=== PATIENT | female | born 1980 | race Caucasian/White ===

== ENCOUNTER → 2021-06-06 11:05 | Outpatient (CLI) | payer BC, SELFPAY ==
[2021-06-06 11:35] LABS: Basophils # 0.1 K/mm3 (0-0.2); Eosinophils % 0.7 % (0.1-12.0); Hematocrit 39.4 % (37.0-47.0); Hemoglobin 12.5 g/dL (12.2-16.2); Lymphocytes # 1.6 K/mm3 (0.7-4.5); Lymphocytes % 28.2 % (10-50); Mean Corpuscular HGB Conc 31.7 g/dL (31.8-35.4); Mean Corpuscular Hemoglobin 26.2 pg (27.0-31.2); Mean Corpuscular Volume 82.6 fl (81-99); Mean Platelet Volume 7.8 fl (7.4-10.4); Monocytes # 0.2 K/mm3 (0.1-1.0); Monocytes % 3.8 % (1.7-9.3); Neutrophils # 3.8 K/mm3 (1.8-7.8); Neutrophils % 66.3 % (37.0-80.0); Platelet Count 358 K/mm3 (142-424); Red Blood Count 4.78 M/mm3 (4.20-5.40); Red Cell Distribution Width 15.1 % (11.5-17.5); White Blood Count 5.7 K/mm3 (4.8-10.8)
[2021-06-06 11:51] LABS: Alanine Aminotransferase 10 U/L (12-78); Albumin Level 4.1 g/dl (3.5-5.0); Albumin/Globulin Ratio 1.3 (1.1-1.8); Alkaline Phosphatase 80 U/L (38-126); Anion Gap 11.6 mEq/L (5-15); Aspartate Amino Transferase 17 U/L (14-36); Bilirubin,Total 0.3 mg/dl (0.2-1.3); Blood Urea Nitrogen 9 mg/dl (7-17); Calcium 9.1 mg/dl (8.4-10.2); Carbon Dioxide 27 mmol/L (22.0-30.0); Chloride 103 mmol/L (98-107); Chol/HDL Ratio 5.8 (1-3.5); Cholesterol 280 mg/dl (140-200); Estimated Glomerular Filt Rate 93 ml/min (>60); GFR (African American) 112 ML/MIN (>60); Globulin 3.1 g/dL (1.3-3.2); Glucose 93 mg/dl (74-100); HDL Cholesterol 48 mg/dl (40-60); Potassium 4.6 mmoL/L (3.5-5.1); Sodium 137 mmol/L (136-145); Total Protein,Serum 7.2 g/dl (6.3-8.2); Triglycerides 147 mg/dl (30-150); Uric Acid 3.4 mg/dl (2.5-6.2); VLDL Cholesterol 29 mg/dL (0-40)
[2021-06-06 12:03] LABS: Direct LDL Cholesterol 209.84 mg/dL (100-129)
[2021-06-06 12:07] LABS: 25-OH Vitamin D, Total 29.3 ng/mL (30-100)
[2021-06-06 12:22] LABS: Erythrocyte Sedimentation Rate 26 mm/hr (0-20); Thyroid Stimulating Hormone 0.84 uIU/mL (0.465-4.68)
[2021-06-06 12:40] LABS: Vitamin B12 239 pg/mL (239-931)
[2021-06-07 12:20] LABS: RA Latex Turbid. 13.7 IU/mL (<14.0)
[2021-06-07 21:08] LABS: Antinuclear Antibodies, IFA Negative (.)
== END ==
PROVIDERS: PCP Physician Assistant; Visit Provider Physician Assistant
DX: M25.542 Pain in joints of left hand (principal); M25.541 Pain in joints of right hand; R53.83 Other fatigue
CPT/HCPCS: 36415; 80053; 80061; 82306; 82607; 84443; 84550; 85025; 85651; 86038; 86431

== ENCOUNTER → 2021-06-19 14:40 | Outpatient (CLI) | payer BC, SELFPAY ==
[2021-06-19 15:03] LABS: Adenovirus,PCR Not Detected (NotDetected); Bordetella Pertussis Not Detected (NotDetected); Chlamydophila Pneumoniae, PCR Not Detected (NotDetected); Coronavirus 19, PCR Not Detected (NotDetected); Coronavirus 229E Not Detected (NotDetected); Coronavirus NL63 Not Detected (NotDetected); Coronavirus OC43 Not Detected (NotDetected); Coronovirus HKU1,PCR Not Detected (NotDetected); Human Metapneumovirus Not Detected (NotDetected); Influenza A, PCR Not Detected (NotDetected); Influenza AH1, 2009 Not Detected (NotDetected); Influenza AH1, PCR Not Detected (NotDetected); Influenza AH3,PCR Not Detected (NotDetected); Influenza B, PCR Not Detected (NotDetected); Mycoplasma Pneumoniae, PCR Not Detected (NotDetected); Parainfluenza 1, PCR Not Detected (NotDetected); Parainfluenza 2, PCR Not Detected (NotDetected); Parainfluenza 3, PCR Not Detected (NotDetected); Parainfluenza 4, PCR Not Detected (NotDetected); Respiratory Syncytial Virus Not Detected (NotDetected); Rhinovirus/Enterovirus Not Detected (NotDetected)
[2021-06-19 16:48] LABS: Basophils # 0.1 K/mm3 (0-0.2); Basophils % 0.9 % (0.1-2.0); Eosinophils # 0.1 K/mm3 (0.0-0.4); Hemoglobin 12.4 g/dL (12.2-16.2); Lymphocytes # 1.8 K/mm3 (0.7-4.5); Lymphocytes % 25.4 % (10-50); Mean Corpuscular HGB Conc 31.7 g/dL (31.8-35.4); Mean Corpuscular Volume 85.2 fl (81-99); Mean Platelet Volume 7.8 fl (7.4-10.4); Monocytes # 0.4 K/mm3 (0.1-1.0); Neutrophils # 4.8 K/mm3 (1.8-7.8); Neutrophils % 67.7 % (37.0-80.0); Platelet Count 362 K/mm3 (142-424); Red Blood Count 4.58 M/mm3 (4.20-5.40); Red Cell Distribution Width 15.9 % (11.5-17.5); White Blood Count 7.1 K/mm3 (4.8-10.8)
== END ==
PROVIDERS: PCP Physician Assistant; Visit Provider Physician Assistant
DX: Z20.822 Contact with and (suspected) exposure to COVID-19 (principal)
CPT/HCPCS: 36415; 85025; 87581; 87632; 87798; C9803; U0003; U0005

== ENCOUNTER → 2021-07-14 10:42 | Outpatient (CLI) | payer BC, SELFPAY | PROVIDERS: Visit Provider Nurse Practitioner | DX: U07.1 COVID-19 (principal) | CPT/HCPCS: C9803; U0003; U0005 ==

== ENCOUNTER → 2021-10-15 11:23 | Outpatient (CLI) | payer BC, SELFPAY ==
[2021-10-15 12:05] LABS: Basophils # 0.1 K/mm3 (0-0.2); Basophils % 1.6 % (0.1-2.0); Eosinophils # 0.1 K/mm3 (0.0-0.4); Hematocrit 39.8 % (37.0-47.0); Lymphocytes # 1.6 K/mm3 (0.7-4.5); Lymphocytes % 34.5 % (10-50); Mean Corpuscular HGB Conc 32.6 g/dL (31.8-35.4); Mean Corpuscular Hemoglobin 27.8 pg (27.0-31.2); Mean Corpuscular Volume 85.3 fl (81-99); Mean Platelet Volume 7.8 fl (7.4-10.4); Monocytes # 0.2 K/mm3 (0.1-1.0); Monocytes % 3.6 % (1.7-9.3); Neutrophils # 2.7 K/mm3 (1.8-7.8); Neutrophils % 59.4 % (37.0-80.0); Platelet Count 334 K/mm3 (142-424); Red Blood Count 4.67 M/mm3 (4.20-5.40); Red Cell Distribution Width 14.4 % (11.5-17.5); White Blood Count 4.6 K/mm3 (4.8-10.8)
[2021-10-15 13:00] LABS: Alanine Aminotransferase 11 U/L (12-78); Albumin Level 3.8 g/dl (3.5-5.0); Albumin/Globulin Ratio 1.4 (1.1-1.8); Alkaline Phosphatase 77 U/L (38-126); Anion Gap 12.5 mEq/L (5-15); Aspartate Amino Transferase 18 U/L (14-36); Blood Urea Nitrogen 8 mg/dl (7-17); Calcium 9.2 mg/dl (8.4-10.2); Carbon Dioxide 26 mmol/L (22.0-30.0); Chloride 103 mmol/L (98-107); Chol/HDL Ratio 6.8 (1-3.5); Cholesterol 285 mg/dl (140-200); Estimated Glomerular Filt Rate 93 ml/min (>60); GFR (African American) 112 ML/MIN (>60); Globulin 2.7 g/dL (1.3-3.2); Glucose 90 mg/dl (74-100); HDL Cholesterol 42 mg/dl (40-60); Magnesium 1.9 mg/dl (1.6-2.3); Potassium 4.5 mmoL/L (3.5-5.1); Sodium 137 mmol/L (136-145); Total Protein,Serum 6.5 g/dl (6.3-8.2); Triglycerides 206 mg/dl (30-150); VLDL Cholesterol 41 mg/dL (0-40)
[2021-10-15 13:01] LABS: Bilirubin,Total < 0.1 mg/dl (0.2-1.3)
[2021-10-15 13:11] LABS: Direct LDL Cholesterol 200.88 mg/dL (100-129)
[2021-10-15 13:20] LABS: 25-OH Vitamin D, Total 36.8 ng/mL (30-100)
[2021-10-15 13:48] LABS: Vitamin B12 596 pg/mL (239-931)
== END ==
PROVIDERS: Visit Provider Nurse Practitioner Family
DX: R53.83 Other fatigue (principal); E78.5 Hyperlipidemia, unspecified; E53.8 Deficiency of other specified B group vitamins; E55.9 Vitamin D deficiency, unspecified
CPT/HCPCS: 36415; 80053; 80061; 82306; 82607; 83735; 85025

== ENCOUNTER 2021-10-26 05:40 | Emergency (ER) | payer BC, SELFPAY ==
[2021-10-26 05:42] VITALS: BP 171/105; PULSE 86; RESP 18; TEMP 36.9; O2SAT 98; BMI 29.9
--- NOTE | 2021-10-26 05:57 | CT_ITS ---
PROCEDURE INFORMATION: Exam: CT Head Without Contrast Exam date and time: 10/26/2021 6:17 AM Age: 41 years old Clinical indication: Other: Headache; Additional info: HALE x 5 days TECHNIQUE: Imaging protocol: Computed tomography of the head without contrast. Radiation optimization: All CT scans at this facility use at least one of these dose optimization techniques: automated exposure control; mA and/or kV adjustment per patient size (includes targeted exams where dose is matched to clinical indication); or iterative reconstruction. COMPARISON: No prior studies were available at the time of this dictation. FINDINGS: Brain: Normal. No evidence of acute intracranial hemorrhage or acute ischemia demonstrated on the examination. Normal alberts white matter differentiation. No mass effect or midline shift. Cortical sulci and subarachnoid cisterns are unremarkable. Cerebral ventricles: No ventriculomegaly. Paranasal sinuses: Right maxillary sinus mucous retention cyst. Sphenoid sinus mucoperiosteal thickening. Mastoid air cells: Visualized mastoid air cells are well aerated. Bones/joints: Unremarkable. No acute calvarial fracture. Soft tissues: Unremarkable. IMPRESSION: 1. No acute intracranial hemorrhage or ischemia. 2. Sinus disease.
--- NOTE | 2021-10-26 05:59 | HMH.EDHA ---
ED Disposition Clinical Impression: Headache Qualifiers: Headache type: unspecified Headache chronicity pattern: acute headache Intractability: not intractable Qualified Code(s): R51.9 - Headache, unspecified Disposition: Home, Self-Care Condition on Discharge: Good Instructions: DI for Headache Additional Instructions: call pcp for follow up Referrals: April Ayala PA [Primary Care Provider] - - Critical Care Critical Care Time: No Attestation: On , the high probability of a clinically significant, sudden or life threatening deterioration of the following system(s) required my full and direct attention, intervention and personal management. The time I documented below is in addition to time spent performing reported procedures but includes the following listed in this critical care notation. Medical Decision Making - Medical Records Medical records reviewed: Yes: I reviewed the patient's medical records. - Benny Inquiry Pt receiving controlled substance: No Vital Signs: 10/26/21 05:42 Temperature 98.4 F Temperature Source Oral Pulse Rate [Right] 86 Respiratory Rate 18 Blood Pressure [Right Arm] 171/105 H Blood Pressure Mean [Right Arm] 127 02 Sat by Pulse Oximetry 98 - Lab Data Lab results reviewed: Yes: I reviewed the patient's lab results. Lab Results 10/26/21 05:44: Urine HCG, Qual Negative 10/26/21 05:44: Urine Color Yellow, Urine Appearance Clear, Urine pH 5.5, Ur Specific [place] 1.015, Urine Protein Negative, Urine Glucose (UA) Negative, Urine Ketones Negative, Urine Blood 3+, Urine Nitrate Negative, Urine Bilirubin Negative, Urine Urobilinogen 0.2, Ur Leukocyte Esterase 2+ A, Urine RBC 5-10, Urine WBC 3-5, Ur Squamous Epith Cells 5-10, Urine Bacteria Trace 10/26/21 06:03: WBC 10.7, RBC 4.93, Hgb 13.5, Hct 41.6, MCV 84.4, MCH 27.4, MCHC 32.4, RDW 14.0, Plt Count 387, MPV 8.3, Neut % (Auto) 87.3 H, Lymph % (Auto) 10.2, [place] % (Auto) 1.5 L, Eos % (Auto) 0.1, Baso % (Auto) 0.9, Neut # (Auto) 9.4 H, Lymph # (Auto) 1.1, [place] # (Auto) 0.2, Eos # (Auto) 0.0, Baso # (Auto) 0.1, Total Counted 100, Neutrophils % (Manual) 81 H, Band Neutrophils % 9.0 H, Lymphocytes % (Manual) 8 L, Monocytes % (Manual) 2, Platelet Estimate Normal, RBC Morphology Normal, ESR 32 H 10/26/21 06:03: Sodium 136, Potassium 4.3, Chloride 104, Carbon Dioxide 24, Anion Gap 12.3, BUN 7, Creatinine 0.70, Estimated Creat Clear 138, Estimated GFR 93, Est GFR ( Amer) 112, Glucose 133 H, Calcium 9.2, Total Bilirubin < 0.1 L, AST 23, ALT 19, Alkaline Phosphatase 79, C-Reactive Protein 13.4 H, Total Protein 7.5, Albumin 4.1, Globulin 3.4 H, Albumin/Globulin Ratio 1.2, Procalcitonin 0.043 10/26/21 06:03: Magnesium 1.9 Result diagrams: 10/26/21 06:03 10/26/21 06:03 Orders (Tests/Meds): ED MEDICATIONS Generic Name Dose Route Start Last Admin Trade Name Freq PRN Reason Stop Dose Admin Sodium Chloride 1,000 mls @ 999 mls/hr 10/26/21 06:15 10/26/21 06:11 Sod Chlor 0.9% 1000ml Bag IV 10/26/21 07:15 999 mls/hr .Q1H1M SHARLENE Administration Sodium Chloride 8 ml 10/26/21 05:57 Sodium Chloride 0.9% 10ml Vial IV 11/25/21 05:56 NEEDED PRN dilute pepcid Discontinued Medications Generic Name Dose Route Start Last Admin Trade Name Freq PRN Reason Stop Dose Admin Diphenhydramine HCl 50 mg 10/26/21 05:57 10/26/21 06:11 Diphenhydramine 50mg/Ml Vial IV 10/26/21 05:58 50 mg ONCE ONE Administration Famotidine 20 mg 10/26/21 05:57 10/26/21 06:11 Famotidine 20mg/2ml Vial IV 10/26/21 05:58 20 mg ONCE ONE Administration Ketorolac Tromethamine 30 mg 10/26/21 05:57 10/26/21 06:11 Ketorolac 30mg/Ml Vial IV 10/26/21 05:58 30 mg ONCE ONE Administration Prochlorperazine Edisylate 10 mg 10/26/21 05:57 10/26/21 06:11 Prochlorperazine 10mg/2ml Vial IV 10/26/21 05:58 10 mg ONCE ONE Administration ORDERS Category Date Time Status Urine Culture Stat Micro 10/26/21 05:44 R
[2021-10-26 06:10] LABS: Urine Pregnancy, HCG Qual. Negative (Negative)
[2021-10-26 06:11] LABS: Microscopic, Urine URINE MICROSCOPIC (MICROSCOPIC)
[2021-10-26 06:11] LABS: Basophils # 0.1 K/mm3 (0-0.2); Basophils % 0.9 % (0.1-2.0); Eosinophils % 0.1 % (0.1-12.0); Hematocrit 41.6 % (37.0-47.0); Hemoglobin 13.5 g/dL (12.2-16.2); Lymphocytes # 1.1 K/mm3 (0.7-4.5); Lymphocytes % 10.2 % (10-50); MANUAL DIFFERENTIAL MANUAL DIFFERENTIAL (MANUAL DIFF); Mean Corpuscular HGB Conc 32.4 g/dL (31.8-35.4); Mean Corpuscular Hemoglobin 27.4 pg (27.0-31.2); Mean Corpuscular Volume 84.4 fl (81-99); Mean Platelet Volume 8.3 fl (7.4-10.4); Monocytes # 0.2 K/mm3 (0.1-1.0); Monocytes % 1.5 % (1.7-9.3); Neutrophils # 9.4 K/mm3 (1.8-7.8); Neutrophils % 87.3 % (37.0-80.0); Platelet Count 387 K/mm3 (142-424); Red Blood Count 4.93 M/mm3 (4.20-5.40); White Blood Count 10.7 K/mm3 (4.8-10.8)
[2021-10-26 06:15] LABS: Appearance,Urine CLEAR (Clear); Bilirubin,Urine Negative (Negative); Blood, Urine 3+ (Negative); Color,Urine YELLOW (Yellow); Glucose,Urine (UA) Negative (Negative); Ketones,Urine Negative (Negative); Leukocyte Esterase,Urine 2+ (Negative); Nitrate,Urine Negative (Negative); PH,Urine 5.5 (5.0-8.5); Protein,Urine Negative (Negative); Specific Gravity, Urine 1.015 (1.005-1.030); Urobilinogen,Urine 0.2 EU/dl (0.2)
[2021-10-26 06:22] LABS: Alanine Aminotransferase 19 U/L (12-78); Albumin Level 4.1 g/dl (3.5-5.0); Albumin/Globulin Ratio 1.2 (1.1-1.8); Alkaline Phosphatase 79 U/L (38-126); Anion Gap 12.3 mEq/L (5-15); Aspartate Amino Transferase 23 U/L (14-36); Blood Urea Nitrogen 7 mg/dl (7-17); Calcium 9.2 mg/dl (8.4-10.2); Carbon Dioxide 24 mmol/L (22.0-30.0); Chloride 104 mmol/L (98-107); Creatinine Clearance Estimated 138 mL/min (50-200); Estimated Glomerular Filt Rate 93 ml/min (>60); GFR (African American) 112 ML/MIN (>60); Globulin 3.4 g/dL (1.3-3.2); Glucose 133 mg/dl (74-100); Magnesium 1.9 mg/dl (1.6-2.3); Potassium 4.3 mmoL/L (3.5-5.1); Sodium 136 mmol/L (136-145); Total Protein,Serum 7.5 g/dl (6.3-8.2)
[2021-10-26 06:23] LABS: Lymphocytes % 8 % (10-50); Monocytes % 2 % (2-9); Neutrophils % 81 % (42-76); Platelet Estimate Normal; RBC Morphology Normal; Total Cells Counted 100
[2021-10-26 06:24] LABS: Bilirubin,Total < 0.1 mg/dl (0.2-1.3)
[2021-10-26 06:27] LABS: C-Reactive Protein 13.4 mg/L (0-4)
[2021-10-26 06:31] LABS: Bacteria,Urine Trace /lpf
[2021-10-26 06:40] LABS: Erythrocyte Sedimentation Rate 32 mm/hr (0-20)
[2021-10-26 06:41] LABS: Procalcitonin 0.043 ng/mL (0.0-2.0)
[2021-10-26 07:35] VITALS: BP 152/78; PULSE 78; RESP 16; TEMP 36.6; O2SAT 98
== END 2021-10-26 07:37 | disposition home or self-care (01) ==
PROVIDERS: Emergency Provider Emergency Medicine; PCP Physician Assistant
DX: R51.9 Headache, unspecified (principal); Z86.69 Personal history of other diseases of the nervous system and sense organs; Z88.1 Allergy status to other antibiotic agents
CPT/HCPCS: 70450; 80053; 81001; 81025; 83735; 84145; 85007; 85025; 85651; 86140; 87086; 96365; 96375; 99284

== ENCOUNTER → 2022-07-14 10:22 | Outpatient (CLI) | payer BC, SELFPAY ==
--- NOTE | 2022-07-14 10:36 | US_ITS ---
FINAL REPORT CLINICAL HISTORY: IRREGULAR MENSTRUAL BLEEDING FINDINGS: Transvaginal sonographic images of the pelvis were obtained. The uterus measures 7.6 x 2.7 x 3.6 cm. The endometrium measures 3 mm. There is a 4 mm hyperechoic focus adjacent to the endometrium of uncertain etiology, could represent a small cyst. The left ovary is not visualized consistent with surgical resection. The right ovary measures 3.0 cm in length. There is a small cyst or follicle in the right ovary measuring 11 mm. No free fluid is identified. IMPRESSION: Hyperechoic focus adjacent to the endometrium, could represent a small mass. Follow-up ultrasound or MRI may be helpful. Reviewed, Interpreted and Dictated by Armand Barboza III, MD Transcribed by Yoly Rivero Authenticated and [facility]
== END ==
LOC: RAD 10:22
PROVIDERS: PCP Physician Assistant; Visit Provider Physician Assistant
DX: N92.6 Irregular menstruation, unspecified (principal)
CPT/HCPCS: 76830

== ENCOUNTER → 2022-09-30 12:51 | Outpatient (CLI) | payer BC, SELFPAY ==
--- NOTE | 2022-09-30 12:58 | MM_ITS ---
PROCEDURE INFORMATION: Exam: MG Bilateral Screening 3D Mammography Exam date and time: 09/30/2022 12:53 PM Age: 42 years old Clinical indication: Screening examination; Additional info: Routine screening mammogram TECHNIQUE: Imaging protocol: Bilateral Screening tomosynthesis and 2D mammography including computer-aided detection (CAD) when performed. COMPARISON: 1. MG SCREENING DG MAMMOGRAM 05/06/2021 9:17 AM 2. MG ANTHONY DIAG DG MAMMOGRAM 05/01/2020 10:50 AM 3. US BREAST BILAT LIMITED 05/01/2020 11:08 AM FINDINGS: MAMMOGRAPHY: Breast composition: The breasts are heterogeneously dense, which may obscure small masses. Mass: No suspicious masses. Architectural distortion: No suspicious distortion. Calcifications: No suspicious calcifications. Asymmetric density: None. Skin thickening: None. Axillary adenopathy: None. IMPRESSION: No mammographic evidence of malignancy. Annual screening is recommended unless otherwise clinically indicated. ASSESSMENT: BI-RADS Category 1: Negative
--- NOTE | 2022-09-30 12:58 | US_ITS ---
FINAL REPORT CLINICAL HISTORY: followup hyperechoic focus adjacent to endometrium COMPARISON: July 14, 2022 FINDINGS: PELVIC ULTRASOUND Transvaginal pelvic exam: Uterus shows normal size and morphology. Endometrial stripe measures 2 mm. Ovoid hyperechoic subendometrial lesion near the anterior uterine fundus measuring 3 mm. No new subendometrial lesion. Right ovary shows normal and size morphology. Normal flow is seen by Doppler exam There is no free fluid. IMPRESSION: 3 mm hyperechoic ovoid sub endometrial lesion may represent adenomyosis or less likely a small polyp. Reviewed, Interpreted and Dictated by Dhiraj Cleaning MD Transcribed by Link Dozier Authenticated and [facility]
== END ==
LOC: RAD 12:54
PROVIDERS: PCP Physician Assistant; Visit Provider Obstetrics & Gynecology
DX: N93.9 Abnormal uterine and vaginal bleeding, unspecified (principal); R93.89 Abnormal findings on diagnostic imaging of other specified body structures; Z12.31 Encounter for screening mammogram for malignant neoplasm of breast
CPT/HCPCS: 76830; 77063; 77067

== ENCOUNTER → 2022-09-30 14:48 | Outpatient (POV) | payer BC, SELFPAY | PROVIDERS: Visit Provider Dermatology | DX: Z00.00 Encounter for general adult medical examination without abnormal findings (principal) ==

== ENCOUNTER 2023-11-06 09:47 | Outpatient (CLI) | payer BC, SELFPAY ==
--- NOTE | 2023-11-06 09:52 | MM_ITS ---
PROCEDURE INFORMATION: Exam: MG Bilateral Screening 3D Mammography Exam date and time: 11/06/2023 9:47 AM Age: 43 years old Clinical indication: Screening examination TECHNIQUE: Imaging protocol: Bilateral Screening tomosynthesis and 2D mammography including computer-aided detection (CAD) when performed. COMPARISON: 1. MG MM DIG SCREENING MAMM BI W/CAD 09/30/2022 12:53 PM 2. MG SCREENING DG MAMMOGRAM 05/06/2021 9:17 AM FINDINGS: MAMMOGRAPHY: Breast composition: The breasts are heterogeneously dense, which may obscure small masses. Mass: None. Architectural distortion: None. Calcifications: No suspicious calcifications. Asymmetric density: None. Skin thickening: None. Axillary adenopathy: None. IMPRESSION: No mammographic evidence of malignancy. Annual screening is recommended unless otherwise clinically indicated. ASSESSMENT: BI-RADS Category 1: Negative
== END 2023-11-06 23:59 | disposition home or self-care (01) ==
LOC: RAD 09:49
PROVIDERS: PCP Physician Assistant; Visit Provider Obstetrics & Gynecology
DX: Z12.31 Encounter for screening mammogram for malignant neoplasm of breast (principal)
CPT/HCPCS: 77063; 77067

== ENCOUNTER 2024-04-14 12:42 | Outpatient (RCR) | payer BC, SELFPAY | END 2024-04-14 23:59 | disposition home or self-care (01) | LOC: OT 12:42 | PROVIDERS: PCP Physician Assistant; Visit Provider Physician Assistant | DX: M62.838 Other muscle spasm (principal) ==

== ENCOUNTER 2024-04-14 13:52 | Outpatient (RCR) | payer BC, SELFPAY ==
--- NOTE | 2024-04-14 16:17 | HMH.PTOPEV ---
PT Outpatient Evaluation Rehab PT Outpatient Evaluation Start: 04/14/24 15:56 Freq: Status: Active Protocol: Document 04/14/24 15:56 TAMARA (Rec: 04/14/24 16:16 TAMARA [id number]) E-signed By Francis Aleman, PT Outpatient Therapy Subjective History Subjective History The patient is a 44 yof who presents to OP therapy with complaints of bilateral neck pain that is in her neck and down to her shoulders and between her scapulae. She reports this has been going on for about a year, but became more severe approximately 3-4 months ago. She reports that she recently underwent a divorce, in which she felt she was in an unsafe environment. She reports that she spent lots of time lying in the bedroom alone with her neck in an awkward position. She believes this, along with the stress could be the cause. She reports she has difficulty turning her head to the right. She reports her neck pain is much worse at the conclusion of the day and sometimes feels like she can barely hold her head up. She reports one episode of bilateral tingling into the hands which was over a month ago and only last for a few seconds. She reports difficulty with deskwork due to the position that she must keep her head. She reports that she was recently prescribed prednisone, which seems to have helped some. New diagnosis of cancer in past 12 No months? Chief Complaint Pain,Stiff,Gives out/Unstable Symptom Type Ache,Throb Symptoms Relieved By Rest/Positioning,Heat, Prescription Meds Symptoms Aggravated By Sitting,Twisting Prior Functional Limitations None Current Functional Limitations Lifting,Desk Work/Reading, Driving,Sleeping Level of pain today (0-10) 3 Pain scale - at its best (0-10) 9 Pain scale - at its worst (0-10) 2 Cervical Eval Palpation Cervical Muscles R Cervical Paraspinal,L Cervical Paraspinal,R CT Junction,L CT Junction,R Upper Trapezius,L Upper Trapezius,R Thoracic Paraspinals,L Thoracic Paraspinals Cervical/Thoracic Palpation Findings Tenderness,Spasm Posture Head/C-Spine Posture Sitting Position Neutral Position Head/C-Spine Posture Standing Position Neutral Position Flexibility Deficits Upper Trapezius Muscle Length (R) Moderate Tightness,(L) Moderate Tightness Levaetor Scapulae Muscle Length (R) Moderate Tightness,(L) Moderate Tightness Pectoralis Minor Muscle Length (R) Moderate Tightness,(L) Moderate Tightness Passive Joint Mobility Cervical PIVM Dec: R C5/6 L C5/6 R C6/7 L C6/7 R C7/T1 L C7/T1 WNL: R OA L OA R AA L AA R C2/3 L C2/3 R C3/4 L C3/4 R C4/5 L C4/5 AROM Cervical Spine Extension Active Range of 12 Motion (degrees) Cervical Spine Flexion Active Range of 34 Motion (degrees) Cervical Spine Right Lateral Flexion 18 Active Range of Motion (degrees) Cervical Spine Left Lateral Flexion 15 Active Range of Motion (degrees) Cervical Spine Right Rotation Active 20 Range of Motion (degrees) Cervical Spine Left Rotation Active 28 Range of Motion (degrees) MMT Bilateral Deltoid (C5) 5 Normal Biceps Brachii Strength Grade 5 Normal Wrist Extension Strength Grade 5 Normal Triceps Brachii Strength Grade 5 Normal Wrist Flexion Strength Grade 5 Normal Extensor Pollicis Longus Strength Grade 5 Normal Finger Abduction Strength Grade 5 Normal DTR Rt Biceps 2+ Lt Biceps 2+ Rt Brachioradialis 2+ Lt Brachioradialis 2+ Rt Triceps 2+ Lt Triceps 2+ Special Test C-Spine Foraminal Compression ([place]) Negative Left,Negative Right Test C-spine Verterbral Accessory Movements Central P/A [place],Right P/A that Elicit Symptoms [place] C-Spine Foraminal Distraction Test Negative C-Spine Compression Test Negative Left,Negative Right Neck Disability Index Neck Disability Index Section 1: Pain Intensity The pain is moderate at the moment Section 2: Personal Care (washing, It is painful to look after dressing, etc.) myself and I am slow and careful Section 3: Lifting I can lift heavy weights but it gives extra pain Section 4: Reading I can't read as much as I want because of moderate pain in my neck Section 5: Headaches I have slight headaches, which come infrequently Section 6: Concentration I can concentrate fully when I want to with slight difficulty Section 7: Work I can do most of my usual work , but no more Section 8: Driving I can drive my car as long as I want with moderate pain in my neck Section 9: Sleeping My sleep is moderately disturbed (2-3 hrs. sleepless) Section 10: Recreation I am able to engage in a few of my usual recreation activities because NDI Score 20 Miscellaneous Dx PT Eval Objective Objective Rhomboid B: 3/5 Lower Trap B: 3/5 TTP 2/4: B T1-T4 Deep Cervical Neck Flexor Endurance: 4 seconds Outpatient Therapy Assessment Impairments Problems/Impairmments Palpation Tenderness,Impaired Range of Motion,Impaired Strength,Impaired Endurance, Impaired Desk/Computer Activities,Subjective C/O Pain Prognosis Rehab Potential Good Comment Pt demonstrates impairments in deep cervical neck flexor endurance, accompanied with subjective reports of cervical instability. The pt also demonstrates impaired ROM of the cervical spine along with a kyphotic and hypomobile thoracic spine. These signs and symptoms are consistent with neck pain with movement coordination impairments. Clinical Impression Consistent with Diagnosis Yes Short Term Goals Number of Weeks 4 Decreased Palpation Tenderness Yes: 1/4 to cervical spine and thoracic spine Increase Range of Motion Yes: 75% WNL Increase Strength Yes: 4/5 to Lower trap and Rhomboids BL Increase Endurance Yes: DCNF: 15s Increase Ability to Drive/Ride in Car Yes: 1 hour with minimal difficulty Improve Tolerance to Desk/Computer Yes: Normal days work with 3/ Activities 10 pain Improve Neck Disability Index Score Yes: to 13 Decrease Subjective C/O Pain Yes: 5/10 at worst Patient to be Ind w/ HEP Yes Fdc Goals Number of Weeks 8 Decreased Palpation Tenderness Yes: 0/4 to C and T spine Increase Range of Motion Yes: WNL Increase Strength Yes: 5/5 to rhomboids and lower trap Increase Endurance Yes: DCNF to 30s Increase Ability to Drive/Ride in Car Yes: 2 hours no difficulty Improve Tolerance to Desk/Computer Yes: Normal days work with no Activities pain or symptoms Improve Neck Disability Index Score Yes: to 5 Decrease Subjective C/O Pain Yes: 2/10 at worst Patient to be Ind w/ Advanced HEP Yes Outpatient Therapy Plan of Care Treatment Plan May Include Therapeutic Exercise Including Home Yes Exercise Program Manual Therapy Techniques Yes Neuromuscular Re-education Yes Therapeutic Activities to Return to Yes Previous Functional/Work Level Gait Training Yes ADL/Self Care Education Yes Mechanical Traction Yes Dry Needling Yes Thermal Modalities Yes Electrical Stimulation Yes Ultrasound/Phonophoresis Yes Massage Yes Manual Lymphatic Drainage Yes Eval/Re-Eval Yes Frequency Times per week 2 Duration Number of Weeks 8 Addendums This patient is a candidate for social No or vocational rehab? Patient/Guardian verbally acknowledges Yes understanding of treatment program and consents to further treatment? Patient/Guardian verbally acknowledges Yes understanding of diagnosis, prognosis and goals for treatment? Eval Complexity PT Charges 57230 - Moderate Complexity Shoulder/Elbow Eval Shoulder Objective Measurements Elbow Objective Measurements PHYSICIAN CERTIFICATION: I certify the specified therapy services for Jacqui Pedro are required, authorized, and reviewed every 30 days.
== END 2024-04-14 23:59 | disposition home or self-care (01) ==
LOC: PT 13:52
PROVIDERS: Visit Provider Physician Assistant
DX: M62.838 Other muscle spasm (principal)
CPT/HCPCS: 97163

== ENCOUNTER 2024-06-01 09:54 | Outpatient (CLI) | payer BC, SELFPAY ==
[2024-06-01 10:34] LABS: Magnesium 1.8 mg/dl (1.6-2.3)
[2024-06-01 10:53] LABS: Free Thyroxine Index 3.5 ug/dL (5.93-13.13); T4 (Thyroxine) 15.4 ug/dl (5.53-11.0); Triiodothryronine (T3) Uptake 23 % (23.5-40.5)
[2024-06-01 10:55] LABS: HCG,Quantitative < 2 mIU/ml (0-5.42)
[2024-06-01 11:07] LABS: Thyroid Stimulating Hormone 2.48 uIU/mL (0.465-4.68)
[2024-06-01 11:31] LABS: Ferritin 11.3 ng/ml (6.24-137)
[2024-06-01 11:55] LABS: Folate > 20.00 ng/mL
[2024-06-02 03:41] LABS: Estradiol 11.2 pg/mL (.); FSH 3.2 mIU/mL (.); Testosterone,Total 44 ng/dL (4-50)
[2024-06-02 05:08] LABS: Thyroid Peroxidase Antibodies 14 IU/mL (0-34)
[2024-06-02 08:14] LABS: LH 3.4 mIU/mL (.)
== END 2024-06-01 23:59 | disposition home or self-care (01) ==
PROVIDERS: PCP Physician Assistant; Visit Provider Obstetrics & Gynecology
DX: R53.83 Other fatigue (principal); F33.9 Major depressive disorder, recurrent, unspecified; F41.1 Generalized anxiety disorder
CPT/HCPCS: 36415; 82670; 82728; 82746; 83001; 83002; 83735; 84403; 84436; 84443; 84479; 84702; 86376

== ENCOUNTER 2024-06-21 11:05 | Outpatient (CLI) | payer BC, SELFPAY | END 2024-06-21 23:59 | disposition home or self-care (01) | LOC: RT 11:06 | PROVIDERS: PCP Physician Assistant; Visit Provider Internal Medicine | DX: R00.2 Palpitations (principal) | CPT/HCPCS: 93270 ==

== ENCOUNTER 2024-07-01 10:40 | Outpatient (CLI) | payer BC, SELFPAY ==
--- NOTE | 2024-07-01 10:43 | CA_ITS ---
APPROVED REPORT EXAM: Comprehensive 2D, Doppler, and color-flow Echocardiogram Analysis Director: Janis Mclean RT(R) Ht: 5 ft 5 in Wt: 184lbs BSA: 1.91 BP: 150/93 mmHg Indications: abn EKG, dyspnea, chest tightness, CP, HTN, hyperlipidemia, SRINIVASAN, ALY. 2D Dimensions Left Atrium 2.65 cm F: 2.7 - 3.8 LVEF (Lopez's) 56.30 % F: 54 - 74 LVOT 1.80 cm (M/F) 1.5-2.5 LV Volume 87.00 mL F: 46 - 106 LV Volume Index 45.5 mL/m2 F: 29 - 61 LA Volume 19.40 mL LA Volume Index 10.16 mL/m2 (M/F) 16-34 EF AP4 60.50 % EF AP2 43.2 % EF BP 56.3 % GL Strain -13.6 % M-Mode Dimensions RVDd 1.93 cm (0.9-2.6) LVDd 4.65 cm (3.5-5.7) Ao Diam 2.83 cm (2.0-3.7) LVDs 3.40 cm (3.5-5.7) IVSd 0.54 cm (0.6-1.1) PWd 0.75 cm (0.6-1.1) EF (Teich) 52.50% FS 26.90% EDV (Teich) 99.80 mL ESV (Teich) 47.40 mL LV Diastology E Decel Time 153 (160-240 msec) E/A Ratio 0.8 MED E' 7.2 (>= 7 cm/sec) E'/MED E' Ratio 8.42 (<= 14) LAT E' 8.9 (>= 10 cm/sec) E/LAT E' Ratio 6.81 (<= 14) Mitral Valve MV E Max Ace. 61.0 (40-130 cm/s) MV A Velocity 73.0 (40-130 cm/s) E/A Ratio 0.83 MV Decel. Time 153 (160-240 ms) Left Ventricle The left ventricle is normal size. The left ventricular systolic function is normal. The left ventricular ejection fraction is within the normal range. There is normal left ventricular wall thickness. There is normal LV segmental wall motion. The left ventricular diastolic function is normal. LVEF is 60%. Right Ventricle The right ventricle is normal size. The right ventricular systolic function is normal. Atria The left atrium size is normal. The right atrium size is normal. There is no Doppler evidence of interatrial shunt. Aortic Valve The aortic valve opens well. There is no aortic valvular stenosis. No aortic regurgitation is present. Mitral Valve The mitral valve is normal in structure. No evidence of mitral valve stenosis. There is no mitral valve regurgitation noted. Tricuspid Valve Tricuspid valve is grossly normal in structure and function. Trace tricuspid regurgitation. There is insufficient TR jet to estimate RVSP. Pulmonic Valve The pulmonary valve is normal in structure. Trace pulmonic regurgitation. Great Vessels The aortic root is normal in size. IVC is normal in size and collapses >50% with inspiration. Pericardium There is no pericardial effusion. Other Information Study Quality: Adequate Conclusion Normal biventricular systolic function. No significant valvular stenosis or regurgitation. Electronically signed by : Licha Flynn MD 07/09/2024 23:58:35
--- NOTE | 2024-07-01 10:44 | CT_ITS ---
APPROVED REPORT Client Consultant: CLINICAL INDICATION Chest Pain TECHNIQUE Image Acquisition: A 128 slice MDCT scanner ([employer] View) was used for data acquisition. A noncontrast coronary calcium scan was performed. A CT attenuation threshold of 130 Hounsfield units (HU) was used for the detection of calcium in contiguous voxels of 1 sq mm in area to be counted as individual lesions. Bolus tracking in the ascending aorta with a threshold of 180 HU was performed. Immediately afterwards, ECG synchronized cardiac CT was then performed from the cardiac base to apex using retrospective gating with ECG tube current modulation. A total of 85 mL of Isovue 370 mg/mL contrast medium was administered at 5 mL/sec followed by a saline flush using a biphasic injection protocol. A tube voltage of 120 KVp was used. The patient received the following medications prior to the cardiac CT. 75 mg of oral metoprolol 15 mg of oral ivabradine The average heart rate at the time of acquisition was 55 bpm and regular. Image Reconstruction Transaxial images were reconstructed at 0.67 mm slide thickness. Data was reviewed interactively on an advanced workstation capable of 2 and 3-dimensional displays in all conventional reconstruction formats, including multiplanar reformations, maximum intensity projections, curved multiplanar reformations, and volume rendered reconstructions. When applicable, selected routine images describing the relevant coronary anatomy and pathology were saved and sent to PACS. Complications None Technical Quality Overall image quality was good. Coronary artery opacification was adequate. Total DLP (Dose-Length Product) is 1757.4 mGy-cm. The reported value represents the total of one or more individual components during the CT acquisition of this date and at this time, and as such, the same value may appear in more than one CT report depending on the interpreting/reporting physicians. COMPARISON None FINDINGS CT Coronary Calcium Scoring LMA (Left Main Artery) = 0 LAD (Left Anterior Descending) = 8 LCX (Left Coronary Circumflex) = 0 RCA (Right Coronary Artery) = 0 Total Calcium Score = 8 using the AJ-130 method. The observed calcium score of 8 is at 96th percentile for subjects of the same age, sex, and race/ethnicity. The interpretation of the calcium heart score is based on the following continuum*: 0 = no calcified plaque detected (risk of coronary artery disease is very low ??? less than 5%) 1-10 = calcium detected in extremely minimal levels (risk of coronary diseases is still low ??? less than 10%) 11-100 = mild levels of plaque detected with certainty (mild or minimal narrowing of heart arteries is likely) 101-400 = definite,at least moderate levels of plaque detected (relatively high risk of a heart attack within 3-5 years) >401-999 = extensive levels of plaque detected (high risk of heart attack, high levels of vascular disease are present, high likelihood of at least one significant coronary narrowing) *The calcium heart score quantifies the burden of coronary calcification/plaque in the coronary arteries. The calcium heart score is not able to evaluate the presence or burden of non-calcified (i.e. soft) plaque. There is no identifiable calcification in the aortic valve, mitral annulus or mitral valve, pericardium, or myocardium. Coronary CT Angiography The coronary arterial system is right dominant. Quantitative Stenosis Grading: Left Main (LM): The left main originates normally from the left sinus of Valsalva. The LM bifurcates into the left anterior descending artery and left circumflex artery. The LM is patent with no evidence of atherosclerosis. Left Anterior Descending (LAD) and Diagonal Branches: The LAD gives off 3 diagonal branch(es). There is mixed calcified/non-calcified plaque in proximal LAD segment, with 25-49% luminal stenosis. There is no evidence of LAD-myocardial bridge. Left Circumflex (LCX) and Obtuse Marginals (OM): The LCX gives off 1 Obtuse Marginal (OM) branch(es). The LCX and its branches are patent with no evidence of atherosclerosis. Right Coronary Artery (RCA): The RCA originates normally from the right sinus of Valsalva. The RCA gives off a posterior descending artery (PDA) and posterolateral (PL) branches. The RCA and its branches are patent with no evidence of atherosclerosis. Non-Coronary Cardiac Findings: Analysis of the left ventricular (LV) structure and function was performed after 3-D reconstruction of the LV from axial images, with user-corrected automatic contouring for assessment of LV volumes and user-defined reconstruction from oblique planes for measurement of 3-D cardiac structure and function. -The left ventricle systolic function is normal. -There is no left atrial appendage filling defect. Two right pulmonary veins and two left pulmonary veins drain normally into the left atrium. -No pericardial thickening or calcification. -Central and branch pulmonary arteries in the qplom-rv-hoec are unremarkable. -Thoracic aorta within the visualized thoracic aortic-branches in the lhsvd-xi-vhpf is unremarkable. Extracardiac Structures No significant extra-cardiac findings. Note, however, that this study is focused on the cardiac findings. IMPRESSION -Presence of coronary calcification with an Agatston score = 8 using the AJ-130 method. -The observed calcium score of 8 is at 96th percentile for subjects of the same age, sex, and race/ethnicity. -Mild non-obstructive atherosclerosis in the proximal LAD segment, with no evidence of significant flow-limiting atherosclerosis of the coronary arteries. -CAD-RADS 2. Management recommendations per ACC/AHA guidelines*, as clinically appropriate. *Recommendations: CAD RADS 0: Reassurance. Consider non-atherosclerotic causes of chest pain. CAD RADS 1: Consider non-atherosclerotic causes of chest pain. Consider preventive therapy and risk factor modification. CAD RADS 2: Consider non-atherosclerotic causes of chest pain. Consider preventive therapy and risk factor modification, particularly for patients with nonobstructive plaque in multiple segments. CAD RADS 3: Consider further functional testing. Consider symptom-guided anti-ischemic and preventive pharmacotherapy as well as risk factor modification per published guideline statements. CAD RADS 4A: Consider further functional testing or invasive coronary angiography with revascularization per published guideline statements. Consider symptom-guided anti-ischemic and preventive pharmacotherapy as well as risk factor modification per published guideline statements. CAD RADS 4B: Invasive coronary angiography recommended with revascularization per published guideline statements. Consider symptom-guided anti-ischemic and preventive pharmacotherapy as well as risk factor modification per published guideline statements. CAD RADS 5: Consider invasive angiography and/or viability assessment with revascularization per published guideline statements. Consider symptom-guided anti-ischemic and preventive pharmacotherapy as well as risk factor modification per published guideline statements. CRITICAL RESULT None COMMUNICATION Per this written report The coronary and cardiac findings of this CCTA were reviewed, reported, and signed by Rakesh Flynn MD (Blueprint Tracer) Conclusion Electronically signed by : Licha Flynn MD 07/04/2024 11:19:43
[2024-07-01 11:34] VITALS: BMI 30.6
[2024-07-01] MEDS: METOPROLOL TARTRATE 50MG TABLET PO (11:49)
[2024-07-01] MEDS: IVABRADINE HCL 7.5MG TABLET PO (11:49)
[2024-07-01 11:53] LABS: Urine Pregnancy, HCG Qual. Negative (Negative)
[2024-07-01 11:55] LABS: Chloride 100 mmol/L (98-107); Sodium 137 mmol/L (136-145)
[2024-07-01 11:56] LABS: Potassium 4.1 mmoL/L (3.5-5.1)
[2024-07-01 11:58] LABS: Blood Urea Nitrogen 11 mg/dl (7-17); Creatinine Clearance Estimated 137 mL/min (50-200); Estimated Glomerular Filt Rate 91 ml/min (>60); GFR (African American) 111 ML/MIN (>60)
[2024-07-01 11:59] LABS: Anion Gap 10.1 mEq/L (5-15); Calcium 9.1 mg/dl (8.4-10.2); Carbon Dioxide 31 mmol/L (22.0-30.0); Glucose 98 mg/dl (74-100)
[2024-07-01 12:48] VITALS: BP 184/100; PULSE 65; RESP 16; O2SAT 99
[2024-07-01 12:51] VITALS: BP 160/96; PULSE 62; RESP 16; O2SAT 99
[2024-07-01 12:54] VITALS: BP 131/90; PULSE 61; RESP 16; O2SAT 99
[2024-07-01] MEDS: SODIUM CHLORIDE 0.9% 10ML SYR (RAD ONLY) 10 ML IV (13:01)
[2024-07-01] MEDS: IOPAMIDOL-370 (76%);100ML BOTTLE 85 ML IV (13:01)
[2024-07-01] MEDS: 0.9 % SODIUM CHLORIDE 50 ML VIAL IV (13:01)
[2024-07-01 13:05] VITALS: BP 135/81; PULSE 60; RESP 16; O2SAT 99
== END 2024-07-01 13:10 | disposition home or self-care (01) ==
LOC: RT 10:41 → RAD 11:33
PROVIDERS: PCP Physician Assistant; Visit Provider Internal Medicine
DX: R94.31 Abnormal electrocardiogram [ECG] [EKG] (principal); R06.00 Dyspnea, unspecified; I10 Essential (primary) hypertension; R40.0 Somnolence; R07.89 Other chest pain
CPT/HCPCS: 75574; 80048; 81025; 93306; Q9967

== ENCOUNTER → 2024-07-18 06:16 | Outpatient (CLI) | payer BC, SELFPAY | LOC: SL 06:16 | PROVIDERS: PCP Internal Medicine; Visit Provider Internal Medicine | DX: G47.33 Obstructive sleep apnea (adult) (pediatric) (principal); G47.9 Sleep disorder, unspecified; R06.83 Snoring; R40.0 Somnolence; G47.00 Insomnia, unspecified; R00.2 Palpitations | CPT/HCPCS: G0399 ==

== ENCOUNTER 2024-11-14 14:54 | Outpatient (CLI) | payer BC, SELFPAY ==
--- OUTSIDE RECORDS SUMMARY | 2024-06-08 05:00 | XMS_ITS ---
[facility] Address [address] [facility] [address] [place] [id number] Care Team Providers Care Pilot Control Operator Name Role Phone April Ayala Primary [...] 7.3 Performing Lab: Notes/Report: Test performed by [facility] [address] [place] [address] , [address], [place] [address] Santy Lee MD, Tool Repairer CLIA: [id number] Erythrocyte Sedimentation Rate (ESR), Automated 31 <26 mm/hr Rheumatoid Factor 16.0 <14.1 IU/mL C-Reactive Protein (CRP) 0.73 <0.50 mg/dL Antinuclear Antibodies (JOSH) Screen, Reflex JOSH 9 Panel Negative Negative This test is performed by Multiplex Bead Immunoassay methodology. Antinuclear Antibodies (JOSH) Result Note SEE COMMENT For positive Autoantibodies, please refer to the interpretive chart here: [email or web address] CCP Antibodies 7.3 <0.5-3.0 U/mL P-T4 Free (thyroxine) Reviewed date:06/12/2024 10:07:14 PM Interpretation:Normal Performing Lab: Notes/Report: Test performed by [facility], [facility] [address] [facility] , [address], [place] [address] Santy Lee MD, Tool Repairer CLIA: [id number] Thyroxine Free (free T4) 1.06 0.86-1.76 ng/dL Reason For Referral Diagnosis 1 Shortness of breath (R06.02) Diagnosis 2 Other fatigue (R53.8 3) [facility] Referring Provider First Name April Referring Provider Last Name Lucy Referring Provider Speciality Physician Irrigation Service Technician Referred Provider Cardiology, . Referred Provider Specialty Cardiovascul ar Disease General Notes April Ayala 06/08 9:51:12 AM > Pt needs to see cardiology at [facility], Celina Cook 06/08/2024 11:20:46 AM > faxed to [facility] Cardiology Referral Priority Routine REASON FOR VISIT discuss blood work done by OB on thyroid Medications Medication SIG (Take, Route, Frequency, Duration) Notes Start Date End Date Status Lisinopril 5 MG 1 tab(s) orally once a day for 90 days Active Escitalopram Oxalate 20 MG Take 1 tablet by mouth once daily for 90 days for 90 Active Cyclobenzaprine HCl 5 MG 1 tablet Orally three times a day as needed Active Omeprazole 20 MG Take 1 capsule by [facility] once daily for 90 days Active Rosuvastatin Calcium 10 MG 1 tablet Oral ly Once a day for 90 days Active Richa Allergy 180 MG 1 tablet Swallow whole with water; do not take with fruit juices. Orally Once a day for 30 day(s) Active Flonase Allergy Relief 50 MCG/ACT 1 spray in each nostril Nasally Once a day for 30 day(s) 05/13/2023 Active Multivitamin - 1 tablet Orally Once a day for 30 day(s) Active Junel FE 06/13 1-20 MG-MCG 1 tab(s) orall y once a day Active Vital Signs Blood pressure systolic 124 mm Hg 06/08/19 25 Blood pressure diastolic 68 mm Hg 025 Heart Rate 90 /min 06/08/2024 Height 65.50 in 06/08/2024 Weight 186.2 lbs 06/08/2024 BMI 30.51 kg/m2 06/08/2024 Encounters Encounter Location Date Provider Diagnosis [facility] [address] [place] [id number] 06/08/2024 April Ayala Other fatigue R53.83 ; [...] rt test results, Reason: Progress Notes * CHICASPATRICIADOB:[birth year] (44 yo F)Acc No.[id number]:06/08/2024 Progress Notes Patient: PATRICIA CHOU Provider: MARIANA Knight :1980 A ge:44 Y S ex:Female Date:06/08/2024 Address:[address] [place] [address] [id number] Subjective: * Chief Complaints: [...] right ovary with removal. * Surgical History: [facility] -Removal of right ovary 07/2019. * Family [...] ome smoke detector use: yes. 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 * Medications: T aking Richa Allergy 180 [...] * Vitals: W t:186.2, Temp:98.2, BP:124/68, HR:90, Nurse:MMArlen, Ht: 65.50, BMI:30.51. * Examination: G eneral Examination: General Appearance: D epressed, tearful. HEENT: u nremarkable. Oral cavity: n o lesions, mucosa moist and WNL, no erythema. Neck: s upple, no lymphadenopathy. Chest: n ormal shape and expansion. Heart: R SR. Lungs: c lear to auscultation. Abdomen: bowel sounds present, soft and nontender, no organomegaly or masses, no guarding or rigidity. Neurologic Exam: I ntact, gait normal. Skin: n ormal, no rash. Peripheral pulses: n ormal (2+) bilaterally. Extremities: n o leg edema. Assessment: * Assessment: [...] T4) 1.06 0.86-1.76 - ng/d L * April Ayala S 06/12/2024 10 :06:56 PM > see TE 4.?Shortness of breath? Notes: Will make cardiology referral.? Referral To:. Cardiology??Cardiovascular Disease ?Reason: * Follow Up: v ia phone to report test results * Billing Information: * Visit Code: 23145 Office Visit, Est Pt., Level 4. * Procedure Codes: * Electronic signature of MARIANA Preciado on 11/14/2024 at 02:56 PM EDT Sign off status: Pending * Provider: MARIANA Knight Date: 0 06/08/2024 Generated for Pedro tovar/Alexander/eTransmitting on: 0 11/14/2024 02:56 PM EDT History and Physical Notes * [...]
--- OUTSIDE RECORDS SUMMARY | 2024-07-28 10:30 | XMS_ITS ---
Author Organization [facility] Address [address] [facility] [address] [place] [id number] Care Team Providers Care Precision Machine Operator Name Role Phone April Ayala Primary Care Provider Allergies Allergen (clinical drug ingredient) Drug/Non Drug Allergy documented on EMR Reaction Allergy Type Onset Date Status amoxicillin Amoxicillin Unknown Drug Allergy Act ezio cephalexin Cephalexin Unknown Drug Allergy Activ e clindamycin Clindamycin Unknown Drug Allergy Act ezio Results Component Value Reference Range Notes Influenza Screen (in house) Reviewed date:07/29/2024 08:37:25 AM Interpretation:Negative Performing Lab: Notes/Report: Negative results neg CBC Fingerstick (in house) Reviewed date:07/29/2024 08:37:36 AM Interpretation: Performing Lab: Notes/Report: wbc 6.7 3.5 - 10 lym 21.7 15 - 50 mid 6.6 2 - 15 gran 71.7 35 - 80 rbc 4.40 3.5 - 5.5 hgb 13.0 11.5 - 16.5 hct 38.9 35 - 55 mcv 88.3 75 - 100 mch 29.6 25 - 35 mchc 33.5 31 - 38 plat 220 100 - 400 REASON FOR VISIT congestion Medications Medication SIG (Take, Route, Frequency, Duration) Notes Start Date End Date Status Flonase Allergy Relief 50 MCG/ACT 1 spray in each nostril Nasally Once a day for 30 day(s) 05/13/2023 Active Multivitamin - 1 tablet Orally Once a day for 30 day(s) Active Junel FE 06/13 1-20 MG-MCG 1 tab(s) orall y once a day Active Richa Allergy 180 MG 1 tablet Swallow whole with water; do not take with fruit juices. Orally Once a day for 30 day(s) Active Hioncoubi-Morakkoy-KN 30-2-1 0 MG/5ML 5-10 ml Orally 4 times a day, prn 07/28/2024 Active Rosuvastatin Calcium 10 MG 1 tablet Oral ly Once a day for 90 days Active Lisinopril 5 MG 1 tab(s) orally once a day for 90 days Active Escitalopram Oxalate 20 MG Take 1 tablet by mouth once daily for 90 Active Cyclobenzaprine HCl 5 MG 1 tablet Orally three times a day as needed Active Omeprazole 20 MG Take 1 capsule by [facility] once daily for 90 days Active Vital Signs Blood pressure systolic 122 mm Hg 07/29/19 25 Blood pressure diastolic 72 mm Hg 025 Heart Rate 80 /min 07/28/2024 Height 65.50 in 07/28/2024 Weight 190.6 lbs 07/28/2024 BMI 31.23 kg/m2 07/28/2024 Encounters Encounter Location Date Provider Diagnosis [facility] [address], [place] [id number] 07/28/2024 April Ayala Acute URI J06.9 Assessments Encounter Date Diagnosis (ICD Code) Assessment Notes Treatment Notes Treatment Clinical Notes Section Notes 07/28/2024 Acute URI (ICD-10 - J06.9) fluids, rest, supportive measures for fever/symptom relief Plan Of Treatment Medication Medication Name Sig Start Date Stop Date Notes Dyvbodwfc-Wcebvvgi-ZT 30-2-1 0 MG/5ML 5-10 ml Orally 4 times a day, prn 07/28/2024 Treatment Notes Assessment Notes Acute URI fluids, rest, suppor tive measures for fever/symptom relief Next Appt Details Follow Up: prn, Reason: Progress Notes * PATRICIA CHICASDOB:[birth year] (44 yo F)Acc No.[id number]:07/28/2024 Progress Notes Patient: JG CHOUICA Provider: MARIANA Knight :1980 A ge:44 Y S ex:Female Date:07/28/2024 Address:[address] [place] [address] [place], [id number] Subjective: * Chief Complaints: * 1 . Congestion. * HPI: E NT/respiratory: 44 year old female presents with c/o cough P t complains of dry without any sputum production cough for a couple days. Associated with bodyaches and nasal congestion. * ROS: D ERMATOLOGY: no R guy. n o H shweta. G ASTROENTEROLOGY: no N ausea. n o V omiting. U ROLOGY: no D ifficulty urinating. n o B lood in urine. * Medical History: H ypertension, Esophageal reflux, Interstitial cystitis - follows with urology, Allergic rhinitis, Endometrioma of right ovary with removal. * Surgical History: L [facility] -Removal of right ovary 07/2019. * Hospitalization/Major Diagno stic Procedure: D enies Past Hospitalization. * Family History: F ather: alive 65 [...] ome smoke detector use: yes. 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 * Medications: T aking Richa Allergy 180 [...] Take 1 tablet by mouth once daily , Medication List reviewed and reconciled with the patient * Allergies: C ephalexin, Amoxicillin, Clindamycin. Objective: * Vitals: W t:190.6, Temp:97.4, BP:122/72, HR:80, O2 Sat:98% on RA, Nurse:chantell, Ht: 65.50, BMI:31.23. * Examination: E NT/Respiratory: General Appearance: N AD. Ears: a uditory canals normal bilaterally, TM's WNL. Nose : turbinates red, congested. Sinuses : tender maxillary sinuses bilaterally. Oral cavity : erythema without exudate on pharynx, PND present. Neck : n o cervical lymphadenopathy. Heart : R RR, normal S1 S2, no murmurs. Lungs: c lear to auscultation bilaterally. Assessment: * Assessment: 1. Shara wild URI - J06.9 (Primary) Plan: * Treatment: Value Reference Range r esults neg * April Ayala 07/29/2024 8:3 7:20 AM > ?LAB: CBC Fingerstick (in house) (Collection Date & Time - 07/28/2024)* Value Reference Range w bc 6.7 3.5 - 10 * l ym 21.7 15 - 50 * m id 6.6 2 - 15 * g ran 71.7 35 - 80 * r bc 4.40 3.5 - 5.5 * h gb 13.0 11.5 - 16.5 * h ct 38.9 35 - 55 * m cv 88.3 75 - 100 * m ch 29.6 25 - 35 * m chc 33.5 31 - 38 * p lat 220 100 - 400 * April Ayala 07/29/2024 8:3 7:32 AM > Notes: fluids, rest, supportive measures for fever/symptom relief?? * Procedure Codes: 9 47[address] [place], [address] Flu Test- Nasal Swab, Modifiers: QW , 07468 CAPILLARY BLOOD DRAW, 50290 CBC WITH AUTO DIFF * Follow Up: p rn * Billing Information: * Visit Code: 71990 Office Visit, Est Pt., Level 3. * Procedure Codes: [address] [place]. [address] Flu Test- Nasal Swab. Modifiers: QW 54333 CAPILLARY BLOOD DRAW. 61743 CBC WITH AUTO DIFF. * Electronic signature of MARIANA Preciado on 11/14/2024 at 02:56 PM EDT Sign off status: Pending * Provider: MARIANA Knight Date: 0 07/28/2024 Generated for Pedro tovar/Alexander/eTjimsmitting on: 0 11/14/2024 02:56 PM EDT History and Physical Notes * HPI (History of Present Illness) Category Sub-Category Detail Notes Category Not es ENT/respiratory cough Pt complains of dry without any sputum production cough for a couple days. Associated with bodyaches and nasal congestion Examination Category Sub-Category Detail Notes Category Not es ENT/Respiratory Oral cavity : erythema without exudate on pharynx, PND present Sinuses : tender maxillary sin uses bilaterally Ears: auditory canals norm al bilaterally, TM's WNL Neck : no cervical lymphade nopathy Heart : RRR, normal S1 S2, n o murmurs Lungs: clear to auscultatio n bilaterally General Appearance: NAD Nose : turbinates red, eli ested
--- OUTSIDE RECORDS SUMMARY | 2024-08-16 09:45 | XMS_ITS ---
Author Organization [facility] Address [address] [facility] [address] [place] [id number] Care Team Providers Care Optoelectronic Technician Name Role Phone April Ayala Primary Care Provider Veronika Duran Joce Unavailable [phone] Allergies Allergen (clinical drug ingredient) Drug/Non Drug [...] Omeprazole 20 MG Take 1 capsule by [facility] once daily for 90 days Active Lisinopril 5 MG 1 tab(s) orally once a day for 90 days Active Escitalopram Oxalate 20 MG Take 1 tablet by mouth once daily for 90 Active Rosuvastatin Calcium 10 MG 1 tablet Oral ly Once a day for 90 days Active Richa Allergy 180 MG 1 tablet Swallow whole with water; do not take with fruit juices. Orally Once a day for 30 day(s) Active ALPRAZolam 0.5 MG 1 tablet Orally 1 ho ur before flying 08/16/2024 Active Multivitamin - 1 tablet Orally Once a day for 30 day(s) Active Junel FE 06/13 1-20 MG-MCG 1 tab(s) orall y once a day Active Flonase Allergy Relief 50 MCG/ACT 1 spray in each nostril Nasally Once a day for 30 day(s) 05/13/2023 Active Ciprofloxacin HCl 500 MG 1 tablet Orally Two times a day 08/16/2024 Active Diflucan 150 MG 1 tablet Orally once 08/16/2024 Active Problems Problem Type SNOMED Code ICD Code Onset Dates Problem Status W/U Status Risk Notes Problem Fear of flying (985726599) 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 :1980 A ge:44 Y S ex:Female Date:08/16/2024 Address:[address] [place], [place] [address] [id number] Pcp:April Ayala Subjective: * Chief Complaints: * 1 . Going on a trip wants something for anxiety. * HPI: H PI: 44 year old female presents with c/o Patient is here today for?Pt sts she is here today for anxiety medication. She is flying to [place] in a couple weeks and is requesting [...] right ovary with removal. * Surgical History: [facility] -Removal of right ovary 07/2019. * Family [...] ome smoke detector use: yes. 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 * Medications: T aking Richa Allergy [...] Temp: 97.9, BP: 120/60, HR: 83, Nurse: [facility], Ht: 65.50, BMI:30.81. * Examination: G eneral Examination: General Appearance: N AD. Abdomen: n o suprapubic tenderness, no CVA tenderness. [...] HG * Follow Up: p rn * Billing Information: * Visit Code: 91813 Office Visit, Est Pt., Level 3. * Procedure Codes: 54944 Urinalysis, no micro. 3074F SYST BP LT 130 MM HG. 3078F DIAST BP < 80 MM HG. * Electronic signature of Veronika Duran MD on 11/14/2024 at 02:56 PM EDT Sign off status: Pending * Provider: Veronika Duran M.D. Date: 0 08/16/2024 Generated for Pedro tovar/Alexander/Cortez on: 0 11/14/2024 02:56 PM EDT History [...]
--- OUTSIDE RECORDS SUMMARY | 2024-11-14 14:57 | XMS_ITS | Patient Health Record ---
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 Name Role Phone April Ayala Primary Care Provider [phone] Veronika Duran Joce Unavailable [phone] Allergies Allergen (clinical drug ingredient) Drug/Non Drug [...] 7.3 Performing Lab: Notes/Report: Test performed by [facility], [facility] [address] [place] [address] , [address], [place] [address] Santy Lee MD, Clinical Laboratory Science Professor CLIA: [id number] Erythrocyte Sedimentation Rate (ESR), Automated 31 <26 mm/hr Rheumatoid Factor 16.0 <14.1 IU/mL C-Reactive Protein (CRP) 0.73 <0.50 mg/dL Antinuclear Antibodies (JOSH) Screen, Reflex JOSH 9 Panel Negative Negative This test is perform ed by Multiplex Bead Immunoassay methodology. Antinuclear Antibodies (JOSH) Result Note SEE COMMENT For positive Autoantibodies, please refer to the interpretive chart here: [email or web address] CCP Antibodies 7.3 <0.5-3.0 U/mL P-T4 Free (thyroxine) Reviewed date:06/12/2024 10:07:14 PM Interpretation:Normal Performing Lab: Notes/Report: Test performed by [facility] [address] [place] [address] [address] C, [place] [address] Santy Lee MD, Clinical Laboratory Science Professor CLIA: [id number] Thyroxine Free (free T4) 1.06 0.86-1.76 ng/dL Influenza Screen (in house) Reviewed date:07/29/2024 08:37:25 [...] - 38 plat 220 100 - 400 Urinalysis - Inhouse Reviewed date:08/19/2024 11:22:18 AM Interpretation: Performing Lab: Notes/Report: Color/Clarity yellow/cloudy Leuk 1+ Nitrite neg Urobili 3.2 Protein neg pH 5.5 Blood 1+ Sp. Gr. 1.005 Ketone neg Bili neg Gluc neg P-Vitamin D 25-Hydroxy Reviewed date:02/03/2024 09:08:52 AM Interpretation: Performing Lab: Notes/Report: Test performed by [facility] [address] [place] [address] [address], [place] [address] Santy Lee MD, Clinical Laboratory Science Professor CLIA: [id number] Vitamin D 25-Hydroxy 32.5 30.0-100.0 ng/mL Interpretation of Vitamin D 25 OH: < 20 ng/mL - Deficiency 20 - 29 ng/mL - Insufficiency 30 - 100 ng/mL - Sufficiency > 100 ng/mL - Super-therapeutic- toxicity may occur above this level. Clinical correlation required. P-TSH reflex to FT4 Reviewed date:02/03/2024 09:08:52 AM Interpretation: Performing Lab: Notes/Report: Test performed by [facility], [address]ai Echeverria C, [place] [address] Santy Lee MD, Clinical Laboratory Science Professor CLIA: [id number] TSH reflex to FT4 1.60 0.43-5.25 mU/L P-Lipid Panel Reviewed date:02/03/2024 09:08:52 AM Interpretation: Performing Lab: Notes/Report: Test performed by [facility], [address] [place] [address] Santy Lee MD, Clinical Laboratory Science Professor CLIA: [id number] Cholesterol 219 <200 mg/dL Triglycerides 155 <150 mg/dL HDL Cholesterol 44 >39 mg/dL Cholesterol / HDL Ratio 4.98 0.00-4.44 Ratio Non-HDL Cholesterol 175 <130 mg/dL LDL Cholesterol (Calculation) 144 <130 mg/dL LDL Cholesterol Levels* Less than 100 mg/dL Optimal 100 to 129 mg/dL Near Optimal/ Above Optimal 130 to 159 mg/dL Borderline High 160 to 189 mg/dL High 190 mg/dL and above Very High * Categories as recommended by the 2004 ATPIII guidelines LDL/HDL Ratio 3.3 <3.3 Ratio LDL Cholesterol Patient History Test Date: 01/29/2024 LDL Results: 144 Units: mg/dL % Change: - P-Comprehensive Metabolic Pa trey (CMP) Reviewed date:02/03/2024 09:08:52 AM Interpretation: Performing Lab: Notes/Report: Test performed by [facility] [address] [place] [address] , [address], [place] [address] Santy Lee MD, Clinical Laboratory Science Professor CLIA: [id number] Sodium 139 135-145 mmol/L Potassium 4.5 3.5-5.3 mmol/L Chloride 104 97-108 mmol/L CO2 27 22-32 mmol/L Glucose 85 65-99 mg/dL BUN 8 6-20 mg/dL Creatinine 0.63 0.50-1.00 mg/dL Calcium 9.3 8.6-10.4 mg/dL eGFR by Creatinine 113 >59 mL/min/1.73m2 Protein 6.8 6.0-8.3 g/dL Albumin 4.1 3.5-5.3 g/dL Alkaline Phosphatase 71 35-121 IU/L ALT (SGPT) 7 <5-47 IU/L AST (SGOT) 12 <5-40 IU/L Bilirubin, Total 0.3 <0.2-1.2 mg/dL A/G Ratio 1.5 1.1-2.5 P-Vitamin B12 Reviewed date:02/03/2024 09:08:52 AM Interpretation: Performing Lab: Notes/Report: Test performed by [facility] [address] [place] [address] , [address], [place] [address] Santy Lee MD, Clinical Laboratory Science Professor CLIA: [id number] Vitamin B12 >2000 232-1245 pg/mL CBC Venipuncture (in house) Reviewed date:01/29/2024 12:59:45 PM Interpretation: Performing Lab: Notes/Report: wbc 5.4 3.5 - 10 lymph 29.6% 15 - 50 mid 5.9% 2 - 15 gran 64.5% 35 - 80 rbc 4.40 3.5 - 5.5 hgb 13.2 11.5 - 16.5 hct 39.2 35 - 55 mcv 89.1 75 - 100 mch 30.0 25 - 35 mchc 33.7 31 - 38 platlet 318 100 - 400 Reason For Referral Diagnosis 1 Plantar wart, right foot (B07.0) Referral Organization [facility] Referring Provider First Name April Referring Provider Last Name Lucy Referring Provider 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 Referred Provider Specialty Cardiovascul ar Disease General Notes April Ayala 06/08 9:51:12 AM > Pt needs to see cardiology at [facility], Celina Cook 06/08/2024 11:20:46 AM > faxed to [facility] Cardiology Referral Priority Routine Medications Medication SIG (Take, Route, Frequency, Duration) Notes Start Date End Date Status Ciprofloxacin HCl 500 MG 1 tablet Orally Two times a day 08/16/2024 Active Diflucan 150 MG 1 tablet Orally once 08/16/2024 Active Richa Allergy 180 MG 1 tablet Swallow whole with water; do not take with fruit juices. Orally Once a day for 30 day(s) Active Lisinopril 5 MG Take 1 tablet by ayaz once daily for 90 Active Cyclobenzaprine HCl 5 MG 1 tablet Orally three times a day as needed Active Escitalopram Oxalate 20 MG Take 1 tablet by mouth once daily for 90 Active ALPRAZolam 0.5 MG 1 tablet Orally 1 ho ur before flying 08/16/2024 Active Multivitamin - 1 tablet Orally Once a day for 30 day(s) Active Omeprazole 20 MG 1 capsule 1/2 to 1 h our before morning meal Orally Once a day for 90 days Active Junel FE 06/13 1-20 MG-MCG 1 tab(s) orall y once a day Active Flonase Allergy Relief 50 MCG/ACT 1 spray in each nostril Nasally Once a day for 30 day(s) 05/13/2023 Active Rosuvastatin Calcium 10 MG 1 tablet Oral ly Once a day for 90 days Active Immunizations Vaccine Route Administration Date Status Comme nts COVID 19 Pfizer Unknown 02/05/2021 Administered COVID 19 Pfizer Unknown 02/28/2021 Administered Problems Problem Type SNOMED Code ICD Code Onset Dates Problem Status W/U Status Risk Notes Problem Hyperlipidemia (33187279) Hyperlipidemia (E78.5) Active confirmed Problem 021511793 Depression with anxiety (F41.8) Active confirmed Problem Vitamin D deficiency (24082292) Vitamin D deficiency disease (E55.9) Active confirmed Problem 998633205 Mixed hyperlipidemia (E78.2) Active confirmed Problem Fear of flying (012776722) 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) Active confirmed Problem Allergic rhinitis (70195879) Allergic rhinitis, unspecified (J30.9) Active confirmed Problem 987874793 Panic attacks (F41.0) Active confirmed Problem 28671273121127220 Plantar wart, right foot (B07.0) Active confirmed Problem 23592176 Allergic rhiniti s (J30.9) Active confirmed Problem 052581345 Perimenopausal symptoms (N95.1) Active confirmed Problem 399678388 Intractable migraine without status migrainosus, unspecified migraine type (G43.919) Active confirmed Problem 19816294 Hypertension, unspecified type (I10) Active confirmed Problem 316559734 Gastroesophageal reflux disease, unspecified whether esophagitis present (K21.9) Active confirmed Problem 49259242 Allergic rhiniti s due to other allergic trigger, unspecified seasonality (J30.89) Active confirmed Problem 47038306 Irregular menstrual bleeding (N92.6) Active confirmed Vital Signs Heart Rate 83 /min 08/16/2024 Blood pressure diastolic 60 mm Hg 08/16/2024 Height 65.50 in 08/16/2024 Blood pressure systolic 120 mm Hg 08/16/2024 Weight 188 lbs 08/16/2024 BMI 30.81 kg/m2 08/16/2024 Encounters Encounter Location Date Provider Diagnosis [facility] [address] [facility] [address] [place] [id number] 12/04/2023 April Lucy [facility] J3 0.9 [facility] [address] [place] [id number] 01/27/2024 April Lucy [facility]3 0.9 [facility] [address] [place] [id number] 01/29/2024 April Lucy Plantar wart, right foot B07.0 ; Depression with anxiety F41.8 ; Mixed hyperlipidemia E78.2 ; Hypertension, unspecified type I10 ; Vitamin D deficiency disease E55.9 and Vitamin B 12 deficiency E53.8 [facility] [address] [place] [facility] [address] [place] [id number] 03/08/2024 April Dereckrenetta Allergic rhinitis du e to other allergic trigger, unspecified seasonality J30.89 [facility] [address] [place] [id number] 04/07/2024 April Crowdy Trapezius muscle spa sm M62.838 and Depression with anxiety F41.8 [facility] [address] [facility] [address] [place] [id number] 04/28/2024 April Crowdy Trapezius muscle spa sm M62.838 ; Depression with anxiety F41.8 and Perimenopausal symptoms N95.1 [facility] [address] [place] [facility] [address] [place] [id number] 06/08/2024 April Lucy Other fatigue R53.83 ; Polyarthralgia M25.50 ; Abnormal thyroid blood test R79.89 and Shortness of breath R06.02 [facility] [address] [place] [facility] [address] [place] [id number] 07/28/2024 April Lucy Acute URI J06.9 [facility] [address] [place] [id number] 08/16/2024 R Joce Duran UTI (lower urinary t ract infection) N39.0 and Fear of flying F40.243 [facility] [address] [place] [id number] 02/01/2024 April Ayala [facility] [address] [place], [place] [id number] 02/03/2024 April Ayala [facility] [address] [facility] [address] [place] [id number] 06/12/2024 April Ayala Assessments Encounter Date Diagnosis (ICD Code) Assessment Notes Treatment Notes Treatment Clinical Notes Section Notes 12/04/2023 Allergic rhinitis (ICD-10 - J30.9) 01/27/2024 Allergic rhinitis (ICD-10 - J30.9) 01/29/2024 Depression with anxiety (ICD-10 - F41.8) Patient has tried numerous medications and had reactions to many of them. She did do the genetic testing and had f/u with Linda Matthews. I will call Linda to discuss a favorable option based on her genetic testing. 01/29/2024 Plantar wart, right foot (ICD-10 - B07.0) 03/08/2024 Allergic rhinitis due to other allergic trigger, unspecified seasonality (ICD-10 - J30.89) 04/07/2024 Depression with anxiety (ICD-10 - F41.8) Patient has tried numerous medications and had reactions to many of them. I sent the vraylar at her last visit and she never got it filled because she was nervous to take another medication. She is willing to try it now and will need another rx sent. 04/07/2024 Trapezius muscle spasm (ICD-10 - M62.838) 04/28/2024 Depression with anxiety (ICD-10 - F41.8) Patient does not want to start any other medications at this time. 04/28/2024 Trapezius muscle spasm (ICD-10 - M62.838) Will continue physical therapy and muscle relaxants prn. 06/08/2024 Polyarthralgia (ICD-10 - M25.50) 06/08/2024 Other fatigue (ICD-10 - R53.83) The patient is concerned about her heart. She is very fatigued and has SOA. She has a strong family history of heart disease. Will make referral to cardiology. If labs are normal may need referral to endocrinology. 07/28/2024 Acute URI (ICD-10 - J06.9) fluids, rest, supportive measures for fever/symptom relief 08/16/2024 UTI (lower urinary tract infection) (ICD-10 - N39.0) 08/16/2024 Fear of flying (ICD-10 - F40.243) 06/08/2024 Abnormal thyroid blood test (ICD-10 - R79.89) 04/28/2024 Perimenopausal symptoms (ICD-10 - N95.1) I discussed going to see Dr. Gonzalez and having more testing done. Patient is agreeable. She will let me know when she is going to the labs so I can recheck some labs as well. 01/29/2024 Mixed hyperlipidemia (ICD-10 - E78.2) 01/29/2024 Hypertension, unspecified type (ICD-10 - I10) 06/08/2024 Shortness of breath (ICD-10 - R06.02) Will make cardiology referral. 01/29/2024 Vitamin D deficiency disease (ICD-10 - E55.9) 01/29/2024 Vitamin B 12 deficiency (ICD-10 - E53.8) Plan Of Treatment No Information Insurance Providers Payer Name Payer Address Payer Phone Subscriber Number Group Number Insured Name Patient Relationship to Insured Coverage Start Date Coverage End Date [facility] [id number] [place] [address] [id number] PATRICIA ROBIN Self - patient is the insured Medications Administered Medication Instructions Date of Administration Dosage Notes allergy 09/20/2015 0.30 mL allergy 09/20/2015 0.30 mL allergy 10/05/2015 0.35 mL allergy 10/05/2015 0.35 mL allergy 10/19/2015 0.35 mg allergy 10/19/2015 0.35 mg allergy 11/09/2015 0.35 mL allergy 11/09/2015 0.35 mL allergy 11/23/2015 0.40 mL allergy 11/23/2015 0.40 mL allergy 12/06/2015 0.35 mL allergy 12/06/2015 0.35 mL allergy 12/24/2015 .40 allergy 12/24/2015 .40 allergy 01/07/2016 0.15 mL allergy 01/07/2016 0.15 mL allergy 02/04/2016 0.20 mL allergy 02/04/2016 0.20 mL allergy 02/28/2016 0.20 mL allergy 02/28/2016 0.20 mL allergy 03/12/2016 0.25 mL allergy 03/12/2016 0.25 mL allergy 03/28/2016 0.30 mL allergy 03/28/2016 0.30 mL allergy 04/14/2016 .35 mL allergy 04/14/2016 .35 mL allergy 04/30/2016 0.40 mL allergy 04/30/2016 0.40 mL allergy 05/14/2016 0.35 mL allergy 05/14/2016 0.35 mL allergy 06/04/2016 0.15 mL allergy 06/04/2016 0.15 mL allergy 06/20/2016 0.20 mL allergy 06/20/2016 0.20 mL allergy 07/04/2016 0.25 mL allergy 07/04/2016 0.25 mL allergy 07/21/2016 0.30 mL allergy 07/21/2016 0.30 mL allergy 08/12/2016 0.35 mL allergy 08/12/2016 0.35 mL allergy 08/26/2016 0.35 mL allergy 08/26/2016 0.35 mL allergy 09/11/2016 0.35 mL allergy 09/11/2016 0.35 mL allergy 10/09/2016 0.15 mL allergy 10/09/2016 0.15 mL allergy 11/20/2016 0.15 mL allergy 11/20/2016 0.15 mL allergy 12/12/2016 0.15 mL allergy 12/12/2016 0.15 mL allergy 12/30/2016 0.15 mL allergy 12/30/2016 0.15 mL allergy 01/16/2017 0.15 mL allergy 01/16/2017 0.15 mL allergy 02/09/2017 0.30 mL allergy 02/09/2017 0.30 mL allergy 02/27/2017 0.15 mL allergy 02/27/2017 0.15 mL allergy 03/11/2017 0.20 mL allergy 03/11/2017 0.20 mL allergy 03/30/2017 0.25 mL allergy 03/30/2017 0.25 mL allergy 04/13/2017 0.30 mL allergy 04/13/2017 0.30 mL allergy 04/28/2017 0.30 mL allergy 04/28/2017 0.30 mL allergy 05/13/2017 0.35 mg allergy 05/13/2017 0.35 mg allergy 05/28/2017 0.35 mL allergy 05/28/2017 0.35 mL allergy 06/15/2017 0.15 mL allergy 06/15/2017 0.15 mL allergy 06/30/2017 0.20 mL allergy 06/30/2017 0.20 mL allergy 07/17/2017 0.25 mL allergy 07/17/2017 0.25 mL allergy 08/03/2017 0.30 mL allergy 08/03/2017 0.30 mL allergy 08/27/2017 allergy 08/27/2017 allergy 09/16/2017 0.35 mL allergy 09/16/2017 0.35 mL allergy 10/02/2017 0.35 ng allergy 10/02/2017 0.35 mL allergy 10/21/2017 0.35 mL allergy 10/21/2017 0.35 mL allergy 11/11/2017 0.35 mL allergy 11/11/2017 0.35 mL allergy 12/01/2017 0.35 mL allergy 12/01/2017 0.35 mL allergy 12/18/2017 0.15 vial 2 allergy 12/18/2017 0.15 vial 1 allergy 01/07/2018 0.15 mL allergy 01/07/2018 0.15 mL allergy 01/29/2018 0.25 mL allergy 01/29/2018 0.25 mL allergy 02/23/2018 0.25 mL allergy 02/23/2018 0.25 mL allergy 03/15/2018 0.30 mL given by MP allergy 03/15/2018 0.30 mL given by MP allergy 04/05/2018 0.35 mL allergy 04/05/2018 0.35 mL allergy 04/26/2018 0.35 mL allergy 04/26/2018 0.35 mL allergy 05/13/2018 0.15 mg allergy 05/13/2018 0.15 mg allergy 06/07/2018 0.20 mL allergy 06/07/2018 0.20 mL allergy 07/06/2018 0.25 mL allergy 07/06/2018 0.25 mL allergy 08/12/2018 0.30 mL allergy 08/12/2018 0.5 mL allergy 09/09/2018 0.35 mL allergy 09/09/2018 0.35 mL allergy 10/07/2018 0.35 mg allergy 10/07/2018 0.35 mg allergy 11/03/2018 0.15 mg allergy 11/03/2018 0.15 mg allergy 11/23/2018 0.20 mL allergy 11/23/2018 0.20 mL allergy 12/17/2018 0.25 allergy 12/17/2018 0.25 allergy 01/05/[address]Kari lee office in regards to how to give injections due to Pt. missing injections. allergy 01/05/[address]Kari lee office in regards to how to give injection due to Pt. missing injections. allergy 01/27/2019 0.20 mg allergy 01/27/2019 0.20 mg allergy 02/23/2019 allergy 02/23/2019 allergy 03/16/2019 0.35 allergy 03/16/2019 0.35 allergy 04/13/2019 0.15 allergy 04/13/2019 0.15 allergy 05/13/2019 0.20 mL allergy 05/13/2019 0.20 mL allergy 06/10/2019 0.25 mL allergy 06/10/2019 0.25 mL allergy 07/12/2019 0.30 allergy 07/12/2019 allergy 08/16/2019 0.35 mL allergy 08/16/2019 0.35 mL allergy 09/19/2019 allergy 09/19/2019 allergy 10/24/2019 0.15 mg allergy 10/24/2019 0.15 mg allergy 11/23/2019 0.20 mL allergy 11/23/2019 0.20 mL allergy 12/27/2019 0.25 mL allergy 12/27/2019 0.25 mL allergy 02/02/2020 0.30 mL allergy 02/02/2020 0.30 mL allergy 03/01/2020 0.15 mg allergy 03/01/2020 0.15 mg allergy 04/06/2020 0.2 mL allergy 04/06/2020 0.2 mL allergy 05/16/2020 0.25 mL allergy 05/16/2020 0.25 mL allergy 06/19/2020 0.30 mL allergy 06/19/2020 0.30 mL allergy 07/20/2020 0.35 mL allergy 07/20/2020 0.35 mL allergy 08/17/2020 0.15 mL allergy 08/17/2020 0.15 mL allergy 09/18/2020 0.25 mL allergy 09/18/2020 0.25 mL allergy 10/19/2020 0.2 mL allergy 10/19/2020 0.2 mL allergy 11/23/2020 0.20 mL allergy 11/23/2020 0.20 mL allergy 12/21/2020 0.25 mL allergy 12/21/2020 0.25 mL allergy 01/23/2021 0.33 mL allergy 01/23/2021 allergy 02/20/2021 0.15 mL allergy 02/20/2021 0.15 mL allergy 03/27/2021 0.5 mL allergy 03/27/2021 0.5 mL allergy 04/27/2021 0.5 mg allergy 04/27/2021 0.5 mg allergy 06/05/2021 0.50 mL Vial #1 SQ in R arm. Pt tolerated well allergy 06/05/2021 0.50 mL Vial # 2 SQ Le ft arm pt tolerated well allergy 07/22/2021 0.05 mL allergy 07/22/2021 0.05 mL allergy 08/28/2021 0.1 mL allergy 08/28/2021 0.1 mL allergy 10/15/2021 0.15 mL allergy 10/15/2021 0.15 mL allergy 11/21/2021 0.2 mL allergy 11/21/2021 0.2 mL allergy 12/30/2021 0.25 mL allergy 12/30/2021 0.25 mL allergy 02/03/2022 0.30 mL allergy 02/03/2022 0.30 mL allergy 03/13/2022 0.35 mL allergy 03/13/2022 0.35 mL allergy 04/25/2022 0.4 mL right arm allergy 04/25/2022 0.4 mL Left arm allergy 06/03/2022 .45 mL Right arm allergy 06/03/2022 .45 mL Left arm allergy 07/23/2022 0.05 mL allergy 07/23/2022 0.05 mL allergy 09/30/2022 0.1 mL allergy 09/30/2022 0.1 mL allergy 11/06/2022 0.10 mL allergy 11/06/2022 0.10 mL allergy 12/12/2022 allergy 12/12/2022 .15 allergy 01/22/2023 allergy 01/22/2023 allergy 02/16/2023 allergy 02/16/2023 allergy 03/30/2023 allergy 03/30/2023 allergy 05/22/2023 allergy 05/22/2023 allergy 06/23/2023 0.10 mL Right arm allergy 06/23/2023 0.10 mL Left arm allergy 08/04/2023 .15 mL Vial 1 right u pper arm allergy 08/04/2023 .15 mL Vial 2 left up per arm allergy 09/07/2023 allergy 09/07/2023 allergy 10/08/2023 allergy 10/08/2023 allergy 11/04/2023 0.20 mL Rt arm allergy 11/04/2023 0.20 mL Lt arm allergy 12/04/2023 Right arm allergy 12/04/2023 Left arm allergy 01/27/2024 .15 mL #2 RA allergy 01/27/2024 .15 mL #1 LA allergy 03/08/2024 0.2 mL allergy 03/08/2024 0.2 mL Medical (General) History Medical History History ICD Code hypertension Esophageal reflux interstitial cystitis - follows with uro logy allergic rhinitis Endometrioma of right ovary with removal Surgical History Surgery Date(Month/Year) [facility] -Removal of right ovary 07/2019
--- NOTE | 2024-11-14 15:00 | MM_ITS ---
PROCEDURE INFORMATION: Exam: MG Bilateral Screening 3D Mammography Exam date and time: 11/14/2024 3:09 PM Age: 44 years old Clinical indication: Screening examination; Additional info: Routine screening TECHNIQUE: Imaging protocol: Bilateral Screening tomosynthesis and 2D mammography including computer-aided detection (CAD) when performed. COMPARISON: 1. MG MM DIG SCREENING MAMM BI W/CAD 11/06/2023 9:47 AM 2. MG MM DIG SCREENING MAMM BI W/CAD 09/30/2022 12:53 PM FINDINGS: MAMMOGRAPHY: Breast composition: The breasts are heterogeneously dense, which may obscure small masses. Mass: None. Architectural distortion: None. Calcifications: No suspicious calcifications. Asymmetric density: None. Skin thickening: None. Axillary adenopathy: None. IMPRESSION: No mammographic evidence of malignancy. Annual screening is recommended unless otherwise clinically indicated. ASSESSMENT: BI-RADS Category 1: Negative.
== END 2024-11-14 23:59 | disposition home or self-care (01) ==
LOC: RAD 14:54
PROVIDERS: PCP Physician Assistant; Visit Provider Obstetrics & Gynecology
DX: Z12.31 Encounter for screening mammogram for malignant neoplasm of breast (principal); R92.333 Mammographic heterogeneous density, bilateral breasts
CPT/HCPCS: 77063; 77067

== ENCOUNTER → 2024-12-15 14:06 | Outpatient (CLI) | payer BC, SELFPAY ==
--- OUTSIDE RECORDS SUMMARY | 2024-08-16 09:45 | XMS_ITS ---
Author [facility] Address [address] [facility] [address] [place] [id number] Care Team Providers Care Senior Sales Administrator Name Role Phone April Ayala Primary Care Provider Veronika Duran Joce Unavailable [phone] Allergies Allergen (clinical drug ingredient) Drug/Non Drug Allergy documented on EMR Reaction Allergy Type Onset Date Status amoxicillin Amoxicillin Unknown Drug Allergy Act ezio cephalexin Cephalexin Unknown Drug Allergy Activ e clindamycin Clindamycin Unknown Drug Allergy Act ezio Results Component Value Reference Range Notes Urinalysis - Inhouse Reviewed date:08/19/2024 11:22:18 AM Interpretation: Performing Lab: Notes/Report: Color/Clarity yellow/cloudy Leuk 1+ Nitrite neg Urobili 3.2 Protein neg pH 5.5 Blood 1+ Sp. Gr. 1.005 Ketone neg Bili neg Gluc neg REASON FOR VISIT going on a trip wants something for anxiety Medications Medication SIG (Take, Route, Frequency, Duration) Notes Start Date End Date Status Cyclobenzaprine HCl 5 MG 1 tablet Orally three times a day as needed Active Omeprazole 20 MG Take 1 capsule by [facility] once daily; Duration: 90 days Active Lisinopril 5 MG 1 tab(s) orally once a day; Duration: 90 days Active Escitalopram Oxalate 20 MG Take 1 tablet by mouth once daily; Duration: 90 Active Rosuvastatin Calcium 10 MG 1 tablet Oral ly Once a day; Duration: 90 days Active Richa Allergy 180 MG 1 tablet Swallow whole with water; do not take with fruit juices. 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 Vital Signs Weight 188 lbs 08/16/2024 Blood pressure systolic 120 mm Hg 08/17/19 Blood pressure diastolic 60 mm Hg 025 Heart Rate 83 /min 08/16/2024 Height 65.50 in 08/16/2024 BMI 30.81 kg/m2 08/16/2024 Encounters Encounter Location Date Provider Diagnosis [facility] [address] [facility] [address] [place], [place] [id number] 08/16/2024 Veronika Duran UTI (lower urinary tract infection) N39.0 and Fear of flying F40.243 Assessments Encounter Date Diagnosis (ICD Code) Assessment Notes Treatment Notes Treatment Clinical Notes Section Notes 08/16/2024 UTI (lower urinary tract infection) (ICD-10 - N39.0) 08/16/2024 Fear of flying (ICD-10 - F40.243) Plan Of Treatment Medication Medication Name Sig Start Date Stop Date Notes ALPRAZolam 0.5 MG 1 tablet Orally 1 ho ur before flying 08/16/2024 Ciprofloxacin HCl 500 MG 1 tablet Orally Two times a day 0 08/16/2024 Diflucan 150 MG 1 tablet Orally once 08/16/2024 Next Appt Details Follow Up: prn, Reason: Progress Notes * PATRICIA CHICASDOB:[birth year] (44 yo F)Acc No.[id number]:08/16/2024 Progress Notes Patient: Arlen PATRICIA MILTON Provider: Veronika Duran M.D. :1980 A ge:44 Y S ex:Female Date:08/16/2024 Address:[address] [place], [place] [id number] Pcp:April Ayala Subjective: * Chief Complaints: * 1 . Going on a trip wants something for anxiety. * HPI: H PI: 44 year old female presents with c/o Patient is here today for?Pt sts she is here today for anxiety medication. She is flying to [place] in a couple weeks and is requesting medication to take prior to flying. She has used Xanax for this purpose in the past.. U rology: c/o frequent urination. c/o burning sensation P t sts 3-4 days ago she started with a lot of burning and pressure while urinating and would like to be tested for a uti today as well. c/o Pressure. * ROS: D ERMATOLOGY: no R guy. n o H shweta. G ASTROENTEROLOGY: no N ausea. n o V omiting. U ROLOGY: no D ifficulty urinating. n o B lood in urine. * Medical History: H ypertension, Esophageal reflux, Interstitial cystitis - follows with urology, Allergic rhinitis, Endometrioma of right ovary with removal. * Surgical History: [facility] -Removal of right ovary 07/2019. * Family [...] ome smoke detector use: yes. 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 * Medications: T aking Richa Allergy 180 [...] ephalexin, Amoxicillin, Clindamycin. Objective: * Vitals: W t: 188, Temp: 97.9, BP: 120/60, HR: 83, Nurse: gorge, Ht: 65.50, BMI:30.81. * Examination: G eneral Examination: General Appearance: N AD. A bdomen: n o suprapubic tenderness, no CVA tenderness. Assessment: * Assessment: 1. U TI (lower urinary tract infection) - N39.0 (Primary) 2 . 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 F ear of flying Start ALPRAZolam Tablet, 0.5 MG, 1 tablet, Orally, 1 hour before flying, 4. * Labs: * L ab: Urinalysis - Inhouse (Collection Date & Time - 08/16/2024) Value Reference Range C olor/Clarity yellow/cloudy * L euk 1+ * N itrite neg * U robili 3.2 * P rotein neg * p H 5.5 * B lood 1+ * S p. Gr. 1.005 * K etone neg * B cristobal neg * G jeremie neg * Marielos Crespo 08/16/2024 01:4 6:11 PM > Provider reviewed results while patient in office. * Procedure Codes: 8 1002 Urinalysis, no micro, 3074F SYST BP LT 130 MM HG, 3078F DIAST BP < 80 MM HG * Follow Up: p rn * Images: Billing Information: * Visit Code: 31251 Office Visit, Est Pt., Level 3. * Procedure Codes: 55450 Urinalysis, no micro. 3074F SYST BP LT 130 MM HG. 3078F DIAST BP < 80 MM HG. * Electronic signature of Veronika Duran MD on 12/15/2024 at 02:12 PM EDT Sign off status: Pending * Provider: Veronika Duran M.D. Date: 08/16/2024 Generated for Pedro tovar/Alexander/Daljititting on: 0 12/15/2024 02:12 PM EDT History and Physical Notes * HPI (History of Present Illness) Category Sub-Category Detail Notes Category Not es Urology frequent urination burning sensation Pt sts 3-4 days ago she started with a lot of burning and pressure while urinating and would like to be tested for a uti today as well Pressure HPI Patient is here today for Pt sts she is here today for anxiety medication. She is flying to [place] in a couple weeks and is requesting medication to take prior to flying. She has used Xanax for this purpose in the past. Examination Category Sub-Category Detail Notes Category Not es General Examination Abdomen: no suprapubi c tenderness, no CVA tenderness General Appearance: NAD
--- OUTSIDE RECORDS SUMMARY | 2024-11-18 10:00 | XMS_ITS ---
Author Organization [facility] Address [address] [facility] [address] [place] [phone] Care Team Providers Care Slurry Control Tender Name Role Phone April Ayala Primary Care [...] Interpretation: Performing Lab: Notes/Report: Test performed by [facility] [address] [place] [address] , [address], [place] [address] Santy Lee MD, Jigsawyer CLIA: [id number] Specimen Source Urine - Void Culture, Urine [...] 11/18/2024 Encounters Encounter Location Date Provider Diagnosis [facility] [address] [facility] [address] [place], [place] [phone] 11/18/2024 April Ayala Dysuria R30.0 Assessments Encounter [...] * PATRICIA CHICASDOB:[birth year] (44 yo F)Acc No.[id number]:11/18/2024 Progress Notes Patient: PATRICIA CHOU Provider: MARIANA Knight :1980 A ge:44 Y S ex:Female Date:11/18/2024 Address:[address] [place] [address] FARHANA Guerrero [id number] Subjective: * Chief Complaints: * 1 . [...] right ovary with removal. * Surgical History: [facility] -Removal of right ovary 07/2019. * [...] ome smoke detector use: yes. 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 * Medications: T aking methylPREDNISolone 4 MG [...] * Images: Billing Information: * Visit Code: 05861 Office Visit, Est Pt., Level 3. * Procedure Codes: 48299 Urinalysis, no micro. 1036F TOBACCO NON-USER. G8783 BP SCR PRFRM RCMDD DEFIND SCR INTVL. G8752 MOST RECENT SYSTOLIC BP < 140MM HG. G8754 MOST RECENT DIASTOLIC BP < 90MM HG. * Electronic signature of MARIANA Preciado on 12/15/2024 at 02:13 PM EDT Sign off status: Pending * Provider: MARIANA Knight Date: 0 11/18/2024 Generated for Pedro tovar/Alexander/eTransmitting on: 0 12/15/2024 02:13 PM EDT History and Physical Notes * [...]
--- OUTSIDE RECORDS SUMMARY | 2024-12-08 10:00 | XMS_ITS ---
Author Organization [facility] Address [address] [facility] [address] [place] [phone] Care Team Providers Care Assembly Line Driver Name Role Phone April Ayala Primary Care Provider Allergies Allergen (clinical drug ingredient) Drug/Non Drug Allergy documented on EMR Reaction Allergy Type Onset Date Status amoxicillin Amoxicillin Unknown Drug Allergy Act ezio cephalexin Cephalexin Unknown Drug Allergy Activ e clindamycin Clindamycin Unknown Drug Allergy Act ezio Results Component Value Reference Range Notes Urinalysis - Inhouse Reviewed date:12/09/2024 12:56:13 PM Interpretation: Performing Lab: Notes/Report: Color/Clarity yellow/cloudy Leuk 1+ Nitrite neg Urobili 1.6 Protein neg pH 6.0 Blood trace-intact Sp. Gr. 1.020` Ketone neg Bili neg Gluc neg P-Culture, Urine Reviewed date:12/13/2024 02:42:02 PM Interpretation:No growth Performing Lab: Notes/Report: Test performed by [facility] [address] [place] [address] , [address], [place] [address] Santy Lee MD, Marine Animal Trainer CLIA: [id number] Specimen Source Urine - Void Culture, Urine See Below Final Report : No growth REASON FOR VISIT poss bladder infection Medications Medication SIG (Take, Route, Frequency, Duration) Notes Start Date End Date Status ALPRAZolam 0.5 MG 1 tablet Orally 1 ho ur before flying 08/16/2024 Active Diflucan 150 MG 1 tablet Orally once 08/16/2024 Active Escitalopram Oxalate 20 MG Take 1 tablet by mouth once daily; Duration: 90 Active Lisinopril 5 MG Take 1 tablet by ayaz once daily; Duration: 90 Active Omeprazole 20 MG 1 capsule 1/2 to 1 h our before morning meal Orally Once a day; Duration: 90 days Active Cyclobenzaprine HCl 5 MG 1 tablet Orally three times a day as needed Active Rosuvastatin Calcium 10 MG 1 tablet Oral ly Once a day; Duration: 90 days Active Junel FE 06/13 1-20 MG-MCG 1 tab(s) orall y once a day Active Multivitamin - 1 tablet Orally Once a day; Duration: 30 day(s) Active Flonase Allergy Relief 50 MCG/ACT 1 spray in each nostril Nasally Once a day; Duration: 30 day(s) 05/13/2023 Active Richa Allergy 180 MG 1 tablet Swallow whole with water; do not take with fruit juices. Orally Once a day; Duration: 30 day(s) Active Cipro 250 MG 1 tablet Orally ever y 12 hrs; Duration: 7 days 12/08/2024 Active Vital Signs Weight 191 lbs 12/08/2024 Blood pressure systolic 124 mm Hg 12/09/19 25 Blood pressure diastolic 70 mm Hg 025 Heart Rate 81 /min 12/08/2024 Height 65.50 in 12/08/2024 BMI 31.3 kg/m2 12/08/2024 Encounters Encounter Location Date Provider Diagnosis [facility] [facility] [address] [phone] 12/08/2024 April Ayala UTI (lower urinary tract infection) N39.0 Assessments Encounter Date Diagnosis (ICD Code) Assessment Notes Treatment Notes Treatment Clinical Notes Section Notes 12/08/2024 UTI (lower urinary tract infection) (ICD-10 - N39.0) Plan Of Treatment Medication Medication Name Sig Start Date Stop Date Notes Cipro 250 MG 1 tablet Orally ever y 12 hrs; Duration: 7 days 12/08/2024 Next Appt Details Follow Up: via phone to repo rt test results, Reason: Progress Notes * PATRICIA CHICASDOB:[birth year] (44 yo F)Acc No.[id number]:12/08/2024 Progress Notes Patient: Arlen MILTON PATRICIA Provider: MARIANA Knight :1980 A ge:44 Y S ex:Female Date:12/08/2024 Address:[place] [id number] Subjective: * Chief Complaints: * 1 . Poss bladder infection. * HPI: U rology: Pt here today for c/o of bladder infection Pt states that she had a UTI 3 weeks ago and she was here and it got a little better but now its off and on. 44 year old female presents with c/o frequent urination. c/o burning sensation P t states she burning all the time. c/o flank pain b ilateral.? Denies : hematuria. * ROS: D ERMATOLOGY: no R guy. n o H shweta. G ASTROENTEROLOGY: no N ausea. n o V omiting. n o D iarrhea.? U ROLOGY: no D ifficulty urinating. n o B lood in urine. * Medical History: H ypertension, Esophageal reflux, Interstitial cystitis - follows with urology, Allergic rhinitis, Endometrioma of right ovary with removal. * Surgical History: [facility] -Removal of right ovary 07/2019. * [...] ome smoke detector use: yes. 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 * Medications: T aking Richa Allergy 180 [...] times a day as needed , Taking Diflucan 150 MG Tablet 1 [...] Amoxicillin, Clindamycin. Objective: * Vitals: W t: 191, Temp: 97.4, BP: 124/70, HR: 81, Nurse: pe, Ht: 65.50, BMI:31.3. * Examination: G eneral Examination: General Appearance: N AD. C hest: n ormal shape and expansion. H eart: R SR. L ungs: c lear to auscultation. A bdomen: b owel sounds present, soft, nontender. B ack: n o CVA tenderness. Assessment: * Assessment: 1. U TI (lower urinary tract infection) - N39.0 (Primary) Plan: * Treatment: Value Reference Range C ulture, Urine See Below - * S pecimen Source Urine - Void - * April Ayala 12/13/2024 0 1:49:15 PM EDT >Please let patient know there was no growth, if she is feeling better, should finish Spring Suárez 12/13/2024 02:41:36 PM EDT > pt informed ?LAB: Urinalysis - Inhouse (Collection Date & Time - 12/08/2024)* Value Reference Range C olor/Clarity yellow/cloudy * L euk 1+ * N itrite neg * U robili 1.6 * P rotein neg * p H 6.0 * B lood trace-intact * S p. Gr. 1.020` * K etone neg * B cristobal neg * G jeremie neg * Marielos Crespo 12/08/2024 02:0 8:24 PM EDT > Provider reviewed results while patient in office.Spring Patel 12/09/2024 12:56:06 PM EDT > culture ordered * Procedure Codes: 8 1002 Urinalysis, no micro * Follow Up: v ia phone to report test results * Images: Billing Information: * Visit Code: 68281 Office Visit, Est Pt., Level 3. * Procedure Codes: 67938 Urinalysis, no micro. * Electronic signature of MARIANA Preciado on 12/15/2024 at 02:12 PM EDT Sign off status: Pending * Provider: MARIANA Knight Date: 12/08/2024 Generated for Pedro tovar/Alexander/eTransmitting on: 12/15/2024 02:12 PM EDT History and Physical Notes * HPI (History of Present Illness) Category Sub-Category Detail Notes Category Not es Urology frequent urination burning sensation Pt states she burnin g all the time flank pain bilateral hematuria Examination Category Sub-Category Detail Notes Category Not es General Examination Heart: RSR Lungs: clear to auscultatio n Abdomen: bowel sounds present , soft, nontender General Appearance: NAD Back: no CVA tenderness Chest: normal shape and exp ansion
--- OUTSIDE RECORDS SUMMARY | 2024-12-15 14:13 | XMS_ITS | Data Portability ---
Author Organization [facility] ALEXANDREA Clay LOVELAND CLOSED Address [address] [address] [place] [address] Care Team Providers Care Coremaker Machine Name Role Phone REAVESARSLAN Primary Care Provider [phone] Assessment Encounter Date Assessment Date Assessment LastModified by Organization Details LastModified Time 05/12/2019 05/12/2019 Urine for culture and sensitivity. Pyridium for dysuria. Continue current treatment for interstitial cystitis with medications and dietary modifications. [email or web address] Not available 05/15/2019 15:06:11 06/20/2022 06/20/2022 patient called and rescheduled to [facility] on 08/29/22 [email or web address] Not available 06/23/2022 08:29:57 Plan of Treatment Reminders Order Date Submit Date Provider Last Modified By Organization Details Last Modified Time Details Appointments None recorded. Lab cytology, vaginal/ce rvical 2020 021 [facility], [address] [place] [address], [phone], 09:35:48 HPV DNA, high-risk 2020 021 [facility], [facility] [place], [address], 16:10:43 urinalysis , dipstick, auto 2018 019 [email or web address] 14 [facility] [place] [facility], [address] [place] [address] Dr Han, [place], [address], 9 16:44:26 culture, urine 2018 019 [facility], [address] [place] [address], [address], 9 14:46:54 Referral physical therapist referral 2019 020 [email or web address] Nga Bishop PT, [address] [place], [address], 0 14:22:41 Procedures None recorded. Surgeries None recorded. Imaging MAMMO, screening, tomosynthe sis, bilateral, w/ CAD 2020 021 [facility], [address] [place] [address], [address], 11:40:10 Medication Orders Diflucan 150 mg tablet 2020 021 [facility], [address], [place], [address], 09:23:58 Junel Fe 24 1 mg-20 mcg (24)/75 mg (4) tablet 2020 021 [facility] #[id number], [address], [id number], 2 11:35:38 Bhavani 0.35 mg tablet 2019 020 [email or web address] [id number], [address], [id number], 1 16:13:33 Junel Fe 24 1 mg-20 mcg (24)/75 mg (4) tablet 2019 020 [facility] #[id number], [address], [id number], 2 11:35:38 Pyridium 200 mg tablet 2018 019 [email or web address] [facility] #[id number], [address] [facility] [address] Far[address], [id number], 0 13:42:27 Patient TargetsNo targets recorded. Patient Instructions Encounter Date Encounter Id Patient Instructions Last Modified By Organization Details Last Modified Time 05/12/2019 [id number] Urinary Tract Infection (UTI) in Women: Care Instructions [email or web address] Not available 05/12/2019 16:44:26 painful urinatio n (dysuria): care instructions [email or web address] Not available 05/12/2019 16:39:19 Bladder Pain Syndrome (BPS): Care Instructions [email or web address] Not available 05/15/2019 15:06:11 12/05/2019 [id number] Bladder Pain Syndrome (BPS): Care Instructions [email or web address] Not available 12/05/2019 14:30:28 vaginismus: care instructions [email or web address] Not available 12/05/2019 14:28:37 03/29/2020 [id number] vaginismus: care instructions [email or web address] Not available 03/29/2020 11:34:47 Reason for Referral Physical Therapist Referral for Vaginospasm Referring Physician: Layne Pierce, Gynecology, Encounter Date: 12/05/2019 Results Created Date Observation Date Name Description Value Unit Range Abnormal Flag Note LastModifiedBy Organization Detail LastModifiedTime 05/12/2005/12/2019 urina lysis , dipst ick, auto Unknown Analyte Claudia Not Available [facility] [place] [facility] With [address] [place], [address], 05/12/2019 13:48:30 05/12/20 19 05/12/2019 urina lysis , dipst ick, auto Unknown Analyte Clear Not Available [facility] [address] [place], [address], 05/12/2019 13:48:30 05/12/20 19 05/12/2019 urina lysis , dipst ick, auto Unknown Analyte 1.010 Not Available [facility] Services With [address] Han, [place], [address], 05/12/2019 13:48:30 05/12/20 19 05/12/2019 urina lysis , dipst ick, auto Unknown Analyte 1.003 - 1.035 Not Available [facility] With [address] [place], [address], 05/12/2019 13:48:30 05/12/20 19 05/12/2019 urina lysis , dipst ick, auto Unknown Analyte 5.0 Not Available [facility] With [address] [place], [address], 05/12/2019 13:48:30 05/12/20 19 05/12/2019 urina lysis , dipst ick, auto Unknown Analyte 5.0 - 8.0 Not Available [facility] With [address] [place], [address], 05/12/2019 13:48:30 05/12/20 19 05/12/2019 urina lysis , dipst ick, auto Unknown Analyte 500 Rupert/ul (++) Not Available [facility] With [address] [place], [address], 05/12/2019 13:48:30 05/12/20 19 05/12/2019 urina lysis , dipst ick, auto Unknown Analyte Negati ve Not Available [facility] With [address] [place], [address], 05/12/2019 13:48:30 05/12/20 19 05/12/2019 urina lysis , dipst ick, auto Unknown Analyte Negati ve Not Available [facility] With [address] [place], [address], 05/12/2019 13:48:30 05/12/2005/12/2019 urina lysis , dipst ick, auto Unknown Analyte Negati ve Not Available [facility] With [address] [place], [address], 05/12/2019 13:48:30 05/12/2005/12/2019 urina lysis , dipst ick, auto Unknown Analyte Trace Not Available [facility] With [address] [place], [address], 05/12/2019 13:48:30 05/12/20 19 05/12/2019 urina lysis , dipst ick, auto Unknown Analyte Negati ve - Trace Not Available [facility] With [address] [place], [address], 05/12/2019 13:48:30 05/12/20 19 05/12/2019 urina lysis , dipst ick, auto Unknown Analyte Normal Not Available [facility] With [address] [place], [address], 05/12/2019 13:48:30 05/12/2005/12/2019 urina lysis , dipst ick, auto Unknown Analyte Normal Not Available [facility] With [address] [place], [address], 05/12/2019 13:48:30 05/12/20 19 05/12/2019 urina lysis , dipst ick, auto Unknown Analyte Negati ve Not Available [facility] With [address] [place], [address], 05/12/2019 13:48:30 05/12/20 19 05/12/2019 urina lysis , dipst ick, auto Unknown Analyte Negati ve Not Available [facility] With [address] [place], [address], 05/12/2019 13:48:30 05/12/2005/12/2019 urina lysis , dipst ick, auto Unknown Analyte Normal Not Available [facility] With [address] [place], [address], 05/12/2019 13:48:30 05/12/2005/12/2019 urina lysis , dipst ick, auto Unknown Analyte Normal - 1mg/dl Not Available [facility] With [address] [place], [address], 05/12/2019 13:48:30 05/12/20 19 05/12/2019 urina lysis , dipst ick, auto Unknown Analyte Negati ve Not Available [facility] With [address] [place], [address], 05/12/2019 13:48:30 05/12/20 19 05/12/2019 urina lysis , dipst ick, auto Unknown Analyte Negati ve Not Available [facility] With [address] [place], [address], 05/12/2019 13:48:30 05/12/2005/12/2019 urina lysis , dipst ick, auto Unknown Analyte 50 Osbaldo/ul Not Available [facility] With [address] [place], [address], 05/12/2019 13:48:30 05/12/20 19 05/12/2019 urina lysis , dipst ick, auto Unknown Analyte Negati ve Not Available [facility] [place] [facility] With [address], [place], [address], 05/12/2019 13:48:30 05/12/20 19 05/12/2019 urina lysis , dipst ick, auto Unknown Analyte Clean Catch Not Available [facility] [place] [facility] With [address], [place], [address], 05/12/2019 13:48:30 05/12/20 19 05/12/2019 urina lysis , dipst ick, auto Unknown Analyte Automa razia Not Available [facility] With [address], [place], [address], 05/12/2019 13:48:30 05/12/20 19 05/12/2019 cultu re, urine results [facility] e: CCUR Colle cted: 05/12 13:51 Site: Recei cheryl : 05/12 20:14 URINE SCREE N(CUL TURE) FINAL 05/16 10:43 05/16 No signi fican t growt h. Not Available [facility] [address] [place] [address], [address], 05/16/2019 10:44:02 07/13/19 20 07/13/2019 ca 125, serum Ca 125 81.9 U/mL 0.0-34 .0 high This test was perfo rmed using the Farzana E170 elect farzana milum inesc ent metho d. Value s obtai flip from diffe rent assay metho ds canno t be used inter estrada eably . CA 125 level s, regar dless of value , shoul d not be inter prete d as absol comanche evide nce of the prese nce or absen ce of disea se. Not Available [facility] [address] [place] [address], [address], 07/13/2019 11:52:30 04/02/20 21 04/04/2021 HPV, HIGH RISK high risk HPV Detect ed not detect ed abnormal Metho dolog y: Trans cript ion-M ediat ed Ampli ficat ion This assay detec ts E6/E7 viral messe nger RNA (mRNA ) from 14 high- risk HPV types (16,1 8,31, 33,35 ,39,4 5,51, 52,56 ,58,5 9,66, 68). The j luis tical perfo rmanc e diane cteri stics of this assay have been deter mined by [employer] [facility]. The modif icati ons have not been clear ed or appro cheryl by the FDA. This assay has been valid ated pursu ant to the CLIA regul ation s and is used for clini miguel angel purpo ses. For addit ional infor bianca shankar e refer to http: //[facility] oliveira.que stdia gnost ics.c om/fa q/FAQ 129v1 (This link if provi ded for infor aditi oliveira/ educa juliann l purpo ses only. ) TEST PERFO RMED AT: [facility] [address] [address] ANTIONE Maharaj MD Not Available [facility] [address] [place], [address], 04/04/2021 16:10:43 04/02/20 21 04/02/2021 PAP SMEAR Pap smear SEE BELOW Depar tment of Patho logy GYNEC OLOGI MIGUEL ANGEL CYTOL OGY REPOR T NAME: JOLEEN EUCEDA PATHO LOGY NO.: [id number] Copy to: SOURC E OF SPECI MEN: CERVI MIGUEL ANGEL/E NDOCE RVICA L-THI N PREP RELEV ANT HISTO RY: No LMP given . Menop ause: Y Comme nt: HPV CO-TE STING REPEA T IN 3 YRS IF DIDI L SPECI MEN ADEQU ACY SATIS FACTO RY FOR EVALU ATION . ENDOC ERVIC AL/TR ANSFO RMATI ON ZONE COMPO NENT PRESE NT PARTI ALLY OBSCU RING INFLA MMATI ON GENER AL CATEG ORIZA TION NEGAT CARROLL FOR INTRA EPITH ELIAL LESIO N OR MALIG CALE RELAT ED LABOR ATORY RESUL TS Test Name Resul t Colle cted D and T HIGH RISK HPV Detec razia 2020 9:35 THIERNO A L DINGE SS, CT (ASCP ) Erinn d Out Date: 04/05 09:34 Cervi miguel angel/v agina l cytol ogy is a scree prema test with a recog nized false negat carroll rate. New techn ologi es may decre ase, but will not elimi yoselin false negat carroll resul ts. Regul ar cytol ogy scree prema is recom carolynn d to minim ize false negat carroll resul ts. The ThinP rep(R ) Imagi ng syste m is used to vineet t in prima ry cervi miguel angel cance r scree prema of ThinP rep(R ) Pap test slide s. Page 1 of 1 Not Available [facility] [address] [place] [address], [address], 04/05/2021 09:35:47 07/04/19 20 07/04/2019 US, trans vagin al [facility] [address] [place] [address] Gustavo henriquez Name: DAGOBERTO henriquez : [address] Patikathryn henriquez Orderi ng Provid er: JULITOCUBA SMITH G EXAM DATE: 2019 EXAM: US PELVIS TRANSACTIONAL PARALEGAL TRANSV AGINAL CLINIC AL INFORM ATION: Follow -up cystic struct ure in the left ovary. TECHNI QUE: Multip le sonogr aphic images of the pelvis were obtain ed throug h transv aginal route. COMPAR ERLINDA: None. FINDIN GS: UTERUS : Size = 8 x 4 x 3.5 cm. EMS thickn ess = 10 mm. Anteve rted, antefl exed, normal in size. No myomet rial abnorm ality seen. RIGHT ADNEXA : Ovary size = 2.9 x 3.4 x 2.3 cm. Normal in size and appear ance. There is a 2.3 cm diamet er physio logic follic le in the right ovary. No adnexa l mass. LEFT ADNEXA : Ovary size = 4.6 x 4.6 x 3.7 cm. The ovary is enlarg ed due to the presen ce of the previo usly seen comple x cystic struct ure. On today' s examin ation, it measur es 4 x 3.7 x 3.6 cm. The measur ement is somewh at larger as compar ed to the previo us examin ation. CUL-DE -SAC: No fluid or mass IMPRES TREMAYNE: 1. The cyst in the left adnexa has not decrea sed in size. It measur es somewh at larger . The comple xity has also increa sed. Theref ore furthe r evalua tion with MR pelvis with and withou t contra st is recomm ended. 2. Physio logic follic le in the right ovary. No clinic al signif icance . 3. No other signif icant abnorm ality is seen. Interp reted By: Jesus Clay MD Electr onical ly Signed By: Jesus Clay MD on 020 12:51 PM [facility] [address], [address], 07/11/2019 12:39:21 07/13/19 20 07/13/2019 MRI, pelvi s, w/wo contr ast [address] [address] Gustavo henriquez Name: DAGOBERTO henriquez : [address] Patikathryn t Orderi ng Provid er: LISA CORONA EXAM DATE: 2019 EXAM: MR PELVIS W/WO CONTRA ST CLINIC AL INFORM ATION: The patien t did not requir e sedati on for this exam. TECHNI QUE: Multip le multia xial MR images of the pelvis were obtain ed in T1 and T2 weight ed sequen dianne before and in T1 weight ed sequen dianne after inject ion of 7.5 mL (1 x 7.5 mL bottle of NDC 61774- 325-01 ) IV. COMPAR ERLINDA: None. FINDIN GS: UTERUS : Size = 6.4 x 2.1 x 2.9 cm. EMS thickn ess = 7.8 mm. Partia l bicorn uate uterus . Anteve rted, antefl exed, normal in size. The juncti onal zone is normal in thickn ess. No myomet rial abnorm ality seen. RIGHT ADNEXA : Right ovary is normal in size and appear ance. No adnexa l mass. LEFT ADNEXA : There is a 3.3 x 3.6 cm mass involv ing the left adnexa likely arisin g from the ovary. This is T1 hyperi ntense with hypoin tense areas along the inferi or aspect . This is interm ediate signal intens ity on T2. This is most in keepin g with ovaria n dermoi d cyst or mature terato ma. VAGINA , URETHR A AND ANAL CANAL: Urethr a, vagina and anal canal appear ed normal . OTHER PELVIC STRUCT URES: Rectos igmoid and urinar y bladde r are normal . No lympha denopa thy is seen. Small amount of free fluid in the tree feller operator ior cul-de -sac IMPRES TREMAYNE: 1. Benign -appea ring mass involv ing the left ovary likely ovaria n dermoi d cyst 2. Partia l bicorn uate uterus Interp reted By: Otto Cintron MD Electr onical ly Signed By: Otto Cintron MD on 020 10:49 AM cbeiting [facility] [address], [address], 07/14/2019 14:46:30 10/06/19 20 10/06/2019 US, leslie henriquez, biljody eral [address] [address] Gustavo henriquez Name: DAGOBERTO henriquez : [address] Gustavo henriquez Orderi ng Provid er: JULITO SA BEITIN G EXAM DATE: 2019 EXAM: US BREAST BILAT LIMITE D INDICA TION: This is a 39-yea r-old woman referr ed for follow -up diagno stic imagin g of the breast s for masses and cysts discov ered previo usly in both breast s. PROCED URE: Bilate ral breast ultras ound. COMPAR ERLINDA: This was compar ed with previo us mammog danica and breast ultras ound images dated 2018. FINDIN GS: Left breast ultras ound demons trates a 16 x 13 x 5 mm hypoec hoic oval mass at the 12:00 positi on 5 cm from the nipple . This has no tree feller operator ior featur es or associ ated distor tion. This is not signif icantl y change d in size or shape compar ed with the previo us ultras ound. Right breast ultras ound was perfor med. This demons trates a 10 mm cyst with a thin septat ion at the 11:00 positi on 4 cm from the nipple . There is a 9 x 7 x 4 mm compli cated cyst with low level homoge neous nutrition internship al echoes at the 10:00 positi on 6 cm from the nipple . There is a 7 x 7 x 3 mm hypoec hoic oval mass at the 10:00 positi on 8 cm from the nipple . This has no tree feller operator ior featur es or associ ated distor tion. No nutrition internship al blood flow is detect ed with color Dopple r interr ogatio n. IMPRES TREMAYNE: BI-RAD S catego ry 3, Probab ly Benign . There is no suspic ious change in small masses and cysts discov ered previo usly in both breast s. The morpho logy, stabil ity and scatte red bilate ral distri bution of these findin gs favors a benign etiolo gy such as fibroc ystic change s and/or fibroa denoma s. Follow -up diagno stic mammog danica and ultras ound of the breast s are recomm ended in 6 months to confir m one-ye ar stabil ity. COMMEN T: Findin gs and recomm endati ons were discus sed with the patien t. Interp reted By: Buzz oliveira MD Electr onical ly Signed By: Buzz oliveira MD on 020 11:41 AM cbeiting [facility] [address] [place] [address], [address], 10/06/2019 14:09:59 05/01/20 20 05/01/2020 MAMMO , diagn ostic , tomos ynthe sis, bilat eral, w/ CAD [facility] [address] [place] [address], [place] [address] Gustavo henriquez Name: DAGOBERTO henriquez : 981 Gustavo henriquez Orderi ng Provid er: JULITO SA BEITIN G EXAM DATE: 2019 EXAM: MG ANTHONY DIAG DG MAMMOG MARIA INDICA TION: This is a 40-yea r-old woman referr ed for follow -up diagno stic imagin g of the breast s for small masses and cysts discov ered previo usly in both breast s. PROCED URE: Multis lice imagin g of both breast s was perfor med includ ing standa rd views using Hologi c Seleni a Dimens ions tomosy nthesi s equipm ent (3D mammog mary) . 2D images were create d from the 3D datase t using C-View softwa re. Bilate ral breast ultras ound was perfor med. COMPAR ERLINDA: This is compar ed with prior mammog danica dated er 2018. This compar ed with previo us breast ultras ound examin ations from October 06, 2019 and er 2018. FINDIN GS: Breast tissue is extrem speedy dense. This reduce s sensit ivity of mammog mary. There is no mass, distor tion or cluste r of calcif icatio ns. Masses and cysts may be obscur ed by extrem speedy dense tissue . There is no suspic ious change in the fibrog landul ar parenc hymal patter n. Left breast ultras ound was perfor med. This demons trates a 12 x 11 x 5 mm circum scribe d oval hypoec hoic mass at the 12:00 positi on 5 cm from the nipple . The mass has a thin echoge angel septat ion. There are no tree feller operator ior acoust ic featur es. No nutrition internship al blood flow is visibl e with color Dopple r. This is dimini shed in size compar ed with the previo us ultras ound. Right breast ultras ound was perfor med and demons trates a 6 mm simple cyst at the 10:00 positi on 8 cm from the nipple . There is a 6 x 5 x 5 mm benign -appea ring cyst with low level homoge neous nutrition internship al echoes at the 10:00 positi on 6 cm from the nipple . There is a 4 mm cyst at the 11:00 positi on. There is no suspic ious solid mass. IMPRES TREMAYNE: BI-RAD S catego ry 2, Benign . 1. A mass docume nted previo usly in the left upper breast is dimini shing in size. This improv ement confir ms a benign etiolo gy such as resolv ing focal fibroc ystic change . 2. Ultras ound of the right breast demons trates severa l small benign -appea ring cysts. There is no suspic ious mass. 3. No eviden ce of malign elian. Screen ing mammog danica are recomm ended in one year. Findin gs and recomm endati ons were discus sed with the gustavo henriquez. Interp reted By: Buzz oliveira MD Electr onical ly Signed By: Bzuz oliveira MD on 020 11:27 AM cbeiting [facility] [address], [address], 05/01/2020 12:49:42 05/01/20 20 05/01/2020 US, leslie henriquez, bilat eral [address] [address] Gustavo henriquez Name: DAGOBERTO Mckinley JESSICA Gustavo henriquez : 9[address] Patikathryn t Orderi ng Provid er: JULITO Shirley EXAM DATE: 2019 EXAM: US BREAST BILAT LIMITE D INDICA TION: This is a 40-yea r-old woman referr ed for follow -up diagno stic imagin g of the breast s for small masses and cysts discov ered previo usly in both breast s. PROCED URE: Multis lice imagin g of both breast s was perfor med includ ing standa rd views using Hologi c Seleni a Dimens ions tomosy nthesi s equipm ent (3D mammog mary) . 2D images were create d from the 3D datase t using C-View softwa re. Bilate ral breast ultras ound was perfor med. COMPAR ERLINDA: This is compar ed with prior mammog danica dated er 2018. This compar ed with previo us breast ultras ound examin ations from October 06, 2019 and er 2018. FINDIN GS: Breast tissue is extrem speedy dense. This reduce s sensit ivity of mammog mary. There is no mass, distor tion or cluste r of calcif icatio ns. Masses and cysts may be obscur ed by extrem speedy dense tissue . There is no suspic ious change in the fibrog landul ar parenc hymal patter n. Left breast ultras ound was perfor med. This demons trates a 12 x 11 x 5 mm circum scribe d oval hypoec hoic mass at the 12:00 positi on 5 cm from the nipple . The mass has a thin echoge angel septat ion. There are no tree feller operator ior acoust ic featur es. No nutrition internship al blood flow is visibl e with color Dopple r. This is dimini shed in size compar ed with the previo us ultras ound. Right breast ultras ound was perfor med and demons trates a 6 mm simple cyst at the 10:00 positi on 8 cm from the nipple . There is a 6 x 5 x 5 mm benign -appea ring cyst with low level homoge neous nutrition internship al echoes at the 10:00 positi on 6 cm from the nipple . There is a 4 mm cyst at the 11:00 positi on. There is no suspic ious solid mass. IMPRES TREMAYNE: BI-RAD S catego ry 2, Benign . 1. A mass docume nted previo usly in the left upper breast is dimini shing in size. This improv ement confir ms a benign etiolo gy such as resolv ing focal fibroc ystic change . 2. Ultras ound of the right breast demons trates severa l small benign -appea ring cysts. There is no suspic ious mass. 3. No eviden ce of malign elian. Screen ing mammog danica are recomm ended in one year. Findin gs and recomm endati ons were discus sed with the patien martinez. Interp reted By: Buzz oliveira MD Electr onical ly Signed By: Buzz oliveira MD on 020 11:27 AM cbeiting [facility] [address], [address], 05/01/2020 12:49:42 05/06/20 21 05/06/2021 MAMMO , scree prema, tomos ynthe sis, bilat eral, w/ CAD [address] [address] Patikathryn t Name: DAGOBERTO henriquez : [phone] Age: 41 years Patien t Orderi ng Provid er: JULITO SA BEITIN G EXAM DATE: 2020 EXAM: MG SCREEN ING DG MAMMOG MARIA INDICA TION: Routin e screen ing. PROCED URE: Multis lice imagin g of both breast s was perfor med in standa rd projec tions using Hologi c Seleni a Dimens ions tomosy nthesi s equipm ent (3D mammog mary) . 2D images were create d from the 3D datase t using C-View softwa re. The study was read with the assist ance of Comput er Aided Detect ion (CAD) softwa re. COMPAR ERLINDA: This was compar ed with previo us mammog danica dated 2019, 2018 FINDIN GS: The breast s are extrem speedy dense. This reduce s the sensit ivity of mammog mary. There is no suspic ious mass or cluste r of calcif icatio ns. No rosalee ectura l distor tion. Multip le asymme tries are presen t with few scatte red benign calcif icatio ns, stable patter n IMPRES TREMAYNE: BI-RAD S catego ry 2, Benign . There is no eviden ce of malign elian. Screen ing mammog danica are recomm ended in one year. Consid er contra st-enh anced mammog mary at that time due to dense nodula r breast parenc hyma Result s were mailed or given to the patien deejay Espitia reted By: Otto Cintron MD Electr onical ly Signed By: Otto Cintron MD on 2020 11:35 AM [email or web address] [facility] [address] [place], [address], 05/29/2021 10:35:18 Result Notes Documentation Provider Name and Address Organization Details Recorded Time Mri, Pelvis, W/wo Contrast : [address] [address] Patient Name: JACQUI EUCEDA Patient : 1980 Patient Ordering Provider: SANDRA CORONA EXAM DATE: 07/13/2019 EXAM: MR PELVIS W/WO CONTRAST CLINICAL INFORMATION: The patient did not require sedation for this exam. TECHNIQUE: Multiple multiaxial MR images of the pelvis were obtained in T1 and T2 weighted sequences before and in T1 weighted sequences after injection of 7.5 mL (1 x 7.5 mL bottle of [facility] [id number]) IV. COMPARISON: None. FINDINGS: UTERUS: Size = 6.4 x 2.1 x 2.9 cm. EMS thickness = 7.8 mm. Partial bicornuate uterus. Anteverted, anteflexed, normal in size. The junctional zone is normal in thickness. No myometrial abnormality seen. RIGHT ADNEXA: Right ovary is normal in size and appearance. No adnexal mass. LEFT ADNEXA: There is a 3.3 x 3.6 cm mass involving the left adnexa likely arising from the ovary. This is T1 hyperintense with hypointense areas along the inferior aspect. This is intermediate signal intensity on T2. This is most in keeping with ovarian dermoid cyst or mature teratoma. VAGINA, URETHRA AND ANAL CANAL: Urethra, vagina and anal canal appeared normal. OTHER PELVIC STRUCTURES: Rectosigmoid and urinary bladder are normal. No lymphadenopathy is seen. Small amount of free fluid in the posterior cul-de-sac IMPRESSION: 1. Benign-appearing mass involving the left ovary likely ovarian dermoid cyst 2. Partial bicornuate uterus Interpreted By: Otto Cintron MD E PIERCE MD [address] [place] [address], [phone], [facility] 07/14/2019 14:46:31 Mammo, Diagnostic, Tomosynthesis, Bilateral, W/ Cad : [address] [address] Patient Name: JACQUI EUCEDA Patient : 1980 Patient Ordering Provider: LAYNE PIERCE EXAM DATE: 05/01/2020 EXAM: MG ANTHONY DIAG DG MAMMOGRAM INDICATION: This is a 40-year-old woman referred for follow-up diagnostic imaging of the breasts for small masses and cysts discovered previously in both breasts. PROCEDURE: Multislice imaging of both breasts was performed including standard views using [employer] tomosynthesis equipment (3D mammography). 2D images were created from the 3D dataset using C-View software. Bilateral breast ultrasound was performed. COMPARISON: This is compared with prior mammograms dated April 01, 2019. This compared with previous breast ultrasound examinations from October 06, 2019 and April 01, 2019. FINDINGS: Breast tissue is extremely dense. This reduces sensitivity of mammography. There is no mass, distortion or cluster of calcifications. Masses and cysts may be obscured by extremely dense tissue. There is no suspicious change in the fibroglandular parenchymal pattern. Left breast ultrasound was performed. This demonstrates a 12 x 11 x 5 mm circumscribed oval hypoechoic mass at the 12:00 position 5 cm from the nipple. The mass has a thin echogenic septation. There are no posterior acoustic features. No internal blood flow is visible with color Doppler. This is diminished in size compared with the previous ultrasound. Right breast ultrasound was performed and demonstrates a 6 mm simple cyst at the 10:00 position 8 cm from the nipple. There is a 6 x 5 x 5 mm benign-appearing cyst with low level homogeneous internal echoes at the 10:00 position 6 cm from the nipple. There is a 4 mm cyst at the 11:00 position. There is no suspicious solid mass. IMPRESSION: BI-RADS category 2, Benign. 1. A mass documented previously in the left upper breast is diminishing in size. This improvement confirms a benign etiology such as resolving focal fibrocystic change. 2. Ultrasound of the right breast demonstrates several small benign-appearing cysts. There is no suspicious mass. 3. No evidence of malignancy. Screening mammograms are recommended in one year. Findings and recommendations were discussed with the patient. Interpreted By: Buzz Baltazar MD E PIERCE MD [address] [place] [address], [phone] [place] [address] 05/01/2020 12:49:42 Mammo, Screening, Tomosynthesis, Bilateral, W/ Cad : [address] [address] Patient Name: JACQUI EUCEDA Patient : 1980 Age: 41 years Patient Ordering Provider: LAYNE PIERCE EXAM DATE: 05/06/2021 EXAM: MG SCREENING DG MAMMOGRAM INDICATION: Routine screening. PROCEDURE: Multislice imaging of both breasts was performed in standard projections using [employer] tomosynthesis equipment (3D mammography). 2D images were created from the 3D dataset using C-View software. The study was read with the assistance of Computer Aided Detection (CAD) software. COMPARISON: This was compared with previous mammograms dated 05/01/2020, 04/01/2019 FINDINGS: The breasts are extremely dense. This reduces the sensitivity of mammography. There is no suspicious mass or cluster of calcifications. No architectural distortion. Multiple asymmetries are present with few scattered benign calcifications, stable pattern IMPRESSION: BI-RADS category 2, Benign. There is no evidence of malignancy. Screening mammograms are recommended in one year. Consider contrast-enhanced mammography at that time due to dense nodular breast parenchyma Results were mailed or given to the patient. Interpreted By: Otto Cintron MD Adriana Tomlin [facility] 05/29/2021 10:35:18 Problems Name Problem SNOMED Code Status Onset Date Resolution Date Notes Provider Name and Address Organization Details Recorded Time Chronic interstit ial cystitis 144952262 Active 2014 From Automated Load;Provi willy: Raffi Rubio;Shannan tus: Active Not Available [facility] 6 12:51:18 Gastroint estinal tract finding Active 2014 From Automated Load;Provi willy: Rachna Amor;Sta tus: Active Not Available [facility] 6 12:51:18 Constipat ion 94451991 Active 2014 From Automated Load;Provi willy: Rachna Amor;Sta tus: Active Not Available [facility] 6 12:51:18 Chronic cystitis 53722865 Active 2015 From Automated Load;Provi willy: Raffi Rubio;Sta tus: Active Not Available [facility] 6 12:51:18 Urinary tract infectiou s disease 24350882 Active 2015 From Automated Load;Provi willy: Raffi Rubio;Sta tus: Active Not Available [facility] 6 12:51:18 Pelvic and perineal pain 535917506 Active 2015 From Automated Load;Provi willy: Heather Diego;Statu s: Active Not Available [facility] 6 12:51:18 Bleeding 835575316 Active 2015 From Automated Load;Provi willy: Heather Diego;Statu s: Active Not Available [facility] 6 12:51:18 Abdominal pain 13567262 Active 2015 From Automated Load;Provi willy: Rachna Amor;Sta tus: Active Not Available [facility] 6 12:51:18 Screening for malignant neoplasm of breast Active 2018 [facility] 11:13:12 Problem Notes None recorded. Procedures Surgical History Date Name Laterality Status Provider Name and Address Organization Details Recorded Time 05/06/20 21 Date of Last Mammogram completed [facility] 04/03/2022 13:32:46 04/02/20 21 Pap Smear collection completed LAYNE PIERCE MD [address] [place] [address], [phone], [facility] 04/02/2021 09:20:00 04/02/20 21 Date of Last Pap Smear completed Sandra Patrick [facility] 04/02/2021 08:57:41 08/08/19 20 Oophorectomy completed [facility] 03/29/2020 11:13:31 03/16/20 18 Pap Smear collection completed LAYNE PIERCE MD [address] [place] [address], [phone], [facility] 03/16/2018 15:42:57 01/23/20 16 Date of Last Colonoscopy completed [facility] 03/16/2018 14:58:11 cystoscopy completed [facility] 03/16/2018 14:56:31 Imaging Results None recorded. Procedure Notes None recorded. Medical Equipment None Reported. Allergies Allergen ID Allergen Name Allergen Category Reaction Reaction Severity Criticality Documentation Date Start Date Code Code System Note Provider Name and Address Organization Details Recorded Time 148494 Keflex medicatio n Not available Not available Not available 04/18/2016201316 7 RxNorm Comme nt: Creat ed By: Cecilia randle Date: 03/09 4:16: 03 PM; Not Available [facility] 6 04:45:59 174821 amoxicill in trihydrat e medicatio n rash Not available Not available 04/18/20162008 16093 8 RxNorm React ion: RASH; Comme nt: Creat ed By: Heaven owen Date: 2008 11:37 :30 AM; Not Available [facility] 6 05:06:39 Medications Name Sig Start Date Stop Date Status Note LastModified by Organization Details LastModified Time terconazo le 0.4 % vaginal cream Insert 1 applicat orful every day by vaginal route for 7 days. active Not Available Not Available No t Available fluconazo le 150 mg tablet TAKE 1 TABLET BY MOUTH ONCE DAILY FOR 3 DAYS active Not Available Not Available No t Available prednison e 20 mg tablet TAKE 1 TABLET BY MOUTH THREE TIMES DAILY FOR 7 DAYS THEN TAKE 1 TWICE DAILY FOR 7 DAYS active Not Available Not Available No t Available Pyridium 200 mg tablet Take 1 tablet 3 times a day by oral route as needed. 12/04 completed Not Available Not Available Not Available Elmiron 100 mg capsule TAKE 1 CAPSULE BY MOUTH THREE TIMES A DAY 04/02 completed Not Available Not Available Not Available sulfameth oxazole 800 mg-trimet hoprim 160 mg tablet TAKE 1 TABLET BY MOUTH EVERY 12 HOURS FOR 7 DAYS active Not Available Not Available No t Available FiberCon 625 mg tablet Daily 03/16 completed Frequenc y: daily;Me dication Descript ion: polycarb ophil; Dosage:2 ; Route:or al; refills: 0 Not Available Not Available Not Available amitripty line 25 mg tablet TAKE 1 TABLET BY MOUTH ONCE DAILY AT BEDTIME active Not Available Not Available No t Available famciclov ir 500 mg tablet TAKE 1 TABLET BY MOUTH THREE TIMES DAILY FOR 7 DAYS active Not Available Not Available No t Available mometason e 50 mcg/actua tion nasal spray USE 2 SPRAY(S) IN EACH NOSTRIL ONCE DAILY TO TWICE DAILY NEEDED active Not Available Not Available No t Available omeprazol e 20 mg capsule,d elayed release TAKE 1 CAPSULE BY MOUTH ONCE DAILY active Not Available Not Available No t Available lisinopri l 5 mg tablet TAKE 1 TABLET BY MOUTH ONCE DAILY active Not Available Not Available No t Available methylpre dnisolone 4 mg tablets in a dose pack TAKE BY MOUTH DIRECTED ON INSIDE OF PACKAGE active Not Available Not Available No t Available escitalop maria 10 mg tablet TAKE 1 TABLET BY MOUTH ONCE DAILY active Not Available Not Available No t Available escitalop maria 20 mg tablet TAKE 1 TABLET BY MOUTH ONCE DAILY FOR 90 DAYS active Not Available Not Available No t Available metaxalon e 800 mg tablet TAKE 1 TABLET BY MOUTH THREE TIMES DAILY NEEDED active Not Available Not Available No t Available Bhavani 0.35 mg tablet Take 1 tablet every day by oral route. active Not Available Not Available No t Available rosuvasta tin 5 mg tablet TAKE 1 TABLET BY MOUTH ONCE DAILY active Not Available Not Available No t Available Lexapro 5 mg tablet Take 1 tablet every day by oral route. active Not Available Not Available No t Available lisinopri l Bedtime 03/17 completed Duration : 30 days;Gabriele quency: hs;Medic ation Descript ion: lisinopr il; Dosage:1 ; Route:or al; refills: 5; Quantity :30 tablet Not Available Not Available Not Available Miralax Daily 03/16 completed Instruct ions: 17gm in 8oz fluids QTY QS;Frequ ency: daily;Me dication Descript ion: polyethy jenni glycol 3350; Dosage:a s directed ; Route:or al; refills: 0; Quantity :1 powder for reconsti tution Not Available Not Available Not Available Xyzal 03/16 completed Medicati on Descript ion: levoceti rizine; Route:or al; refills: 0 Not Available Not Available Not Available omeprazol e 20 mg tablet,de layed release Daily 03/16 completed Frequenc y: daily;Me dication Descript ion: omeprazo le; Dosage:1 ; Route:or al; refills: 2; Quantity :60 delayed release tablet Not Available Not Available Not Available desvenlaf axine succinate ER 50 mg tablet,ex tended release 24 hr TAKE 1 TABLET BY MOUTH ONCE DAILY active Not Available Not Available No t Available Zyrtec 10 mg capsule Take by oral route. active Not Available Not Available No t Available desvenlaf axine succinate ER 25 mg tablet,ex tended release 24 hr TAKE 1 TABLET BY MOUTH ONCE DAILY active Not Available Not Available No t Available Chantell 24 Fe 1 mg-20 mcg (24)/75 mg (4) tablet Take 1 tablet every day by oral route. active Not Available Not Available No t Available 03/29 completed Not Available Not Available Not Available Ubrelvy 100 mg tablet TAKE 1 TABLET BY MOUTH ONCE DIRECTED NEEDED active Not Available Not Available No t Available Vitals Date Recorded Body height Body mass index (BMI) Body weight Systolic And Diastolic Provider Name and Address Organization Details Last Updated DateTime 12/05/2019 165.1 cm 26.6 kg/m2 42771.78 g 118/88 mm[Hg] Joel [facility] 12/05/2019 13:41:53 Date Recorded Body height Body mass index (BMI) Body weight Systolic And Diastolic Provider Name and Address Organization Details Last Updated DateTime 03/29/2020 165.1 cm 27.6 kg/m2 00944.33 g 122/76 mm[Hg] Sue Coughlin [facility] 03/29/2020 11:16:57 Date Recorded Body weight Systolic And Diastolic Provider Name and Address Organization Details Last Updated DateTime 04/02/2021 35112.66 g 123/84 mm[Hg] Sandra Patrick [facility] 04/02/2021 09:00:38 Date Recorded Body height Body mass index (BMI) Body weight Systolic And Diastolic Provider Name and Address Organization Details Last Updated DateTime 05/12/2019 165.1 cm 24.8 kg/m2 32383.26 g 110/80 mm[Hg] Fani Reese [facility] 05/12/2019 13:46:25 Social History Question Answer Notes LastModified by Organizat ion Details LastModified Time Tobacco Smoking Status Never [facility]oker [facility] 03/16/2018 14:56:19 How Much Tobacco Do You Chew? None [email or web address] Information not available 05/12/2019 Marital Status [email or web address] Informatio n not available 03/16/2018 What Was The Date Of Your Most Recent Tobacco Screening? 04/02/2021 Information not available 04/02/2021 Sex: Unknown Functional Status Question Answer Note LastModified by Organization D etails LastModified Time Do you or have you ever used any other forms of tobacco or nicotine? No Information not available 04/02/2021 Mental Status None recorded. Family History Relationship Description Onset Age of this Age Resolved Age Notes LastModified by Organization Details LastModified Time Maternal Aunt Malignant neoplasm of ovary [email or web address] Not available 2017 14:57:11 Paternal Grandfather Myocardial infarction [email or web address] Not available 03/16 14:57:25 Father Heart disease [email or web address] Not available 2017 14:57:35 Medical History Condition Response Diabetes N Anxiety Disorder Y Allergies/Hayfever Y Other Y Hyperlipidemia N Cancer N Stroke N Thyroid Problems N Sleep Apnea N High Cholesterol N Heart Attack ([place]) N Deep Vein Thrombosis N Hypertension N Gynecological History Statement/Question Response Abnormal Pap Y Date of Last Colonoscopy 01/23/2016 Date of Last Mammogram 05/06/2021 Flow Moderate Date of LMP 03/20/2021 Sexually Active? Y Menses Monthly Y Date of Last Pap Smear 04/02/2021 Duration of Flow (days) 7 Current Control Method BCPs Obstetrics History GPAL:G 0 P 0 0 0 0 Past Encounters Encounter ID Performer Location Encounter Start Date Encounter Closed Date Diagnosis/Indication Diagnosis SNOMED-CT Code Diagnosis ICD10 Code Diagnosis Note [id number] [facility] [address] 08/25/2016 14:52:20 08/25/2016 14:52:20 [id number] LAYNE PIERCE MD [facility] [facility] [address] [place] [address] 03/16/2018 14:26:36 03/16/2018 16:16:01 Routine gynecologic examination done [id number] 9101 Z01.419 no masses Infection screening 2437 82136 Z11.51 If pap and HPV cotesting normal recheck 3 years. Screening for malignant neoplasm of cervix 880914499 Z12.4 [id number] RAFFI RUBIO MD [facility] [address] [facility],[address] [place] [address] 09/30/2018 15:23:42 10/13/2018 10:52:21 Chronic interstitial cystitis 262966418 N30.10 [id number] RAFFI RUBIO MD [facility] [address] [facility],[place] [address] 11/04/2018 14:32:50 12/01/2018 08:59:48 Chronic interstitial cystitis 266084103 N30.10 [id number] LAYNE PIERCE MD [facility] [address] [place] [address] 03/17/2019 10:53:19 03/17/2019 13:37:32 Routine gynecologic examination done 8801757925 9101 Z01.419 Discussed there is no significan t prolapse seen on exam to note any issues with bowels. Educated to continue doing pelvic floor exercises/ kegels. Pap UTD, will repeat in 2020. hx of IC hx of hemorrhoid s/ DR Fuller, hx of pelvic floor PT for Ic. and other benign pelvic issues Mass of left breast 1224 786702 9234379 N63.20 Order diagnostic mammogram and u/s of left breast. Fullness of left breast at 12 o'clock. Aunt with history of ovarian cancer, does not believe she had BRCA testing. Educated patient we could do this is she would like or refer for genetic counseling if she would like to do this. Informed recommende d doing BRCA testing. States she would like to proceed with this. Genetic susceptibility to cancer 2435324025 9109 Z15.03 maternal aunt with ovarian cancer. no records since long ago. pt has not had genetic testing. will recommend to start tvus ovarian cancer screening as well. yearly Family his tory of malignant neoplasm of ovary 537080429 Z80.41 start yearly tvus screening [id number] RAFFI RUBIO MD [facility] [address] [place] [address] 05/12/2019 13:31:08 05/16/2019 07:14:51 Urinary tract infectious disease 97680571 N39.0 Dysuria 69105623 R30.9 Chronic in terstitial cystitis 324440319 N30.10 [id number] LAYNE PIERCE MD [facility] [address] [place] [address] 12/05/2019 13:37:46 12/05/2019 16:05:54 Vaginospasm 97592318 N94.2 Physical therapy Endometrio sis of pelvis 02359599 N80.3 s/p laparoscop y and left oophorecto my for endometrio ma. Dr Fraser. pt on for now 06/13. watch the btb. pt with prior hx of miagraine headaches. the btb is normal side effect. recommend TVUS for rechecking u/s next year. in Jun or so. Chronic in terstitial cystitis 943331933 N30.10 on meds [id number] LAYNE PIERCE MD [employer] [facility] [address] [place] [address] 03/29/2020 11:06:44 03/29/2020 12:25:28 Endometriosis of pelvis 28423089 N80.3 headache. miagraines . will change off the regular ocp. to the bhavani progestero ne only. endometrio ma removed. Routine gy necologic examination done 7939238741 9101 Z01.419 Discussed there is no significan t prolapse seen on exam to note any issues with bowels. Educated to continue doing pelvic floor exercises/ kegels. Pap UTD, will repeat in 2020. hx of IC hx of hemorrhoid s/ DR Fuller, hx of pelvic floor PT for Ic. and other benign pelvic issues Vaginospasm 13596040 N94 .2 Physical therapy, pt has one but not currently doing therapy due to COVID [id number] LAYNE PIERCE MD [facility] [address] [place] [address] 04/02/2021 08:52:37 04/02/2021 10:58:02 Endometriosis of pelvis 68067430 N80.[address] Maradiaga 2020 for endoemtrio sis. stable on ocp. Routine gy necologic examination done 4534036343 9101 Z01.419 pap today, 3 year cotesting. hx of IC hx of hemorrhoid s/ DR Fuller, hx of pelvic floor PT for Ic. and other benign pelvic issues Screening for malignant neoplasm of breast 631771778 Z12.39 Candidiasis of skin 4988 3006 B37.2 [id number] GRICELDA HARMAN , [facility] [address] [place] [address] 06/20/2022 09:58:06 06/23/2022 08:30:18 Health Concerns Section Related Observation LastModified by Organization Detai ls LastModified Time None Recorded Concern Status LastModified by Organization Details LastModified Time None Recorded Advance Directives Directive None Recorded Payers Insurance Date Sequence Insurance Name Policy Number Policy Cummins Covered Member ID Cummins Member ID Guarantor Name 08/26/2022 1 [place] [id number] Jacqui Euceda [id number] Jacqui Alarconre 03/27/2021 2 [place] [id number] Jacqui Alarconre [id number] Jacqui Alarconre 03/27/2021 2 [place] [id number] Jacqui Alarconre [id number] Jacqui Euceda Notes Date Note Type Note Provider Name and Address Organization Details Recorded Time 05/12/20 19 text/htm l 39-year-old female in the office for follow-up evaluation of chronic interstitial cystitis. She takes Elmiron once daily typically. Over the last week she reports worsened lower urinary symptoms and has been taking Elmiron twice daily. She complains of bladder pressure with urgency. She has history of rectal prolapse. She has been evaluated by [employer] [facility] for low-lying cervix with possible pressure on the bladder and rectum. [employer] did not have concern of problem. She has been taking Bactrim for upper respiratory infection. RAFFI RUBIO MD [facility] [place], [address], [facility] 05/15/2019 15:15:21 12/05/19 20 text/htm l Recheck after visit with Dr. Fraser- appt note in chart Left salpingo-oophorectomy ON July s/p surgery for endometriosis. benign and no cancer Dr Fraser put her on the . She is having alot of BTB on this. She is having a bunch of mood swings as well. This has been worse since her surgery. She thinks her hormones are out of whack. Her surgery was July 31. She has used the 06/13 since then only 3 months. Painful sexual relations. really bad . zero sexual drive. she is on lexapro and well she has interstitial cystitis. also. has alot of chronic bladder pain from this. pt with some pain with intercourse. has had treatment with physical therapy as well . Has been to [facility] and [facility]. She did this with [facility] as well. LAYNE PIERCE MD [address] [place] [address], [phone], [facility] 12/05/2019 14:30:33 03/29/20 20 text/htm l annual exam today, G0 last seen: 11/2019 for endo recheck: s/p laparoscopy and left oophorectomy for endometrioma. Dr Fraser. pt on for now 06/13. watch the btb. pt with prior hx of miagraine headaches. the btb is normal side effect. Pt also seen for vaginospasms, referred to PT for this. last pap: 02/2018, returned normal, next pap 2020 hx of abnormal pap: no fam hx: ovarian cancer (maternal aunt) last mamm: 03/2019 probably benign order placed for another mamm 08/2019 Pt has been getting headaches lately- may be from eyesight issues/glasses. Pt complains of extreme pelvic pain with intercourse. s/p oophorectomy for endometiosis Dr Fraser. started on the ocp to prevent. now with headaches. may be her vision. trying to wear the eyeglasses more over the last week. MRI uteurs/ showed partial bicornuate uterus. mammgram dense breast. had u/s last year LAYNE PIERCE MD [address] [place], [address], [facility] 03/29/2020 11:35:12 04/02/20 21 text/htm l annual exam today, g0, pap due,last seen: annual 03/2020 endometriosis of pelvisheadache. miagraines. will change off the regular ocp. to the bhavani progesterone only. endometrioma removed.Start Bhavani 0.35 mg tablet 1 tablet every dayroutine gynecologic examination doneDiscussed there is no significant prolapse seen on exam to note any issues with bowels. Educated to continue doing pelvic floor exercises/kegels.Pap UTD, will repeat in 2020.hx of IChx of hemorrhoids/ DR Fuller,hx of pelvic floor PT for Ic. and other benign pelvic issuesvaginospasmPhysical therapy, pt has one but not currently doing therapy due to COVIDProvided vaginismus: care instructions last pap: 02/2018hx abn pap: nolast mamm: 04/2020fam hx: ovarian ca (maternal aunt)Pt with left oophorectomy Pt feels like she has a yeast infection, no other [employer] complaints. hx endometriosis and on for this. LAYNE PIERCE MD [address] [place], [address], [facility] 04/02/2021 10:08:18 OBGyn Episode No OBEpisode recorded.
== END ==
LOC: SL 14:07
PROVIDERS: PCP Physician Assistant; Visit Provider Specialist
DX: G47.33 Obstructive sleep apnea (adult) (pediatric) (principal)
CPT/HCPCS: 94762

== ENCOUNTER 2024-12-26 13:25 | Outpatient (CLI) | payer BC, SELFPAY ==
--- OUTSIDE RECORDS SUMMARY | 2024-08-16 09:45 | XMS_ITS ---
Author Organization [facility] Address [address] [facility] [address] [place] [phone] Care Team Providers Care Mechanical Spreader Operator Name Role Phone April Ayala Primary Care Provider Veronika Duran Joce Unavailable [phone] Allergies Allergen (clinical drug ingredient) Drug/Non Drug [...] capsule by [facility] once daily; Duration: 90 days Active [...] 08/16/2024 Encounters Encounter Location Date Provider Diagnosis [facility] [address] [facility] [address] [place], [place] [phone] 08/16/2024 Veronika Duran UTI (lower urinary tract [...] * PATRICIA CHICASDOB:[birth year] (44 yo F)Acc No.[id number]:08/16/2024 Progress Notes Patient: Arlen PATRICIA MILTON Provider: Veronika Duran M.D. :1980 A ge:44 Y S ex:Female Date:08/16/2024 Address:[address] [place], [place] [address] [id number] Pcp:April Ayala Subjective: * Chief Complaints: * 1 . Going on a trip wants something for anxiety. * HPI: H PI: 44 year old female presents with c/o Patient is here today for?Pt sts she is here today for anxiety medication. She is flying to [place] in a couple weeks and is requesting [...] right ovary with removal. * Surgical History: [facility] -Removal of right ovary 07/2019. * Family [...] ome smoke detector use: yes. 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 * Medications: T aking Richa Allergy 180 [...] * Images: Billing Information: * Visit Code: 46297 Office Visit, Est Pt., Level 3. * Procedure Codes: 20537 Urinalysis, no micro. 3074F SYST BP LT 130 MM HG. 3078F DIAST BP < 80 MM HG. * Electronic signature of Veronika Duran MD on 12/27/2024 at 03:04 PM EDT Sign off status: Pending * Provider: Veronika Duran M.D. Date: 0 08/16/2024 Generated for Pedro tovar/Alexander/Daljititting on: 0 12/27/2024 03:04 PM EDT History and Physical Notes * [...]
--- OUTSIDE RECORDS SUMMARY | 2024-11-18 10:00 | XMS_ITS ---
Author Organization [facility] Address [address] [facility] [address] [place] [phone] Care Team Providers Care High School Guidance Counselor Name Role Phone April Ayala Primary Care Provider Allergies Allergen (clinical drug ingredient) Drug/Non Drug Allergy documented on EMR Reaction Allergy Type Onset Date Status amoxicillin Amoxicillin Unknown Drug Allergy Act ezio cephalexin Cephalexin Unknown Drug Allergy Activ e clindamycin Clindamycin Unknown Drug Allergy Act ezio Results Component Value Reference Range Notes Urinalysis - Inhouse Reviewed date:11/18/2024 04:02:44 PM Interpretation: Performing Lab: Notes/Report: Color/Clarity yellow/cloudy Leuk 3+ Nitrite neg Urobili 3.2 Protein neg pH 6.5 Blood trace-lysed Sp. Gr. 1.010 Ketone neg Bili neg Gluc neg P-Culture, Urine Reviewed date:11/21/2024 11:24:33 PM Interpretation: Performing Lab: Notes/Report: Test performed by [facility] [address] [place] [address] , [address], [place] [address] Santy Lee MD, Benefit Specialist CLIA: [id number] Specimen Source Urine - Void Culture, Urine See Below Final Report : 15,000-25,000 CFU/ml Mixed Gram Positive Organisms Three or more organisms present likely representing contamination during collection by patient's urogenital, skin, and/or fecal brandy. Organism identification and sensitivity assessment are not recommended. Specimen recollection is recommended. REASON FOR VISIT poss bladder infection Medications Medication SIG (Take, Route, Frequency, Duration) Notes Start Date End Date Status ALPRAZolam 0.5 MG 1 tablet Orally 1 ho ur before flying 08/16/2024 Active Diflucan 150 MG 1 tablet Orally once 08/16/2024 Active Lisinopril 5 MG Take 1 tablet by once daily; Duration: 90 Active Omeprazole 20 MG 1 capsule 1/2 to 1 hour before morning meal Orally Once a day; Duration: 90 days Active Escitalopram Oxalate 20 MG Take 1 tablet by mouth once daily; Duration: 90 Active Junel FE 06/13 1-20 MG-MCG 1 tab(s) orall y once a day Active Rosuvastatin Calcium 10 MG 1 tablet Oral ly Once a day; Duration: 90 days Active Flonase Allergy Relief 50 MCG/ACT 1 spray in each nostril Nasally Once a day; Duration: 30 day(s) 05/13/2023 Active Ciprofloxacin HCl 500 MG 1 tablet Orally Two times a day 08/16/2024 Active Cyclobenzaprine HCl 5 MG 1 tablet Orally three times a day as needed Active Multivitamin - 1 tablet Orally Once a day; Duration: 30 day(s) Active Macrobid 100 MG 1 capsule with food Orally every 12 hrs; Duration: 7 days 11/18/2024 Active Richa Allergy 180 MG 1 tablet Swallow whole with water; do not take with fruit juices. Orally Once a day; Duration: 30 day(s) Active methylPREDNISolone 4 MG 1 tablet with fo od or milk Orally every 12 hrs Active Vital Signs Weight 185 lbs 11/18/2024 Blood pressure systolic 122 mm Hg 11/19/19 25 Blood pressure diastolic 70 mm Hg 025 Heart Rate 78 /min 11/18/2024 Height 65.50 in 11/18/2024 BMI 30.31 kg/m2 11/18/2024 Encounters Encounter Location Date Provider Diagnosis [facility] [address] [facility] [address] [place], [place] [phone] 11/18/2024 April Ayala Dysuria R30.0 Assessments Encounter Date Diagnosis (ICD Code) Assessment Notes Treatment Notes Treatment Clinical Notes Section Notes 11/18/2024 Dysuria (ICD-10 - R30.0) Plan Of Treatment Medication Medication Name Sig Start Date Stop Date Notes Macrobid 100 MG 1 capsule with food Orally every 12 hrs; Duration: 7 days 11/18/2024 Next Appt Details Follow Up: via phone to repo rt test results, Reason: Progress Notes * PATRICIA CHICASDOB:[birth year] (44 yo F)Acc No.[id number]:11/18/2024 Progress Notes Patient: PATRICIA CHOU Provider: MARIANA Knight :1980 A ge:44 Y S ex:Female Date:11/18/2024 Address:[address] [place] [address] FARHANA Guerrero [id number] Subjective: * Chief Complaints: * 1 . Poss bladder infection. * HPI: U rology: Denies : hematuria. D enies : fever. burning sensation P t c/o of burning when she urine. Pt states this stated Thursday night. * ROS: D ERMATOLOGY: no R guy. n o H shweta. G ASTROENTEROLOGY: no N ausea. n o V omiting. U ROLOGY: no D ifficulty urinating. n o B lood in urine. * Medical History: H ypertension, Esophageal reflux, Interstitial cystitis - follows with urology, Allergic rhinitis, Endometrioma of right ovary with removal. * Surgical History: [facility] -Removal of right ovary 07/2019. [...] ome smoke detector use: yes. 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 * Medications: T aking methylPREDNISolone 4 MG Tablet 1 tablet with food or milk Orally every 12 hrs , Taking Richa Allergy 180 MG Tablet 1 tablet [...] times a day as needed , Taking Ciprofloxacin HCl 500 MG Tablet 1 tablet Orally Two times a day , Taking Diflucan 150 MG Tablet 1 tablet Orally once , Taking ALPRAZolam 0.5 MG Tablet 1 tablet Orally 1 hour before flying , Taking Lisinopril 5 MG Tablet Take 1 tablet by mouth once daily , Taking Escitalopram Oxalate 20 MG Tablet Take 1 tablet by mouth once daily , Taking Omeprazole 20 MG Capsule Delayed Release 1 capsule 1/2 to 1 hour before morning meal Orally Once a day , Medication List reviewed and reconciled with the patient * Allergies: C ephalexin, Amoxicillin, Clindamycin. Objective: * Vitals: W t: 185, Temp: 97.6, BP: 122/70, HR: 78, Nurse: lake, Ht: 65.50, BMI:30.31. * Examination: G eneral Examination: General Appearance: N AD. C hest: n ormal shape and expansion. H eart: R SR. L ungs: c lear to auscultation. A bdomen: b owel sounds present, soft and nontender. B ack: n o CVA tenderness. Assessment: * Assessment: 1. D ysuria - R30.0 (Primary) Plan: * Treatment: Value Reference Range C ulture, Urine See Below - * S pecimen Source Urine - Void - * April Ayala 11/21/2024 1 1:24:27 PM EDT >see TE ?LAB: Urinalysis - Inhouse (Collection Date & Time - 11/18/2024)* Value Reference Range C olor/Clarity yellow/cloudy * L euk 3+ * N itrite neg * U robili 3.2 * P rotein neg * p H 6.5 * B lood trace-lysed * S p. Gr. 1.010 * K etone neg * B cristobal neg * G jeremie neg * Halima eTllo 11/18/2024 02 :14:52 PM EDT > Provider reviewed results while patient in office.April Ayala 11/18/2024 04:02:42 PM EDT > * Procedure Codes: 8 1002 Urinalysis, no micro, 1036F TOBACCO NON-USER, G8783 BP SCR PRFRM RCMDD DEFIND SCR INTVL, G8752 MOST RECENT SYSTOLIC BP < 140MM HG, G8754 MOST RECENT DIASTOLIC BP < 90MM HG * Follow Up: v ia phone to report test results * Images: Billing Information: * Visit Code: 65564 Office Visit, Est Pt., Level 3. * Procedure Codes: 09005 Urinalysis, no micro. 1036F TOBACCO NON-USER. G8783 BP SCR PRFRM RCMDD DEFIND SCR INTVL. G8752 MOST RECENT SYSTOLIC BP < 140MM HG. G8754 MOST RECENT DIASTOLIC BP < 90MM HG. * Electronic signature of MARIANA Preciado on 12/27/2024 at 03:04 PM EDT Sign off status: Pending * Provider: MARIANA Knight Date: 0 11/18/2024 Generated for Pedro tovar/Alexander/eTransmitting on: 0 12/27/2024 03:04 PM EDT History and Physical Notes * HPI (History of Present Illness) Category Sub-Category Detail Notes Category Not es Urology burning sensation Pt c/o of burn ing when she urine. Pt states this stated Thursday night hematuria fever Examination Category Sub-Category Detail Notes Category Not es General Examination Heart: RSR Lungs: clear to auscultatio n Abdomen: bowel sounds present , soft and nontender General Appearance: NAD Back: no CVA tenderness Chest: normal shape and exp ansion
--- OUTSIDE RECORDS SUMMARY | 2024-12-08 10:00 | XMS_ITS ---
Author Organization [facility] Address [address] [facility] [address] [place] [phone] Care Team Providers Care Reading Intervention Teacher Name Role Phone April Ayala Primary Care [...] growth Performing Lab: Notes/Report: Test performed by [facility] [address] [place] [address] , [address], [place] [address] Santy Lee MD, Petroleum Inspector Supervisor CLIA: [id number] Specimen Source Urine - Void Culture, Urine [...] 12/08/2024 Encounters Encounter Location Date Provider Diagnosis [facility] [place] [facility] [address] [phone] 12/08/2024 April Ayala UTI (lower urinary tract [...] * PATRICIA CHICASDOB:[birth year] (44 yo F)Acc No.[id number]:12/08/2024 Progress Notes Patient: Arlen MILTON PATRICIA Provider: MARIANA Knight :1980 A ge:44 Y S ex:Female Date:12/08/2024 Address:[place] [id number] Subjective: * Chief Complaints: * 1 . [...] ovary with removal. * Surgical History: [facility] -Removal of right ovary 07/2019. * [...] ome smoke detector use: yes. 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 * Medications: T aking Richa Allergy 180 [...] 1002 Urinalysis, no micro, 1036F TOBACCO NON-USER, 3074F SYST BP LT 130 MM HG, 3078F DIAST BP < 80 MM HG * Follow Up: v ia phone to report test results * Images: Billing Information: * Visit Code: 17510 Office Visit, Est Pt., Level 3. * Procedure Codes: 47274 Urinalysis, no micro. 1036F TOBACCO NON-USER. 3074F SYST BP LT 130 MM HG. 3078F DIAST BP < 80 MM HG. * Electronic signature of MARIANA Preciado on 12/27/2024 at 03:03 PM EDT Sign off status: Pending * Provider: MARIANA Knight Date: 0 12/08/2024 Generated for Pedro tovar/Alexander/Jensensmitting on: 12/27/2024 03:03 PM EDT History and Physical Notes * [...]
[2024-12-29 05:09] LABS: Neisseria gonorrhoeae, NAA Negative (Negative)
[2024-12-29 13:43] LABS: Bacterial Vaginosis Associated 0
== END 2024-12-26 23:59 | disposition home or self-care (01) ==
LOC: LAB.DROPOF 12-27 14:53
PROVIDERS: PCP Obstetrics & Gynecology; Visit Provider Obstetrics & Gynecology
DX: N93.9 Abnormal uterine and vaginal bleeding, unspecified (principal); N89.8 Other specified noninflammatory disorders of vagina
CPT/HCPCS: 87491; 87591; 87798; 87801

== ENCOUNTER 2025-01-19 15:49 | Outpatient (CLI) | payer BC, SELFPAY ==
[2025-01-19 17:11] LABS: Hematocrit 38.9 % (37.0-47.0); Hemoglobin 12.9 g/dL (12.2-16.2); Immature Granulocytes % 0.2 %; Mean Corpuscular HGB Conc 33.2 g/dL (31.8-35.4); Mean Corpuscular Hemoglobin 29.9 pg (27.0-31.2); Mean Corpuscular Volume 90.0 fl (81-99); Nucleated Red Blood Cells % 0 %; Platelet Count 320 K/mm3 (142-424); Red Blood Count 4.32 M/mm3 (4.20-5.40); Red Cell Distribution Width-SD 40.9 fL; White Blood Count 5.7 K/mm3 (4.8-10.8)
[2025-01-19 17:30] LABS: Albumin Level 4.1 g/dl (3.5-5.0); Chloride 104 mmol/L (98-107); Potassium 4.3 mmoL/L (3.5-5.1); Sodium 137 mmol/L (136-145)
[2025-01-19 17:32] LABS: Blood Urea Nitrogen 10 mg/dl (7-17); Creatinine,Serum 0.60 mg/dl (0.52-1.04); Estimated Glomerular Filt Rate 109 ml/min (>60); GFR (African American) 132 ML/MIN (>60)
[2025-01-19 17:33] LABS: Alanine Aminotransferase 14 U/L (12-78); Alkaline Phosphatase 94 U/L (38-126); Anion Gap 9.3 mEq/L (5-15); Aspartate Amino Transferase 27 U/L (14-36); Bilirubin,Direct 0.2 mg/dl (0.0-0.4); Bilirubin,Indirect 0.2 mg/dL (0.0-0.9); Bilirubin,Total 0.4 mg/dl (0.2-1.3); Bilirubin,Unconjugated 0.1 mg/dL (0.0-1.1); Calcium 9.4 mg/dl (8.4-10.2); Carbon Dioxide 28 mmol/L (22.0-30.0); Cholesterol 183 mg/dl (140-200); Glucose 78 mg/dl (74-100); HDL Cholesterol 38 mg/dl (40-60); Magnesium 1.8 mg/dl (1.6-2.3); Total Protein,Serum 6.9 g/dl (6.3-8.2)
[2025-01-19 17:42] LABS: Triglycerides 485 mg/dl (30-150)
[2025-01-19 17:49] LABS: Free T4 (Free Thyroxine) 0.97 ng/dl (0.78-2.19)
[2025-01-19 18:05] LABS: Thyroid Stimulating Hormone 0.46 uIU/mL (0.465-4.68)
== END 2025-01-19 23:59 | disposition home or self-care (01) ==
LOC: LAB 15:50
PROVIDERS: PCP Physician Assistant; Visit Provider Internal Medicine
DX: E78.5 Hyperlipidemia, unspecified (principal); I10 Essential (primary) hypertension; Z82.49 Family history of ischemic heart disease and other diseases of the circulatory system
CPT/HCPCS: 36415; 80048; 80061; 80076; 83735; 84439; 84443; 85025

== ENCOUNTER → 2025-01-31 20:19 | Outpatient (CLI) | payer BC, SELFPAY ==
--- OUTSIDE RECORDS SUMMARY | 2024-06-08 05:00 | XMS_ITS ---
Author Organization [facility] Address [address] [facility] [address] [place] [id number] Care Team Providers Care Threshing Machine Operator Name Role Phone April Ayala Primary Care Provider Allergies Allergen (clinical drug ingredient) Drug/Non Drug Allergy documented on EMR Reaction Allergy Type Onset Date Status amoxicillin Amoxicillin Unknown Drug Allergy Act ezio cephalexin Cephalexin Unknown Drug Allergy Activ e clindamycin Clindamycin Unknown Drug Allergy Act ezio Results Component Value Reference Range Notes P-Arthritis Panel, [facility] Reviewed date:06/12/2024 10:07:14 PM Interpretation:esr 31, RF 16.0, crp 0.73, CC{ 7.3 Performing Lab: Notes/Report: Test performed by [facility] [address] [place] [address] , [address], [place] [address] Santy Lee MD, Dragline Mechanic CLIA: [id number] Erythrocyte Sedimentation Rate (ESR), Automated 31 <26 mm/hr Rheumatoid Factor 16.0 <14.1 IU/mL C-Reactive Protein (CRP) 0.73 <0.50 mg/dL Antinuclear Antibodies (JOSH) Screen, Reflex JOSH 9 Panel Negative Negative This test is performed by Multiplex Bead Immunoassay methodology. Antinuclear Antibodies (JOSH) Result Note SEE COMMENT For positive Autoantibodies, please refer to the interpretive chart here: [email or web address] CCP Antibodies 7.3 <0.5-3.0 U/mL P-T4 Free (thyroxine) Reviewed date:06/12/2024 10:07:14 PM Interpretation:Normal Performing Lab: Notes/Report: Test performed by [facility], [facility] [address] [facility] , [address], [place] [address] Santy Lee MD, Dragline Mechanic CLIA: [id number] Thyroxine Free (free T4) 1.06 0.86-1.76 ng/dL Reason For Referral Diagnosis 1 Shortness of breath (R06.02) Diagnosis 2 Other fatigue (R53.8 3) [facility] Referring Provider First Name April Referring Provider Last Name Lucy Referring Provider Speciality Physician Vault Manager Referred Provider Cardiology, . Referred Provider Specialty Cardiovascul ar Disease General Notes April Ayala 06/08 9:51:12 AM > Pt needs to see cardiology at [facility], Celina Cook 06/08/2024 11:20:46 AM > faxed to [facility] Cardiology Referral Priority Routine REASON FOR VISIT discuss blood work done by OB on thyroid Medications Medication SIG (Take, Route, Frequency, Duration) Notes Start Date End Date Status Lisinopril 5 MG 1 tab(s) orally once a day; Duration: 90 days Active Escitalopram Oxalate 20 MG Take 1 tablet by mouth once daily for 90 days; Duration: 90 Active Cyclobenzaprine HCl 5 MG 1 tablet Orally three times a day as needed Active Omeprazole 20 MG Take 1 capsule by [facility] once daily; Duration: 90 days Active Rosuvastatin Calcium 10 MG 1 tablet Oral ly Once a day; Duration: 90 days Active Richa Allergy 180 MG 1 tablet Swallow whole with water; do not take with fruit juices. Orally Once a day; Duration: 30 day(s) Active Flonase Allergy Relief 50 MCG/ACT 1 spray in each nostril Nasally Once a day; Duration: 30 day(s) 05/13/2023 Active Multivitamin - 1 tablet Orally Once a day; Duration: 30 day(s) Active Junel FE 06/13 1-20 MG-MCG 1 tab(s) orall y once a day Active Vital Signs Blood pressure systolic 124 mm Hg 06/08/19 25 Blood pressure diastolic 68 mm Hg 025 Heart Rate 90 /min 06/08/2024 Height 65.50 in 06/08/2024 Weight 186.2 lbs 06/08/2024 BMI 30.51 kg/m2 06/08/2024 Encounters Encounter Location Date Provider Diagnosis [facility] [address] [place] [id number] 06/08/2024 April Ayala Other fatigue R53.83 ; Polyarthralgia M25.50 ; Abnormal thyroid blood test R79.89 and Shortness of breath R06.02 Assessments Encounter Date Diagnosis (ICD Code) Assessment Notes Treatment Notes Treatment Clinical Notes Section Notes 06/08/2024 Other fatigue (ICD-10 - R53.83) The patient is concerned about her heart. She is very fatigued and has SOA. She has a strong family history of heart disease. Will make referral to cardiology. If labs are normal may need referral to endocrinology. 06/08/2024 Polyarthralgia (ICD-10 - M25.50) 06/08/2024 Abnormal thyroid blood test (ICD-10 - R79.89) 06/08/2024 Shortness of breath (ICD-10 - R06.02) Will make cardiology referral. Plan Of Treatment Treatment Notes Assessment Notes Other fatigue The patient is janina rned about her heart. She is very fatigued and has SOA. She has a strong family history of heart disease. Will make referral to cardiology. If labs are normal may need referral to endocrinology. Shortness of breath Will make cardiology referral. Referrals Referral Date Details 06/08/2024 06/08/2024, . Cardio logy Next Appt Details Follow Up: via phone to repo rt test results, Reason: Progress Notes * PATRICIA CHICASDOB:[birth year] (44 yo F)Acc No.[id number]:06/08/2024 Progress Notes Patient: JG CHOUICA Provider: MARIANA Knight :1980 A ge:44 Y S ex:Female Date:06/08/2024 Address:[address] [place] [address] [id number] Subjective: * Chief Complaints: * 1 . discuss blood work done by OB on thyroid. * HPI: H PI: 44 year old female presents with c/o Patient is here today for?Pt is here today to discuss her blook work of thyroid. She went to her OBGYN and had her hormones checked and also had a thyroid panel done. The free thyroxine index was elevated, the T4 was elevated, and the T3 uptake was low. Her TSH was normal. A free T4 was not checked. She is still fatigued all the time. Her depression is worse but she does not want to start on any new medications. Her joints have been aching.. * ROS: D ERMATOLOGY: no R guy. n o H shweta. G ASTROENTEROLOGY: no N ausea. n o V omiting. n o D iarrhea.? U ROLOGY: no D ifficulty urinating. n o B lood in urine. * Medical History: H ypertension, Esophageal reflux, Interstitial cystitis - follows with urology, Allergic rhinitis, Endometrioma of right ovary with removal. * Surgical History: [facility] -Removal of right ovary 07/2019. * Family History: F ather: alive 65 yrs, diagnosed with Hypertension, Heart Disease. M other: alive 63 yrs.?Paternal Grand Father: , diagnosed with Heart Disease. P aternal Grand Mother: . M aternal Grand Father: , family history unknown . M aternal Grand Mother: alive. S iblings: alive, diagnosed with Hypertension. 1 brother(s) . . * Social History: C URRENT TOBACCO USE S moking Status: P atient does NOT smoke. H ome smoke detector use: yes. 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 * Medications: T aking Richa Allergy 180 MG Tablet 1 tablet Swallow whole with water; do not take with fruit juices. Orally Once a day , Taking Multivitamin - Tablet 1 tablet Orally Once a day , Taking Junel FE 06/13 1-20 MG-MCG Tablet 1 tab(s) orally once a day , Taking Flonase Allergy Relief 50 MCG/ACT Suspension 1 spray in each nostril Nasally Once a day , Taking Rosuvastatin Calcium 10 MG Tablet 1 tablet Orally Once a day , Taking Cyclobenzaprine HCl 5 MG Tablet 1 tablet Orally three times a day as needed , Taking Omeprazole 20 MG Capsule Delayed Release Take 1 capsule by mouth once daily , Taking Lisinopril 5 MG Tablet 1 tab(s) orally once a day , Taking Escitalopram Oxalate 20 MG Tablet Take 1 tablet by mouth once daily for 90 days , Medication List reviewed and reconciled with the patient * Allergies: C ephalexin, Amoxicillin, Clindamycin. Objective: * Vitals: W t:186.2, Temp:98.2, BP:124/68, HR:90, Nurse:EDWIN, Ht: 65.50, BMI:30.51. * Examination: G eneral Examination: General Appearance: D epressed, tearful. H EENT: u nremarkable. O ral cavity: n o lesions, mucosa moist and WNL, no erythema. N trevor: s upple, no lymphadenopathy. C hest: n ormal shape and expansion. H eart: R SR. L ungs: c lear to auscultation. A bdomen: bowel sounds present, soft and nontender, no organomegaly or masses, no guarding or rigidity. N eurologic Exam: I ntact, gait normal. Skin: n ormal, no rash. P eripheral pulses: n ormal (2+) bilaterally. E xtremities: n o leg edema. Assessment: * Assessment: 1. O ther fatigue - R53.83 (Primary) 2 . P olyarthralgia - M25.50 ? 3 . A bnormal thyroid blood test - R79.89 4 . S hortness of breath - R06.02 Plan: * Treatment: 2. P olyarthralgia L AB: P-Arthritis Panel, [facility] (Collection Date & Time - 06/08/2024 08:57 AM) e sr 31, RF 16.0, crp 0.73, CC{ 7.3 Value Reference Range A ntinuclear Antibodies (JOSH) Result Note SEE COMMENT - * A ntinuclear Antibodies (JOSH) Screen, Reflex JOSH 9 Panel Negative Negative - * C CP Antibodies 7.3 H <0.5-3.0 - U/mL * C -Reactive Protein (CRP) 0.73 H <0.50 - mg/dL * E rythrocyte Sedimentation Rate (ESR), Automated 31 H <26 - mm/hr * R heumatoid Factor 16.0 H <14.1 - IU/mL * April Ayala 06/12/2024 10 :06:56 PM > see TE 3.?Abnormal thyroid blood test?LAB: P-T4 Free (thyroxine) (Collection Date & Time - 06/08/2024 08:57 AM)? Normal* Value Reference Range T hyroxine Free (free T4) 1.06 0.86-1.76 - ng/d L * LucyApril Nicko 06/12/2024 10 :06:56 PM > see TE 4.?Shortness of breath? Notes: Will make cardiology referral.? Referral To:. Cardiology??Cardiovascular Disease ?Reason: * Follow Up: v ia phone to report test results * Images: Billing Information: * Visit Code: 43450 Office Visit, Est Pt., Level 4. * Procedure Codes: * Electronic signature of MARIANA Preciado on 01/31/2025 at 08:23 PM EDT Sign off status: Pending * Provider: MARIANA Knight Date: 0 06/08/2024 Generated for Pedro tovar/Alexander/eTransmitting on: 0 01/31/2025 08:23 PM EDT History and Physical Notes * HPI (History of Present Illness) Category Sub-Category Detail Notes Category Not es HPI Patient is here today for Pt is here today to discuss her blook work of thyroid. She went to her OBGYN and had her hormones checked and also had a thyroid panel done. The free thyroxine index was elevated, the T4 was elevated, and the T3 uptake was low. Her TSH was normal. A free T4 was not checked. She is still fatigued all the time. Her depression is worse but she does not want to start on any new medications. Her joints have been aching. Examination Category Sub-Category Detail Notes Category Not es General Examination HEENT: unremarkable Heart: RSR Lungs: clear to auscultatio n Abdomen: bowel sounds present , soft and nontender, no organomegaly or masses, no guarding or rigidity Extremities: no leg edema General Appearance: Depressed, tearful Skin: normal, no rash Neurologic Exam: Intact, gait normal Neck: supple, no lymphaden opathy Oral cavity: no lesions, mucosa m oist and WNL, no erythema Peripheral pulses: normal (2+) bilatera lly Chest: normal shape and exp ansion Consultation Request Notes Referral Date Referring Provider Referred Provider Not es 06/08/2024 April Ayala Cardiology, .
--- OUTSIDE RECORDS SUMMARY | 2024-07-28 10:30 | XMS_ITS ---
Author Organization [facility] Address [address] [facility] [address] [place] [id number] Care Team Providers Care Manager Federal Name Role Phone April Ayala Primary Care Provider [phone] Allergies Allergen (clinical drug ingredient) Drug/Non Drug [...] Once a day; Duration: 30 day(s) Active Qstktearl-Uigsvwou-DP 30-2-1 0 MG/5ML 5-10 ml Orally 4 times a day, prn 07/28/2024 Active Rosuvastatin Calcium 10 MG 1 tablet Oral ly Once a day; Duration: 90 days Active Lisinopril 5 MG 1 tab(s) orally once a day; Duration: 90 days Active Escitalopram Oxalate 20 MG Take 1 tablet by mouth once daily; Duration: 90 Active Cyclobenzaprine HCl 5 MG 1 tablet Orally three times a day as needed Active Omeprazole 20 MG Take 1 capsule by mo ut once daily; Duration: 90 days Active Vital Signs Blood pressure systolic 122 mm Hg 07/29/19 25 Blood pressure diastolic 72 mm Hg 025 Heart Rate 80 /min 07/28/2024 Height 65.50 in 07/28/2024 Weight 190.6 lbs 07/28/2024 BMI 31.23 kg/m2 07/28/2024 Encounters Encounter Location Date Provider Diagnosis [facility] [address] [facility] [address] [place], [place] [phone] 07/28/2024 April Ayala Acute URI J06.9 Assessments Encounter Date Diagnosis (ICD Code) Assessment Notes Treatment Notes Treatment Clinical Notes Section Notes 07/28/2024 Acute URI (ICD-10 - J06.9) fluids, rest, supportive measures for fever/symptom relief Plan Of Treatment Medication Medication Name Sig Start Date Stop Date Notes Uajlalqlc-Kunrxdrc-WC 30-2-1 0 MG/5ML 5-10 ml Orally 4 times a day, prn 07/28/2024 Treatment Notes Assessment Notes Acute URI fluids, rest, suppor tive measures for fever/symptom relief Next Appt Details Follow Up: prn, Reason: Progress Notes * PATRICIA CHICASDOB:[birth year] (44 yo F)Acc No.[id number]:07/28/2024 Progress Notes Patient: PATRICIA CHOU Provider: MARIANA Knight :1980 A ge:44 Y S ex:Female Date:07/28/2024 Address:[facility] [place], [id number] Subjective: * Chief Complaints: * 1 . [...] ovary with removal. * Surgical History: L [facility] -Removal of right ovary 07/2019. * Hospitalization/Major [...] ome smoke detector use: yes. 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 * Medications: T aking Richa Allergy 180 [...] Examination: E NT/Respiratory: General Appearance: N AD. E ars: a uditory canals normal bilaterally, TM's WNL. N ose : turbinates red, congested. S inuses : tender maxillary sinuses bilaterally. O ral cavity : erythema without exudate on pharynx, PND present. N trevor : n o cervical lymphadenopathy. H eart : R RR, normal S1 S2, no murmurs. L ungs: c lear to auscultation bilaterally. Assessment: * [...] * Procedure Codes: 9 4760 [place], [address] Flu Test- Nasal Swab, Modifiers: QW , 19585 CAPILLARY BLOOD DRAW, 76519 CBC WITH AUTO DIFF * Follow Up: p rn * Images: Billing Information: * Visit Code: 07778 Office Visit, Est Pt., Level 3. * Procedure Codes: [address] [place]. [address] Flu Test- Nasal Swab. Modifiers: QW 37922 CAPILLARY BLOOD DRAW. 35405 CBC WITH AUTO DIFF. * Electronic signature of MARIANA Preciado on 01/31/2025 at 08:24 PM EDT Sign off status: Pending * Provider: MARIANA Knight Date: 0 07/28/2024 Generated for Printi ng/Faxing/eTransmitting on: 0 01/31/2025 08:24 PM EDT History and Physical Notes * [...]
--- OUTSIDE RECORDS SUMMARY | 2024-08-16 09:45 | XMS_ITS ---
Author Organization [facility] Address [address] [facility] [address] [place] [phone] Care Team Providers Care Meter Repair Shop Supervisor Name Role Phone April Ayala Primary Care Provider [phone] Veronika Duran Joce Unavailable [phone] Allergies Allergen (clinical drug ingredient) Drug/Non Drug [...] Omeprazole 20 MG Take 1 capsule by 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 :1980 A ge:44 Y S ex:Female Date:08/16/2024 Address:[address] [place], [place] [address] [id number] Pcp:April Ayala Subjective: * Chief Complaints: * 1 . Going on a trip wants something for anxiety. * HPI: H PI: 44 year old female presents with c/o Patient is here today for?Pt sts she is here today for anxiety medication. She is flying to [place] in a couple weeks and is requesting [...] right ovary with removal. * Surgical History: [facility] -Removal of right ovary 07/2019. * Family [...] ome smoke detector use: yes. 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 * Medications: T aking Richa Allergy 180 MG Tablet 1 tablet Swallow whole with water; do not take with fruit juices. Orally Once a day , Taking Multivitamin - Tablet 1 tablet Orally Once a day , Taking Junel FE 1/20 1-20 MG-MCG Tablet 1 tab(s) orally once [...] * Images: Billing Information: * Visit Code: 88476 Office Visit, Est Pt., Level 3. * Procedure Codes: 96794 Urinalysis, no micro. 3074F SYST BP LT 130 MM HG. 3078F DIAST BP < 80 MM HG. * Electronic signature of Veronika Duran MD on 01/31/2025 at 08:23 PM EDT Sign off status: Pending * Provider: Veronika Duran M.D. Date: 0 08/16/2024 Generated for Pedro tovar/Alexander/Daljititting on: 0 01/31/2025 08:23 PM EDT History [...]
--- OUTSIDE RECORDS SUMMARY | 2024-11-18 10:00 | XMS_ITS ---
Author Organization [facility] Address [address] [facility] [address] [place] [phone] Care Team Providers Care District Attorney Name Role Phone April Ayala Primary Care Provider [phone] Allergies Allergen (clinical drug ingredient) Drug/Non Drug [...] Interpretation: Performing Lab: Notes/Report: Test performed by [facility] [address] [place] [address] , [address], [place] [address] Santy Lee MD, Manager Convention CLIA: [id number] Specimen Source Urine - Void Culture, Urine [...] Orally every 12 hrs Active Vital Signs Blood pressure systolic 122 mm Hg 11/19/19 25 Blood pressure diastolic 70 mm Hg 025 Heart Rate 78 /min 11/18/2024 Height 65.50 in 11/18/2024 Weight 185 lbs 11/18/2024 BMI 30.31 kg/m2 11/18/2024 Encounters Encounter Location Date Provider Diagnosis [facility] [address] [facility] [address] [place], [place] [phone] 11/18/2024 April Ayala Dysuria R30.0 Assessments Encounter [...] * PATRICIA CHICASDOB:[birth year] (44 yo F)Acc No.[id number]:11/18/2024 Progress Notes Patient: PATRICIA CHOU Provider: MARIANA Knight :1980 A ge:44 Y S ex:Female Date:11/18/2024 Address:[address] [place] [address] FARHANA Guerrero [id number] Subjective: * Chief Complaints: * 1 . [...] right ovary with removal. * Surgical History: [facility] -Removal of right ovary 07/2019. * [...] ome smoke detector use: yes. 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 * Medications: T aking methylPREDNISolone 4 MG [...] neg * G jeremie neg * Halima Tello 11/18/2024 02 :14:52 PM EDT > Provider [...] * Images: Billing Information: * Visit Code: 56354 Office Visit, Est Pt., Level 3. * Procedure Codes: 92192 Urinalysis, no micro. 1036F TOBACCO NON-USER. G8783 BP SCR PRFRM RCMDD DEFIND SCR INTVL. G8752 MOST RECENT SYSTOLIC BP < 140MM HG. G8754 MOST RECENT DIASTOLIC BP < 90MM HG. * Electronic signature of MARIANA Preciado on 01/31/2025 at 08:24 PM EDT Sign off status: Pending * Provider: MARIANA Knight Date: 0 11/18/2024 Generated for Pedro tovar/Alexander/eTransmitting on: 0 01/31/2025 08:24 PM EDT History [...]
--- OUTSIDE RECORDS SUMMARY | 2024-12-08 10:00 | XMS_ITS ---
Author Organization [facility] Address [address] [facility] [address] [place] [phone] Care Team Providers Care Travel Money Advisor Name Role Phone April Ayala Primary Care [...] growth Performing Lab: Notes/Report: Test performed by [facility] [address] [place] [address] , [address], [place] [address] Santy Lee MD, Edm Operator CLIA: [id number] Specimen Source Urine - Void Culture, Urine [...] Duration: 7 days 12/08/2024 Active Vital Signs Blood pressure systolic 124 mm Hg 12/09/19 25 Blood pressure diastolic 70 mm Hg 025 Heart Rate 81 /min 12/08/2024 Height 65.50 in 12/08/2024 Weight 191 lbs 12/08/2024 BMI 31.3 kg/m2 12/08/2024 Encounters Encounter Location Date Provider Diagnosis [facility] [facility] [address] [phone] 12/08/2024 April Ayala UTI (lower urinary tract [...] * PATRICIA CHICASDOB:[birth year] (44 yo F)Acc No.[id number]:12/08/2024 Progress Notes Patient: Arlen MILTON PATRICIA Provider: MARIANA Knight :1980 A ge:44 Y S ex:Female Date:12/08/2024 Address:[place] [id number] Subjective: * Chief Complaints: * 1 . [...] right ovary with removal. * Surgical History: [facility] -Removal of right ovary 07/2019. [...] ome smoke detector use: yes. 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 * Medications: T aking Richa Allergy [...] * Images: Billing Information: * Visit Code: 04677 Office Visit, Est Pt., Level 3. * Procedure Codes: 16210 Urinalysis, no micro. 1036F TOBACCO NON-USER. 3074F SYST BP LT 130 MM HG. 3078F DIAST BP < 80 MM HG. * Electronic signature of MARIANA Preciado on 01/31/2025 at 08:22 PM EDT Sign off status: Pending * Provider: MARIANA Knight Date: 12/08/2024 Generated for Pedro tovar/Alexander/Daljititting on: 01/31/2025 08:22 PM EDT History and Physical Notes * [...]
--- OUTSIDE RECORDS SUMMARY | 2025-01-31 20:25 | XMS_ITS | Patient Health Record ---
Author Organization [facility] Address [address] [place] [id number] Care Team Providers Care Manager Med Surg Name Role Phone April Ayala Primary Care Provider Veronika Duran Joce Unavailable [phone] Allergies Allergen (clinical drug ingredient) Drug/Non Drug [...] 7.3 Performing Lab: Notes/Report: Test performed by [facility] [address] [place] [address] , [address], [place] [address] Santy Lee MD, [employer] CLIA: [id number] Erythrocyte Sedimentation Rate (ESR), Automated 31 <26 mm/hr Rheumatoid Factor 16.0 <14.1 IU/mL C-Reactive Protein (CRP) 0.73 <0.50 mg/dL Antinuclear Antibodies (JOSH) Screen, Reflex JOSH 9 Panel Negative Negative This test is perform ed by Multiplex Bead Immunoassay methodology. Antinuclear Antibodies (JOSH) Result Note SEE COMMENT For positive Autoantibodies, please refer to the interpretive chart here: [email or web address] [email or web address] CCP Antibodies 7.3 <0.5-3.0 U/mL P-T4 Free (thyroxine) Reviewed date:06/12/2024 10:07:14 PM Interpretation:Normal Performing Lab: Notes/Report: Test performed by [facility] [address] [place] [address] , [address], [place] [address] Santy Lee MD, [employer] CLIA: [id number] Thyroxine Free (free T4) 1.06 0.86-1.76 ng/dL [...] 1.005 Ketone neg Bili neg Gluc neg Urinalysis - Inhouse Reviewed date:11/18/2024 04:02:44 PM Interpretation: Performing Lab: Notes/Report: Color/Clarity yellow/cloudy Leuk 3+ Nitrite neg Urobili 3.2 Protein neg pH 6.5 Blood trace-lysed Sp. Gr. 1.010 Ketone neg Bili neg Gluc neg P-Culture, Urine Reviewed date:11/21/2024 11:24:33 PM Interpretation: Performing Lab: Notes/Report: Test performed by [facility] [address] [place] [address] , [address], [place] [address] Santy Lee MD, [employer] CLIA: [id number] Specimen Source Urine - Void Culture, Urine See Below Final Report : 15,000-25,000 CFU/ml Mixed Gram Positive Organisms Three or more organisms present likely representing contamination during collection by patient's urogenital, skin, and/or fecal brandy. Organism identification and sensitivity assessment are not recommended. Specimen recollection is recommended. Urinalysis - Inhouse Reviewed date:12/09/2024 12:56:13 PM Interpretation: Performing Lab: Notes/Report: Color/Clarity yellow/cloudy Leuk 1+ Nitrite neg Urobili 1.6 Protein neg pH 6.0 Blood trace-intact Sp. Gr. 1.020` Ketone neg Bili neg Gluc neg P-Culture, Urine Reviewed date:12/13/2024 02:42:02 PM Interpretation:No growth Performing Lab: Notes/Report: Test performed by [facility] [address] [place] [address] , [address], [place] [address] Santy Lee MD, [employer] CLIA: [id number] Specimen Source Urine - Void Culture, Urine See Below Final Report : No growth Reason For Referral Diagnosis 1 Trapezius muscle spa sm (M62.838) Referral Organization [facility] Referring Provider First Name April Referring Provider Last Name Lucy Referring Provider Speciality Physician Station Baggage Agent Referred Provider Physical Therapy, . Referred Provider Specialty Physical The rapist General Notes April Ayala 03/25 9:33:53 AM > Needs at [facility], Celina Cook 04/07/2024 9:36:05 AM > faxed to [facility] PT Referral Priority Routine Diagnosis 1 Shortness of breath (R06.02) Diagnosis 2 Other fatigue (R53.8 3) [facility] Referring Provider First Name April Referring Provider Last Name Lucy Referring Provider Speciality Physician Station Baggage Agent Referred Provider Cardiology, . Referred Provider Specialty Cardiovascul ar Disease General Notes April Ayala 06/08 9:51:12 AM > Pt needs to see cardiology at [facility], Celina Cook 06/08/2024 11:20:46 AM > faxed to [facility] Cardiology Referral Priority Routine Medications Medication SIG (Take, Route, Frequency, Duration) Notes Start Date End Date Status Cyclobenzaprine HCl 5 MG 1 tablet Orally three times a day as needed Active Escitalopram Oxalate 20 MG Take 1 tablet by mouth once daily; Duration: 90 Active Rosuvastatin Calcium 10 MG 1 tablet Oral ly Once a day; Duration: 90 days Active ALPRAZolam 0.5 MG 1 tablet Orally 1 ho ur before flying 08/16/2024 Active Diflucan 150 MG 1 tablet Orally once 08/16/2024 Active Lisinopril 5 MG Take 1 tablet by once daily; Duration: 90 Active Richa Allergy 180 MG 1 tablet Swallow whole with water; do not take with fruit juices. Orally Once a day; Duration: 30 day(s) Active Omeprazole 20 MG 1 capsule 1/2 to 1 h our before morning meal Orally Once a day; Duration: 90 days Active Junel FE 06/13 1-20 MG-MCG 1 tab(s) orall y once a day Active Cipro 250 MG 1 tablet Orally ever y 12 hrs; Duration: 7 days 12/08/2024 Active Multivitamin - 1 tablet Orally Once a day; Duration: 30 day(s) Active Flonase Allergy Relief 50 MCG/ACT 1 spray in each nostril Nasally Once a day; Duration: 30 day(s) 05/13/2023 Active Immunizations Vaccine Route Administration Date Status Comme nts COVID 19 Pfizer Unknown 02/05/2021 Administered COVID 19 Pfizer Unknown 02/28/2021 Administered Problems Problem Type SNOMED Code ICD Code Onset Dates Problem Status W/U Status Risk Notes Problem Hyperlipidemia (99060458) Hyperlipidemia (E78.5) Active confirmed Problem Mixed anxiety and depressive disorder (344594627) Depression with anxiety (F41.8) Active confirmed Problem Vitamin D deficiency (36496024) Vitamin D deficiency disease (E55.9) Active confirmed Problem Mixed hyperlipidemia (091562891) Mixed hyperlipidemia (E78.2) Active confirmed Problem Fear of flying (282452204) 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) Active confirmed Problem Allergic rhinitis (16736034) Allergic rhinitis, unspecified (J30.9) Active confirmed Problem Panic disorder (517528248) Panic attacks (F41.0) Active confirmed Problem Verruca plantaris (59149245) Plantar wart, right foot (B07.0) Active confirmed Problem Allergic rhinitis (92011139) Allergic rhinitis (J30.9) Active confirmed Problem Menopause (779081403) Perimenopausal symptoms (N95.1) Active confirmed Problem Refractory migraine (413581494) Intractable migraine without status migrainosus, unspecified migraine type (G43.919) Active confirmed Problem Essential hypertension (85144961) Hypertension, unspecified type (I10) Active confirmed Problem Gastroesophageal reflux disease (278847905) Gastroesophageal reflux disease, unspecified whether esophagitis present (K21.9) Active confirmed Problem Allergic rhinitis (92692026) Allergic rhinitis due to other allergic trigger, unspecified seasonality (J30.89) Active confirmed Problem Irregular menstrual bleeding (94471143) Irregular menstrual bleeding (N92.6) Active confirmed Vital Signs Heart Rate 81 /min 12/08/2024 Blood pressure diastolic 70 mm Hg 12/08/2024 Height 65.50 in 12/08/2024 Blood pressure systolic 124 mm Hg 12/08/2024 Weight 191 lbs 12/08/2024 BMI 31.3 kg/m2 12/08/2024 Encounters Encounter Location Date [facility] [address] [place] [id number] 03/08/2024 April Ayala Allergic rhinitis du e to other allergic trigger, unspecified seasonality J30.89 [facility] [address] [place] [id number] 04/07/2024 April Lucy Trapezius muscle spa sm M62.838 and Depression with anxiety F41.8 [facility] [address] [place] [id number] 04/28/2024 April Lucy Trapezius muscle spa sm M62.838 ; Depression with anxiety F41.8 and Perimenopausal symptoms N95.1 [facility] [address] [place] [id number] 06/08/2024 April Ayala Other fatigue R53.83 ; Polyarthralgia M25.50 ; Abnormal thyroid blood test R79.89 and Shortness of breath R06.02 [facility] [address] [place] [id number] 07/28/2024 April Ayala Acute URI J06.9 [facility] [address] [place] [id number] 08/16/2024 R Joce Duran UTI (lower urinary t ract infection) N39.0 and Fear of flying F40.243 [facility] [address] [place], [place] [id number] 11/18/2024 Aprillorna Ayala Dysuria R30.0 [facility] [address] [place], [place] [id number] 12/08/2024 April Dereckdy UTI (lower urinary t ract infection) N39.0 [facility] [address] [place], [place] [id number] 02/01/2024 April Crowdy [facility] [address] [place], [place] [id number] 02/03/2024 April Dereckdy [facility] [address] [place], [place] [id number] 06/12/2024 April Dereckdy [facility] [address] [place], [place] [id number] 11/21/2024 April Dereckdy [facility] [address] [facility] [address] [place], [place] [id number] 12/26/2024 April Ayala Assessments Encounter Date Diagnosis (ICD Code) Assessment Notes Treatment Notes Treatment Clinical Notes Section Notes 04/28/2024 Depression with anxiety (ICD-10 - F41.8) [...] are normal may need referral to endocrinology. 03/08/2024 Allergic rhinitis due to other allergic [...] 04/07/2024 Trapezius muscle spasm (ICD-10 - M62.838) 07/28/2024 Acute URI (ICD-10 - J06.9) fluids, rest, supportive measures for fever/symptom relief 08/16/2024 UTI (lower urinary tract infection) (ICD-10 - N39.0) 08/16/2024 Fear of flying (ICD-10 - F40.243) 12/08/2024 UTI (lower urinary tract infection) (ICD-10 - N39.0) 11/18/2024 Dysuria (ICD-10 - R30.0) 06/08/2024 Abnormal thyroid blood test (ICD-10 - R79.89) 04/28/2024 Perimenopausal symptoms (ICD-10 - N95.1) I discussed going to see Dr. Gonzalez and having more testing done. Patient is agreeable. She will let me know when she is going to the labs so I can recheck some labs as well. 06/08/2024 Shortness of breath (ICD-10 - R06.02) Will make cardiology referral. Plan Of Treatment No Information Insurance Providers Payer Name Payer Address Payer Phone Subscriber Number Group Number Insured Name Patient Relationship to Insured Coverage Start Date Coverage End Date [facility] [address] [place] [address] [id number] PATRICIA ROBIN Self - patient is the [...] ovary with removal Surgical History Surgery Date(Month/Year) [facility] -Removal of right ovary 07/2019
== END ==
LOC: SL 20:20
PROVIDERS: PCP Physician Assistant; Visit Provider Specialist
DX: G47.33 Obstructive sleep apnea (adult) (pediatric) (principal); G47.36 Sleep related hypoventilation in conditions classified elsewhere; G47.61 Periodic limb movement disorder
CPT/HCPCS: 95811